=== PATIENT | female | born 1955 | race Caucasian/White ===

== ENCOUNTER 2017-08-03 12:12 | Emergency (ER) | payer OTHER, SELFPAY ==
[2017-08-03 12:27] VITALS: BP 140/76; PULSE 90; RESP 18; TEMP 37.1; O2SAT 98; BMI 29.2
--- NOTE | 2017-08-03 12:30 | HMH.EDUTC ---
[facility] [place] Clinical Impression: URI (upper respiratory infection) Qualifiers: URI type: unspecified URI Qualified Code(s): J06.9 - Acute upper respiratory infection, unspecified Disposition: Home, Self-Care Condition on Discharge: Good Instructions: DI for Cough -- Adult, Sore Throat, DI for Nasal Congestion Additional Instructions: * Monitor Temp. Tylenol and/or Ibuprofen as needed. ER if fever is no less than 101 despite alternating Tylenol and Ibuprofen * Encourage fluids, water, Gatorade, powerade, pedialyte if infant/toddler/or child * Warm salt water gargles for throat irritation *Warm fluids *Sore throat lozenges *Sleep elevated *humidifier or vaporizer Lots of rest Increase fluids, water, Gatorade, powerade Follow up IMMEDIATELY for new or worsening of symptoms OR no noticeable improvement over the next 48-72 hours. 911 immediately for any life threatening symptoms such as chest pain or difficulty breathing Prescriptions: Albuterol Sulfate [Albuterol HFA Inhaler] 2 puffs IH Q6HP PRN #1 inh PRN Reason: Shortness Of Breath Or Wheezing Azithromycin [Z-Milton 250mg Tab] 250 mg PO UD DOSE PK #6 tab Benzonatate [Tessalon Perle 100mg Cap] 100 mg PO TID #20 cap predniSONE [Prednisone 5mg Tab Dose-Pack] 5 mg PO UD DOSE PK #1 pack Referrals: Sukhi Lui MD [Primary Care Provider] - Time of Disposition: 12:40 Medical Decision Making - Medical Records Medical records reviewed: Yes: I reviewed the patient's medical records. Vital Signs: 08/03/17 12:27 Temperature 98.7 F Temperature Source Temporal Artery Scan Pulse Rate [Right] 90 Respiratory Rate 18 Blood Pressure [Right Arm] 140/76 Blood Pressure Mean [Right Arm] 97 Blood Pressure Source [Right Arm] Automatic Cuff Blood Pressure Position [Right Arm] Sitting 02 Sat by Pulse Oximetry 98 Oxygen Delivery Method Room Air - Jay Inquiry Pt receiving controlled substance: No Jay was queried for this patient: No [facility] [place] - General Stated complaint: congestion Mode of Arrival: Ambulatory Source of Information: Patient Limitations: No Limitations Description of Symptoms (Recalled from Triage Doc. by RN): COUGH, CONGESTION X2 MONTHS HEENT Symptoms (Recalled from RN notes): Yes Resp Symptoms (Recalled from RN notes): No Skin Symptoms (Recalled from RN notes): No MS Symptoms (Recalled from RN notes): No Functional Status (Recalled from RN notes): N - History of Present Illness Provider Complaint: Patient state that she has been having upper respiratory symptoms on and off for several months State that it has continued to get worse State that she is having sinus pain and pressure along with cough State that she has tried several over the counter medications for cough and none have helped - Related Data Previous Rx's Medication Instructions Recorded Albuterol Sulfate [Albuterol HFA 2 puffs IH Q6HP PRN #1 inh 08/03/17 Inhaler] Azithromycin [Z-Milton 250mg Tab] 250 mg PO UD DOSE PK #6 tab 08/03/17 Benzonatate [Tessalon Perle 100mg 100 mg PO TID #20 cap 08/03/17 Cap] predniSONE [Prednisone 5mg Tab 5 mg PO UD DOSE PK #1 pack 08/03/17 Dose-Pack] - Worker's Comp Is this a Worker's Comp case?: No [facility] History I have reviewed the patient's past medical history: Yes - *Social History Smoking Status: Current every day smoker Tobacco Type: cigarettes Alcohol Intake: never - Psychiatric History Expresses thoughts of harming self/others: None Suicide Plan Description: No Plan ROS Obtained: Yes All systems reviewed & no additional complaints - Constitutional Constitutional: Reports chills - ENT Ears, Nose, Mouth, and Throat: Reports otalgia, Reports sinus pain, Reports sore throat - Respiratory Respiratory: Yes cough Physical Exam - General General appearance: alert, in no apparent distress - Respiratory Respiratory exam: Present: normal lung sounds bilaterally. Absent: respiratory distress - Cardi
--- NOTE | 2017-08-03 12:36 | ED_ITS ---
[facility] [place] Clinical Impression: URI (upper respiratory infection) Qualifiers: URI type: unspecified URI Qualified Code(s): J06.9 - Acute upper respiratory infection, unspecified Disposition: Home, Self-Care Condition on Discharge: Good Instructions: DI for Cough -- Adult, Sore Throat, DI for Nasal Congestion Additional Instructions: * Monitor Temp. Tylenol and/or Ibuprofen as needed. ER if fever is no less than 101 despite alternating Tylenol and Ibuprofen * Encourage fluids, water, Gatorade, powerade, pedialyte if infant/toddler/or child * Warm salt water gargles for throat irritation *Warm fluids *Sore throat lozenges *Sleep elevated *humidifier or vaporizer Lots of rest Increase fluids, water, Gatorade, powerade Follow up IMMEDIATELY for new or worsening of symptoms OR no noticeable improvement over the next 48-72 hours. 911 immediately for any life threatening symptoms such as chest pain or difficulty breathing Prescriptions: Albuterol Sulfate [Albuterol HFA Inhaler] 2 puffs IH Q6HP PRN #1 inh PRN Reason: Shortness Of Breath Or Wheezing Azithromycin [Z-Milton 250mg Tab] 250 mg PO UD DOSE PK #6 tab Benzonatate [Tessalon Perle 100mg Cap] 100 mg PO TID #20 cap predniSONE [Prednisone 5mg Tab Dose-Pack] 5 mg PO UD DOSE PK #1 pack Referrals: Sukhi Lui MD [Primary Care Provider] - Time of Disposition: 12:40 Medical Decision Making - Medical Records Medical records reviewed: Yes: I reviewed the patient's medical records. Vital Signs: 08/03/17 12:27 Temperature 98.7 F Temperature Source Temporal Artery Scan Pulse Rate [Right] 90 Respiratory Rate 18 Blood Pressure [Right Arm] 140/76 Blood Pressure Mean [Right Arm] 97 Blood Pressure Source [Right Arm] Automatic Cuff Blood Pressure Position [Right Arm] Sitting 02 Sat by Pulse Oximetry 98 Oxygen Delivery Method Room Air - Jay Inquiry Pt receiving controlled substance: No Jay was queried for this patient: No [facility] [place] HPI - General Stated complaint: congestion Mode of Arrival: Ambulatory Source of Information: Patient Limitations: No Limitations Description of Symptoms (Recalled from Triage Doc. by RN): COUGH, CONGESTION X2 MONTHS HEENT Symptoms (Recalled from RN notes): Yes Resp Symptoms (Recalled from RN notes): No Skin Symptoms (Recalled from RN notes): No MS Symptoms (Recalled from RN notes): No Functional Status (Recalled from RN notes): N - History of Present Illness Provider Complaint: Patient state that she has been having upper respiratory symptoms on and off for several months State that it has continued to get worse State that she is having sinus pain and pressure along with cough State that she has tried several over the counter medications for cough and none have helped - Related Data Previous Rx's Medication Instructions Recorded Albuterol Sulfate [Albuterol HFA 2 puffs IH Q6HP PRN #1 inh 08/03/17 Inhaler] Azithromycin [Z-Milton 250mg Tab] 250 mg PO UD DOSE PK #6 tab 08/03/17 Benzonatate [Tessalon Perle 100mg 100 mg PO TID #20 cap 08/03/17 Cap] predniSONE [Prednisone 5mg Tab 5 mg PO UD DOSE PK #1 pack 08/03/17 Dose-Pack] - Worker's Comp Is this a Worker's Comp case?: No [facility] History I have reviewed the patient's past medical history: Yes - *Social History Smoking Status: Current every day smoker Tobacco Type: cigarettes
[2017-08-03 12:51] VITALS: BP 140/76; PULSE 90; RESP 18; TEMP 37.1
== END 2017-08-03 12:52 | disposition home or self-care (01) ==
PROVIDERS: Emergency Provider Nurse Practitioner; PCP Family Medicine
DX: J06.9 Acute upper respiratory infection, unspecified (principal)
CPT/HCPCS: 99201

== ENCOUNTER 2017-08-23 13:57 | Emergency (ER) | payer OTHER, SELFPAY ==
[2017-08-23 15:38] VITALS: BP 141/91; PULSE 107; RESP 20; TEMP 36.3; O2SAT 95; BMI 30.2
--- NOTE | 2017-08-23 16:14 | HMH.EDUTC ---
[facility] [place] Clinical Impression: Allergic bronchitis Qualifiers: Asthma severity: unspecified severity Asthma complication type: with acute exacerbation Qualified Code(s): J45.901 - Unspecified asthma with (acute) exacerbation Disposition: Home, Self-Care Condition on Discharge: Good Instructions: DI for Acute Bronchitis, DI for Allergic Rhinitis Additional Instructions: * No sign of bacterial infection. Doubt antibiotics would help you feel any better. Sounds like triggered by allergies. * Start antihistamine of your choice and take daily. (Zyrtec or jonelle since claritin doesn't help you) * Monitor Temp. Fever wouldn't be expected. Follow up if fevers develop. * humidifier/vaporizer/hot steamy shower * Inhaler every 4-6 hours as needed like we discussed. Should help open airways and improve cough, wheezing, shortness of breath. * Mucinex during the day for your cough and cough suppressant only at night. Be sure to drink lots of water. Insurance may not cover a prescription of mucinex. Might be cheaper to get 400mg tablets and take 2 tablets morning, midday and evening all with lots of water. * Promethazine DM as you requested since sherry padron didn't help. Remember this will cause drowsiness. Use it only at night. No driving, operating machinery or caring for small children after taking it. * Start steroid today. Helps with inflammation therefore, cough. Follow directions on package. Rvwd side effects. Pt has taken them before and wants to repeat them to finally shake this . Prescriptions: predniSONE [Prednisone 10mg Tab Dose-Pack] 10 mg PO UD DOSE PK #1 pack Promethazine/Dextromethorphan [Promethazine-Dm Syrup] 5 - 10 ml PO HS PRN #120 ml PRN Reason: Cough Referrals: Sukhi Lui MD [Primary Care Provider] - (IMMEDIATELY for new or worsening symptoms OR no noticeable improvement over the next 72 hours OR symptoms return again after improving. 911 for difficulty breathing.) Time of Disposition: 16:29 Medical Decision Making Vital Signs: 08/23/17 15:38 Temperature 97.4 F L Temperature Source Temporal Artery Scan Pulse Rate [Right Radial] 107 H Respiratory Rate 20 Blood Pressure [Right Arm] 141/91 Blood Pressure Mean [Right Arm] 107 Blood Pressure Source [Right Arm] Automatic Cuff Blood Pressure Position [Right Arm] Sitting 02 Sat by Pulse Oximetry 95 Oxygen Delivery Method Room Air - Jay Inquiry Pt receiving controlled substance: No [facility] [place] - General Stated complaint: upper respiratory problems Time Seen by Provider: 08/23/17 16:15 Mode of Arrival: Family Vehicle Source of Information: Patient Limitations: No Limitations Description of Symptoms (Recalled from Triage Doc. by RN): PT C/O HEAD CONGESTION AND COUGH. HEENT Symptoms (Recalled from RN notes): Yes (HEAD CONGESTION) Resp Symptoms (Recalled from RN notes): Yes (COUGH) Skin Symptoms (Recalled from RN notes): No MS Symptoms (Recalled from RN notes): No Functional Status (Recalled from RN notes): NA - History of Present Illness Provider Complaint: c/o the same upper respiratory virus again . cough, chest congestion, rhinorrhea, sneezing starting again around one week ago when the rain set in . Hx of multiple environmental allergies but can't remember to take anyting regularly for it. Symptoms started around [place]. Still blames it on moving the cat inside when really cold outside. No improvement by 08/17/17 so came into clinic. Dx URI and improved but didn't resolve with zpack, albuterol, prednisone, tessalon perles. Doesn't feel like tessalon perles helped and asking for promethazine DM instead. Albuterol as needed few times a week helps open airways. Denies wheezing. No fever. sputum only occasional. Clear. - Related Data Previous Rx's Medication Instructions Recorded Promethazine/Dextromethorphan 5 - 10 ml PO HS PRN #120 ml 08/23/17 [Promethazine-Dm Syrup] predniSONE [Prednisone 10mg Tab 10 mg PO UD DOSE PK #1 pac
[2017-08-23 16:36] VITALS: BP 134/77; PULSE 76; RESP 18; TEMP 36.6; O2SAT 99
== END 2017-08-23 16:37 | disposition home or self-care (01) ==
PROVIDERS: Emergency Provider Nurse Practitioner Family; PCP Family Medicine
DX: J45.901 Unspecified asthma with (acute) exacerbation (principal); F17.210 Nicotine dependence, cigarettes, uncomplicated
CPT/HCPCS: 99202

== ENCOUNTER 2020-03-23 13:49 | Emergency (ER) | payer MEDICARE, BC, SELFPAY ==
[2020-03-23 14:03] VITALS: BP 131/88; PULSE 87; RESP 20; TEMP 36.6; O2SAT 96; BMI 30.2
[2020-03-23 14:06] LABS: Apearance,Urine Clear (Clear); Color,Urine Yellow (Yellow); PH,Urine 5.5 (5.0-8.5); Protein,Urine Negative (Negative); Specific Gravity, Urine 1.015 (1.005-1.030)
--- NOTE | 2020-03-23 14:06 | HMH.EDUTC ---
[facility] [place] Disposition Clinical Impression: UTI (urinary tract infection) Qualifiers: Urinary tract infection type: site unspecified Hematuria presence: with hematuria Qualified Code(s): N39.0 - Urinary tract infection, site not specified Disposition: Home, Self-Care Condition on Discharge: Good Instructions: DI for Urinary Tract Infection (UTI) Additional Instructions: Drink plenty of fluids. Take tylenol or ibuprofen for pain or fever. Take the medications as directed. Follow up with your regular doctor. GO TO THE ER FOR ANY WORSENING SYMPTOMS The pyridium will make your urine turn orange, this is an expected side effect. It will stain your clothes if it comes into contact with them. Prescriptions: Ondansetron [Zofran 4mg ODT] 4 mg PO Q8HP PRN #20 tab.rapdis PRN Reason: Nausea Transmission Status: Received by [id number] Sulfamethoxazole/Trimethoprim [Bactrim DS tablet] 1 each PO BID 7 Days #14 tab Transmission Status: Received by [facility] Phenazopyridine HCl [Pyridium 200mg Tablet] 200 pow PO TID #6 tab Transmission Status: Received by [facility] Referrals: Provider,Referral, [Primary Care Provider] - Time of Disposition: 14:24 Medical Decision Making - Medical Records Medical records reviewed: No: I reviewed the patient's medical records. - Jay Inquiry Pt receiving controlled substance: No Vital Signs: 03/23/20 14:03 03/23/20 14:25 Temperature 97.8 F 97.8 F Temperature Source Oral Pulse Rate 87 Pulse Rate [Right Brachial] 87 Respiratory Rate 20 20 Blood Pressure 131/88 Blood Pressure [Right Arm] 131/88 Blood Pressure Mean [Right Arm] 102 Blood Pressure Source [Right Arm] Automatic Cuff Blood Pressure Position [Right Arm] Sitting 02 Sat by Pulse Oximetry 96 Oxygen Delivery Method Room Air - Lab Data Lab results reviewed: Yes: I reviewed the patient's lab results. Lab Results 03/23/20 14:04: Urine Color Yellow, Urine Appearance Clear, Urine pH 5.5, Ur Specific [place] 1.015, Urine Protein Negative, Urine Glucose (UA) Negative, Urine Ketones Negative, Urine Blood Negative, Urine Nitrate Positive A, Urine Bilirubin Negative, Urine Urobilinogen 0.2, Ur Leukocyte Esterase Negative Orders (Tests/Meds): ORDERS Category Date Time Status Urine Culture Stat Micro 03/23/20 14:[address] [facility] [place] HPI - General Stated complaint: possible UTI Time Seen by Provider: 03/23/20 14:06 - History of Present Illness Provider Complaint: She complains of urinary frequency and dysuria for the past 3 days. She started taking azo yesterday and it helped her symptoms some, but she states that today they are getting worse. - Related Data Previous Rx's Medication Instructions Recorded Ondansetron [Zofran 4mg ODT] 4 mg PO Q8HP PRN #20 tab.rapdis 03/23/20 Phenazopyridine HCl [Pyridium 200 pow PO TID #6 tab 03/23/20 200mg Tablet] Sulfamethoxazole/Trimethoprim 1 each PO BID 7 Days #14 tab 03/23/20 [Bactrim DS tablet] Allergies Allergy/AdvReac Type Severity Reaction Status Date / Time codeine Allergy Mild Verified 08/03/17 12:30 [facility] History - Hepatitis A Screen Attestation statement:: This patient has been screened for Hepatitis A risk factors. I have reviewed the patient's past medical history: Yes Medical History: Denies:: Diabetes Mellitus Type 1, Diabetes Mellitus Type 2, Hypertension Other Surgeries: Yes: Other (cholecystectomy) - Social History Smoking Status: Current every day smoker Tobacco Type: cigarettes # Packs/Day (cigarettes): 1 Alcohol Intake: never Occupational Status: other ROS Obtained: Yes All systems reviewed & no additional complaints - Constitutional Constitutional: Denies chills, Denies fever(s), Reports poor appetite, Reports malaise - Eyes Eyes: Denies eye discharge - Gastrointestinal Gastrointestingal: Reports: nausea. Denies: system reviewed and no a
[2020-03-23 14:07] LABS: Bilirubin,Urine Negative (Negative); Blood, Urine Negative (Negative); Glucose,Urine (UA) Negative (Negative); Ketones,Urine Negative (Negative); UTC Leukocyte Esterase,Urine Negative (Negative); UTC Nitrate,Urine Positive (Negative); Urobilinogen,Urine 0.2 EU/dl (0.2)
[2020-03-23 14:25] VITALS: BP 131/88; PULSE 87; RESP 20; TEMP 36.6; O2SAT 96
== END 2020-03-23 14:28 | disposition home or self-care (01) ==
PROVIDERS: Emergency Provider Nurse Practitioner Family
DX: N30.00 Acute cystitis without hematuria (principal); F17.210 Nicotine dependence, cigarettes, uncomplicated; Z88.5 Allergy status to narcotic agent
CPT/HCPCS: G0463; 81003; 87086; 99201

== ENCOUNTER 2020-04-14 16:05 | Emergency (ER) | payer MEDICARE, BC, SELFPAY ==
[2020-04-14 17:09] VITALS: BP 148/87; PULSE 101; RESP 18; TEMP 36.7; O2SAT 94; BMI 30.2
[2020-04-14 17:21] LABS: Apearance,Urine Clear (Clear); Bilirubin,Urine Negative (Negative); Blood, Urine Negative (Negative); Color,Urine Yellow (Yellow); Glucose,Urine (UA) Negative (Negative); Ketones,Urine Negative (Negative); Protein,Urine Negative (Negative); UTC Leukocyte Esterase,Urine Negative (Negative); UTC Nitrate,Urine Negative (Negative); Urobilinogen,Urine 0.2 EU/dl (0.2)
--- NOTE | 2020-04-14 17:50 | HMH.EDUTC ---
[facility] [place] Disposition Clinical Impression: Urinary problem Disposition: Home, Self-Care Condition on Discharge: Good Instructions: DI for Urinary Tract Infection (UTI) Additional Instructions: Make sure that you are drinking plenty of fluids At this time your urine did not indicate infection if you continue to have UTI symptoms follow up with your Family Doctor for retesting of your urine you was given a list of accepting doctors Return if needed Straight to ER If any life threatening symptoms Recommend getting Family Doctor for extensive work up and laboratory testing Referrals: PCP,No [Primary Care Provider] - As needed Time of Disposition: 18:02 Medical Decision Making - Jay Inquiry Pt receiving controlled substance: No Jay was queried for this patient: No Vital Signs: 04/14/20 17:09 Temperature 98.1 F Temperature Source Oral Pulse Rate [Right Brachial] 101 H Respiratory Rate 18 Blood Pressure [Right Arm] 148/87 H Blood Pressure Mean [Right Arm] 107 Blood Pressure Source [Right Arm] Automatic Cuff Blood Pressure Position [Right Arm] Sitting 02 Sat by Pulse Oximetry 94 L - Lab Data Lab results reviewed: Yes: I reviewed the patient's lab results. Lab Results 04/14/20 17:03: Urine Color Yellow, Urine Appearance Clear, Urine pH 7.0, Ur Specific [place] 1.020, Urine Protein Negative, Urine Glucose (UA) Negative, Urine Ketones Negative, Urine Blood Negative, Urine Nitrate Negative, Urine Bilirubin Negative, Urine Urobilinogen 0.2, Ur Leukocyte Esterase Negative Medical Decision Narrative: Discussed the importance with patient to make sure that she takes all prescribed medication for the duration that the medication is prescribed to clear up infection Patient informed that her Urine test does not indicate infection at this time and if she continues to have symptoms recommend follow up with PCP for retesting of her urine and further treatment if needed Denies fever denies low back pain [facility] [place] HPI - General Stated complaint: Possible UTI Time Seen by Provider: 04/14/20 17:50 Mode of Arrival: Family Vehicle Description of Symptoms (Recalled from Triage Doc. by RN): Pt states she was treated for UTI a 2 wks ago with Bactrim and isn't feeling any better HEENT Symptoms (Recalled from RN notes): No Resp Symptoms (Recalled from RN notes): No Skin Symptoms (Recalled from RN notes): No MS Symptoms (Recalled from RN notes): No Functional Status (Recalled from RN notes): WNl - History of Present Illness Provider Complaint: Patient state that she was seen and treated for UTI about 3 weeks ago and started taking the bactrim and then stopped and a few days ago realized she didnt take all her medication after she started having symptoms again and she has since finished the bactrim and wasnt sure if she needed more to clear up the infection - Related Data Previous Rx's Medication Instructions Recorded Ondansetron [Zofran 4mg ODT] 4 mg PO Q8HP PRN #20 tab.rapdis 03/23/20 Phenazopyridine HCl [Pyridium 200 pow PO TID #6 tab 03/23/20 200mg Tablet] Sulfamethoxazole/Trimethoprim 1 each PO BID 7 Days #14 tab 03/23/20 [Bactrim DS tablet] Allergies Allergy/AdvReac Type Severity Reaction Status Date / Time codeine Allergy Mild Verified 08/03/17 12:30 - Worker's Comp Is this a Worker's Comp case?: No [facility] History - Hepatitis A Screen Drug use history?: No High risk sexual behaviors?: No History of sexually transmitted infection?: No Currently employed?: No Childcare worker?: No Do you have indoor plumbing?: Yes Do you have electricity?: Yes Attestation statement:: This patient has been screened for Hepatitis A risk factors. I have reviewed the patient's past medical history: Yes Medical History: Denies:: Diabetes Mellitus Type 1, Diabetes Mellitus Type 2, Hypertension Other Surgeries: Yes: Other (cholecystectomy) - Social History Smoking Status: Current every day smoker Tobacco Typ
[2020-04-14 18:10] VITALS: BP 148/87; PULSE 101; RESP 18; TEMP 36.7; O2SAT 94
== END 2020-04-14 18:14 | disposition home or self-care (01) ==
PROVIDERS: Emergency Provider Nurse Practitioner
DX: N39.0 Urinary tract infection, site not specified (principal); F17.210 Nicotine dependence, cigarettes, uncomplicated; Z88.5 Allergy status to narcotic agent; Z90.49 Acquired absence of other specified parts of digestive tract
CPT/HCPCS: G0463; 81003; 99201

== ENCOUNTER → 2020-07-11 14:20 | Outpatient (CLI) | payer MEDICARE, BC, SELFPAY ==
[2020-07-11 16:08] LABS: Basophils # 0.1 K/mm3 (0-0.2); Basophils % 1.1 % (0.1-2.0); Eosinophils # 0.2 K/mm3 (0.0-0.4); Eosinophils % 2.3 % (0.1-12.0); Hematocrit 55.1 % (37.0-47.0); Lymphocytes # 2.4 K/mm3 (0.7-4.5); Lymphocytes % 26.9 % (10-50); Mean Corpuscular HGB Conc 33.5 g/dL (31.8-35.4); Mean Corpuscular Hemoglobin 32.3 pg (27.0-31.2); Mean Corpuscular Volume 96.2 fl (81-99); Mean Platelet Volume 9.3 fl (7.4-10.4); Monocytes # 0.6 K/mm3 (0.1-1.0); Monocytes % 6.5 % (1.7-9.3); Neutrophils # 5.5 K/mm3 (1.8-7.8); Neutrophils % 63.2 % (37.0-80.0); Platelet Count 441 K/mm3 (142-424); Red Blood Count 5.73 M/mm3 (4.20-5.40); White Blood Count 8.7 K/mm3 (4.8-10.8)
[2020-07-11 16:13] LABS: Alanine Aminotransferase 23 U/L (12-78); Albumin Level 4.8 g/dl (3.5-5.0); Albumin/Globulin Ratio 1.3 (1.1-1.8); Alkaline Phosphatase 137 U/L (38-126); Anion Gap 13.8 mEq/L (5-15); Aspartate Amino Transferase 27 U/L (14-36); Bilirubin,Total 0.9 mg/dl (0.2-1.3); Blood Urea Nitrogen 10 mg/dl (7-17); Calcium 10.2 mg/dl (8.4-10.2); Carbon Dioxide 27 mmol/L (22.0-30.0); Chloride 102 mmol/L (98-107); Chol/HDL Ratio 5.8 (1-3.5); Cholesterol 209 mg/dl (140-200); Estimated Glomerular Filt Rate 100 ml/min (>60); GFR (African American) 121 ML/MIN (>60); Globulin 3.8 g/dL (1.3-3.2); Glucose 123 mg/dl (74-100); HDL Cholesterol 36 mg/dl (40-60); Potassium 4.8 mmoL/L (3.5-5.1); Sodium 138 mmol/L (136-145); Total Protein,Serum 8.6 g/dl (6.3-8.2); Triglycerides 243 mg/dl (30-150); VLDL Cholesterol 49 mg/dL (0-40)
[2020-07-11 16:25] LABS: Direct LDL Cholesterol 126.69 mg/dL (100-129)
[2020-07-11 16:31] LABS: T4 (Thyroxine) 9.3 ug/dl (5.53-11.0)
[2020-07-11 16:44] LABS: Thyroid Stimulating Hormone 3.94 uIU/mL (0.465-4.68)
[2020-07-11 18:06] LABS: Hemoglobin 18.5 g/dL (12.2-16.2)
[2020-07-12 13:50] LABS: Hemoglobin A1C 5.9 % (4.0-6.0)
== END ==
PROVIDERS: Visit Provider Nurse Practitioner Family
DX: I10 Essential (primary) hypertension (principal); R53.83 Other fatigue; Z00.00 Encounter for general adult medical examination without abnormal findings; N39.0 Urinary tract infection, site not specified; J06.9 Acute upper respiratory infection, unspecified; R73.09 Other abnormal glucose
CPT/HCPCS: 80053; 80061; 83036; 84436; 84443; 85025; 87086

== ENCOUNTER → 2020-07-17 16:33 | Outpatient (CLI) | payer MEDICARE, BC, SELFPAY ==
--- NOTE | 2020-07-17 16:36 | XR_ITS ---
PROCEDURE: XR CHEST 2V CLINICAL HISTORY: elevated alk phos. COMPARISON: No exams were available for comparison FINDINGS: The cardiomediastinal silhouette and pulmonary vascularity are within normal limits. No lobar consolidation or collapse. There are increased markings in the right perihilar region felt to be due to overlying vasculature. No acute bony abnormalities. IMPRESSION: No acute findings. Dictated by: Esvin John MD 07/18/2020 06:00 Esvin John MD in [place] 07/18/2020 06:00
== END ==
PROVIDERS: PCP Nurse Practitioner Family; Visit Provider Nurse Practitioner Family
DX: R74.8 Abnormal levels of other serum enzymes (principal)
CPT/HCPCS: 71046

== ENCOUNTER 2020-09-30 12:56 | Emergency (ER) | payer MEDICARE, BC, SELFPAY ==
[2020-09-30 13:19] VITALS: BP 130/75; PULSE 86; RESP 14; TEMP 36.9; O2SAT 95; BMI 27.3
[2020-09-30 13:23] LABS: Apearance,Urine Clear (Clear); Color,Urine Yellow (Yellow)
[2020-09-30 13:24] LABS: Bilirubin,Urine Negative (Negative); Blood, Urine Negative (Negative); Glucose,Urine (UA) Negative (Negative); Ketones,Urine Negative (Negative); Protein,Urine Negative (Negative); Specific Gravity, Urine 1.015 (1.005-1.030); UTC Leukocyte Esterase,Urine Negative (Negative); UTC Nitrate,Urine Positive (Negative); Urobilinogen,Urine 2 EU/dl (0.2)
--- NOTE | 2020-09-30 13:33 | HMH.EDUTC ---
[facility] [place] [place] Impression: UTI (urinary tract infection) Qualifiers: Urinary tract infection type: site unspecified Hematuria presence: with hematuria Qualified Code(s): N39.0 - Urinary tract infection, site not specified Disposition: Home, Self-Care Condition on Discharge: Good Instructions: Urinary Tract Infection, DI for Urinary Tract Infection (UTI) Additional Instructions: Drink plenty of fluids. Take tylenol or ibuprofen for pain or fever. Take the medications as directed. Follow up with your regular doctor. GO TO THE ER FOR ANY WORSENING SYMPTOMS The pyridium will make your urine turn orange, this is an expected side effect. It will stain your clothes if it comes into contact with them. Prescriptions: Ondansetron [Zofran 4mg ODT] 4 mg PO Q8HP PRN #12 tab.rapdis PRN Reason: Nausea [facility] Status: [facility] Sulfamethoxazole/Trimethoprim [Bactrim DS tablet] 1 each PO BID 7 Days #14 tab Transmission Status: [facility] Phenazopyridine HCl [Pyridium 200mg Tablet] 200 pow PO TID #6 tab Transmission Status: [facility] Referrals: Shu Munson APRN [Primary Care Provider] - Time of Disposition: 13:41 Medical Decision Making - Medical Records Medical records reviewed: No: I reviewed the patient's medical records. - Jay Inquiry Pt receiving controlled substance: No Vital Signs: 09/30/20 13:19 09/30/20 13:45 Temperature 98.4 F 98 F Temperature Source Oral Pulse Rate 80 Pulse Rate [Right] 86 Respiratory Rate 14 18 Blood Pressure 129/79 Blood Pressure [Right Arm] 130/75 Blood Pressure Mean [Right Arm] 93 Blood Pressure Source [Right Arm] Automatic Cuff Blood Pressure Position [Right Arm] Sitting 02 Sat by Pulse Oximetry 95 Oxygen Delivery Method Room Air - Lab Data Lab results reviewed: Yes: I reviewed the patient's lab results. Lab Results 09/30/20 13:11: Urine Color Yellow, Urine Appearance Clear, Urine pH 7.0, Ur Specific [place] 1.015, Urine Protein Negative, Urine Glucose (UA) Negative, Urine Ketones Negative, Urine Blood Negative, Urine Nitrate Positive A, Urine Bilirubin Negative, Urine Urobilinogen 2, Ur Leukocyte Esterase Negative Orders (Tests/Meds): ORDERS Category Date Time Status Urine Culture Stat Micro 09/30/20 15:15 [place] [facility] [place] General Stated complaint: possible UTI Time Seen by Provider: 09/30/20 13:33 Mode of Arrival: Ambulatory Source of Information: Patient Limitations: No Limitations Description of Symptoms (Recalled from Triage Doc. by RN): pt thinks she has a uti. burning with urination. HEENT Symptoms (Recalled from RN notes): No Resp Symptoms (Recalled from RN notes): No Skin Symptoms (Recalled from RN notes): No MS Symptoms (Recalled from RN notes): No Functional Status (Recalled from RN notes): na - History of Present Illness Provider Complaint: She c/o burning while urinating for the past 2 days. She ran a fever last night up to 100.8. She also c/o urinary frequency. - Related Data Previous Rx's Medication Instructions Recorded prednisone 20 mg tablet 20 mg PO BID #10 tab 07/11/20 Ondansetron [Zofran 4mg ODT] 4 mg PO Q8HP PRN #12 tab.rapdis 09/30/20 Phenazopyridine HCl [Pyridium 200 pow PO TID #6 tab 09/30/20 200mg Tablet] Sulfamethoxazole/Trimethoprim 1 each PO BID 7 Days #14 tab 09/30/20 [Bactrim DS tablet] Allergies Allergy/AdvReac Type Severity Reaction Status Date / Time codeine Allergy Mild Verified 09/30/20 13:19 - Worker's Comp Is this a Worker's Comp case?: No [facility] History - Hepatitis A Screen Drug use history?: No High risk sexual behaviors?: No History of sexually transmitted infection?: No Currently employed?: No Childcare worker?: No Do you have indoor plumbing?: Yes Do you have electricity?: Yes Attestation statement:: This patient has been screened for Hepati
[2020-09-30 13:45] VITALS: BP 129/79; PULSE 80; RESP 18; TEMP 36.6
== END 2020-09-30 13:47 | disposition home or self-care (01) ==
PROVIDERS: Emergency Provider Nurse Practitioner Family; PCP Nurse Practitioner Family
DX: N30.00 Acute cystitis without hematuria (principal); F17.210 Nicotine dependence, cigarettes, uncomplicated; Z88.5 Allergy status to narcotic agent
CPT/HCPCS: G0463; 81003; 87086; 99202

== ENCOUNTER → 2021-02-18 13:31 | Outpatient (CLI) | payer MEDICARE, BC, SELFPAY ==
--- NOTE | 2021-02-18 13:32 | MM_ITS ---
PROCEDURE: MM DIG MAMM BI DX W/CAD Digital Breast Tomosynthesis Included Right breast ultrasound complete with axilla CLINICAL INDICATION: breast mass COMPARISON: US US BREAST RT COMPLETE from 02/24/2021 TECHNIQUE: Standard CC and MLO images and 3D Tomosynthesis was obtained. R2 CAD reviewed. FINDINGS: Palpable areas of concern are reported involving the lateral and medial aspect of the right breast. Scattered areas of fibroglandular tissue. There are no previous exams available for comparison. Palpable abnormality reported in the upper outer right breast and in the medial left breast. Scattered small benign-appearing nodular opacities are present bilaterally. This may be due to small cysts or islands of fibroglandular tissue. Asymmetric density is present in the outer right breast as seen on the CC view which mostly compresses out on the focal spot compression view. Ultrasound right breast: No cystic or solid lesions evident. There are scattered small areas of increased echogenicity consistent with small lipomas. Small nodes are present in the axilla. IMPRESSION: Scattered areas of asymmetric density in both breasts. Since this is the patient's baseline exam, would suggest a six-month follow-up to confirm stability BI-RAD Category: 3 Probably Benign Finding Short Term Follow-Up FOLLOW-UP: 6M 6 Month Follow-up (A letter has been sent to the patient regarding results of the study.) Dictated by: Esvin John MD 03/04/2021 14:49 Esvin John MD in [place] 03/04/2021 14:49
== END ==
PROVIDERS: PCP Nurse Practitioner Family; Visit Provider Nurse Practitioner Family
DX: N63.0 Unspecified lump in unspecified breast (principal); N64.59 Other signs and symptoms in breast
CPT/HCPCS: 77062; 77066; G0279

== ENCOUNTER → 2021-02-24 14:17 | Outpatient (CLI) | payer MEDICARE, BC, SELFPAY ==
--- NOTE | 2021-02-24 14:17 | US_ITS ---
PROCEDURE: MM DIG MAMM BI DX W/CAD Digital Breast Tomosynthesis Included Right breast ultrasound complete with axilla CLINICAL INDICATION: breast mass COMPARISON: US US BREAST RT COMPLETE from 02/24/2021 TECHNIQUE: Standard CC and MLO images and 3D Tomosynthesis was obtained. R2 CAD reviewed. FINDINGS: Palpable areas of concern are reported involving the lateral and medial aspect of the right breast. Scattered areas of fibroglandular tissue. There are no previous exams available for comparison. Palpable abnormality reported in the upper outer right breast and in the medial left breast. Scattered small benign-appearing nodular opacities are present bilaterally. This may be due to small cysts or islands of fibroglandular tissue. Asymmetric density is present in the outer right breast as seen on the CC view which mostly compresses out on the focal spot compression view. Ultrasound right breast: No cystic or solid lesions evident. There are scattered small areas of increased echogenicity consistent with small lipomas. Small nodes are present in the axilla. IMPRESSION: Scattered areas of asymmetric density in both breasts. Since this is the patient's baseline exam, would suggest a six-month follow-up to confirm stability BI-RAD Category: 3 Probably Benign Finding Short Term Follow-Up FOLLOW-UP: 6M 6 Month Follow-up (A letter has been sent to the patient regarding results of the study.) Dictated by: Esvin John MD 03/10/2021 10:24 Esvin John MD in [place] 03/10/2021 10:24
== END ==
PROVIDERS: PCP Nurse Practitioner Family; Visit Provider Nurse Practitioner Family
DX: R92.8 Other abnormal and inconclusive findings on diagnostic imaging of breast (principal)
CPT/HCPCS: 76641

== ENCOUNTER 2022-04-11 13:53 | Emergency (ER) | payer MEDICARE, BC, SELFPAY ==
[2022-04-11 14:26] LABS: Apearance,Urine Cloudy (Clear); Bilirubin,Urine Negative (Negative); Blood, Urine Negative (Negative); Color,Urine Dark Yellow (Yellow); Glucose,Urine (UA) Negative (Negative); Ketones,Urine Negative (Negative); Protein,Urine Negative (Negative); Urobilinogen,Urine 0.2 EU/dl (0.2)
[2022-04-11 14:27] LABS: UTC Leukocyte Esterase,Urine Negative (Negative); UTC Nitrate,Urine Positive (Negative)
[2022-04-11 14:45] VITALS: BP 140/92; PULSE 96; RESP 18; TEMP 37.2; O2SAT 93; BMI 28.5
--- NOTE | 2022-04-11 15:05 | EXP.UTC ---
Discharge Plan Disposition Patient Disposition: Home, Self-Care Condition: Good Prescriptions Prescriptions: New cephalexin 500 mg capsule 500 mg PO BID 7 Days Qty: 14 0RF phenazopyridine [Pyridium] 200 mg tablet 200 mg PO Q8H 2 Days Qty: 6 0RF No Action albuterol sulfate [Ventolin HFA] 90 mcg/actuation HFA aerosol inhaler 1 puff INHALATION Q6H Qty: 6.7 0RF Rx Instructions: administer with spacer Referrals Follow up/Referrals: Lenard Tracy MD [Primary Care Provider] - See instructions Activity Restrictions/Add. Instructions Additional Instructions/Restrictions: *Increase fluids. Water not Soda or Tea *Start antibiotic immediately and be sure to take as ordered for the FULL length of time although you should start to see improvement over the next 48 hours *Pyridium as needed Remember this medication will turn your urine . This is normal but it will stain what ever it gets on *You should not use Pyridium for more than 48 hours. If so , follow up with your primary physician to review urine culture and ensure that antibiotic is adequate for infection *Be SURE to follow up anytime for new or worsening symptoms with your family doctor. AND in 48 hours for urine culture results with your family doctor, if you do not have a doctor then you may call back to the [facility] for urine culture results and further treatment. We do recommend that you choose and establish care with a Primary Care Physician. ?AND follow up with them ?in 10-14 days to repeat UA to ensure infection is resolved and blood no longer present *Be sure to let your PCP know that we sent urine cultures from the [facility] so they can follow up to ensure that you area the on the correct antibiotic Call your doctor office and make appointment for 48 hours (2 days from today) ?to follow up and get the results of your urine culture and further treatment Clinical Impressions Clinical Impression: UTI (urinary tract infection) Instructions Patient Instructions: DI for Urinary Tract Infection (UTI), Urinary Tract Infection Discharge ED Provider: Savi Espinosa [facility] [place] H[place] General Stated complaint: possible UTI Mode of Arrival: Ambulatory Source of Information: Patient Limitations: No Limitations Time Seen by Provider: 04/11/22 15:05 Description of Symptoms (Recalled from Triage Doc. by RN): PATIENT C/O NAUSEA, URINARY FREQUENCY, PRESSURE IN BLADDER, AND PAIN WITH URINATION X 2 DAYS HEENT Symptoms (Recalled from RN notes): No Resp Symptoms (Recalled from RN notes): No Skin Symptoms (Recalled from RN notes): No MS Symptoms (Recalled from RN notes): No Functional Status (Recalled from RN notes): WNL History of Present Illness Provider Complaint: Patient states that she feels like she has a UTI States that she is having symptoms like she gets with UTI States that she has been having achy like pain in lower back, pressure and feeling of urgency and frequency States that today she was still having symptoms so she came in to get checked out Related Data Previous Rx's Medication Instructions Recorded albuterol sulfate 90 mcg/actuation 1 puff inhalation Q6H #6.7 grams 03/31/21 aerosol inhaler (Ventolin HFA) cephalexin 500 mg capsule 500 mg PO BID 7 days #14 caps 04/11/22 phenazopyridine 200 mg tablet 200 mg PO Q8H pain 2 days #6 tabs 04/11/22 (Pyridium) Allergies Allergy/AdvReac Type Severity Reaction Status Date / Time codeine Allergy Mild Verified 03/31/21 11:19 Worker's Comp Is this a Worker's Comp case?: No [facility] Medical History (Updated 04/11/22 @ 15:15 by Savi Espinosa APRN) Urinary tract infection Surgical History (Updated 04/11/22 @ 14:54 by Kathrin Hines RN) History of tubal ligation Social History (Updated 04/11/22 @ 14:54 by Kathrin Hines RN) Smoking Status: Current every day smoker tobacco type: cigarettes packs per day: 1 second hand exposure: Yes alcohol intake: never substance use type: denies use
[2022-04-11 15:23] VITALS: BP 140/92; PULSE 96; RESP 18; TEMP 37.2; O2SAT 95
== END 2022-04-11 15:26 | disposition home or self-care (01) ==
PROVIDERS: Emergency Provider Nurse Practitioner; PCP Emergency Medicine
DX: N39.0 Urinary tract infection, site not specified (principal)
CPT/HCPCS: 81003; 87086; 87088; 87186; 99212; G0463

== ENCOUNTER → 2023-03-19 16:00 | Outpatient (CLI) | payer MEDICARE, BC, SELFPAY ==
--- NOTE | 2023-03-19 16:01 | MM_ITS ---
PROCEDURE INFORMATION: Exam: MG Bilateral Screening 3D Mammography Exam date and time: 03/19/2023 3:48 PM Age: 68 years old Clinical indication: Screening mammogram. No personal or family history of breast cancer TECHNIQUE: Imaging protocol: Bilateral Screening tomosynthesis and 2D mammography including computer-aided detection (CAD) when performed. COMPARISON: 1. MG MM DIG MAMM BI DX W/CAD 02/18/2021 1:39 PM 2. US BREAST RT COMPLETE 02/24/2021 2:31 PM FINDINGS: MAMMOGRAPHY: Breast composition: There are scattered areas of fibroglandular density. Mass: None. Architectural distortion: No new or suspicious architectural distortion. Calcifications: No new or suspicious calcifications are present Asymmetric density: No new or suspicious asymmetric density is present Skin thickening: None. Axillary adenopathy: None. IMPRESSION: No mammographic evidence of malignancy. Recommend annual screening mammography unless otherwise clinically indicated. ASSESSMENT: BI-RADS category 1: Negative
== END ==
PROVIDERS: PCP Nurse Practitioner Family; Visit Provider Nurse Practitioner Family
DX: Z12.31 Encounter for screening mammogram for malignant neoplasm of breast (principal)
CPT/HCPCS: 77063; 77067

== ENCOUNTER 2023-06-25 16:27 | Emergency (ER) | payer MEDICARE, BC, SELFPAY ==
--- NOTE | 2023-06-25 16:35 | XR_ITS ---
PROCEDURE INFORMATION: Exam: XR Right Forearm Exam date and time: 06/25/2023 5:01 PM Age: 68 years old Clinical indication: Injury or trauma; Fall; Blunt trauma (contusions or hematomas); Arm, lower; Right TECHNIQUE: Imaging protocol: Radiologic exam of the right forearm. Views: 2 views. COMPARISON: No relevant prior studies available. FINDINGS: Bones/joints: Normal. Soft tissues: Normal. IMPRESSION: No acute findings.
[2023-06-25 17:10] VITALS: BP 175/84; PULSE 111; RESP 23; TEMP 36.9; O2SAT 91; BMI 33.1
--- NOTE | 2023-06-25 17:11 | ED_ITS ---
Discharge Plan Disposition Patient Disposition: Home, Self-Care Condition: Good Prescriptions Prescriptions: No Action levocetirizine [Xyzal] 5 mg tablet 5 mg PO DAILY albuterol sulfate [Ventolin HFA] 90 mcg/actuation HFA aerosol inhaler 2 puff INHALATION Q4-6H PRN (Reason: shortness of breath or wheezing) Qty: 6.7 3RF Rx Instructions: administer with spacer buspirone 7.5 mg tablet 7.5 mg PO BID PRN (Reason: anxiety) 30 Days Qty: 60 2RF docusate sodium [Colace] 100 mg capsule 100 mg PO DAILY PRN cyclobenzaprine 10 mg tablet 10 mg PO TID PRN (Reason: muscle spasm) prednisone 20 mg tablet 20 mg PO BID Patient Comments: TAKE 1 TABLET BY MOUTH TWICE DAILY WITH MEALS sertraline 25 mg tablet 25 mg PO QHS Qty: 30 1RF Referrals Follow up/Referrals: Fly Garcia DO [Staff Physician] - See instructions Bozena Washburn APRN [Primary Care Provider] - See instructions Activity Restrictions/Add. Instructions Additional Instructions/Restrictions: Rest the extremity, apply ice for 15 minutes as tolerated three or four times per day, Wear the yasmin wrap for compression, Elevate the extremity as tolerated while you are resting. Take tylenol or ibuprofen for pain. Follow up with Dr. Garcia (orthopedics). I put in a referral but you need to call his office and schedule an appointment. Follow up with your regular doctor. GO TO THE ER FOR ANY WORSENING SYMPTOMS Clinical Impressions Clinical Impression: Right forearm pain, Contusion of right forearm, Fall Instructions Patient Instructions: Contusion, DI for Contusion Discharge ED Provider: Xavi Briggs [facility] General Stated complaint: AO fall 06/24, right arm pain Time Seen by Provider: 06/25/23 17:11 History of Present Illness Provider Complaint: She states that she fell (yesterday) and came down with her right arm between her and the edge of a step. She has had right forearm pain and bruising since this happened. She denies any other injury. Related Data Home Medications Medication Instructions Recorded Confirmed levocetirizine 5 mg tablet (Xyzal) 5 mg PO DAILY 01/20/23 03/08/23 cyclobenzaprine 10 mg tablet 10 mg PO TID PRN muscle spasm 03/08/23 docusate sodium 100 mg capsule 100 mg PO DAILY PRN 03/08/23 03/08/23 (Colace) prednisone 20 mg tablet 20 mg PO BID 03/08/23 03/08/23 Previous Rx's Medication Instructions Recorded albuterol sulfate 90 mcg/actuation 2 puff inhalation Q4-6H PRN 01/20/23 aerosol inhaler (Ventolin HFA) shortness of breath or wheezing #6.7 grams buspirone 7.5 mg tablet 7.5 mg PO BID PRN anxiety 30 days 01/20/23 #60 tabs sertraline 25 mg tablet 25 mg PO QHS #30 tabs 03/08/23 Allergies Allergy/AdvReac Type Severity Reaction Status Date / Time codeine Allergy Mild Verified 03/08/23 10:19 [facility] Disclaimer: The information contained in this section may have been updated after the patient was seen, as this information can be updated by other users. Medical History Acute bronchitis Allergic bronchitis Dermatitis Immunization due Prolapse of uterus Shingles Sinusitis Strain of mid-back URI (upper respiratory infection) Urinary problem Urinary tract infection UTI (urinary tract infection) Surgical History History of tubal ligation Hx of cholecystectomy Family History Mother Parkinson disease Dementia Father Stroke Other No significant family history Social History Smoking Status: Current every day smoker tobacco type: cigarettes packs per day: 1 second hand exposure: Yes alcohol intake: never substance use type: denies use current occupational status: employed Travel in the last 8 weeks: None ROS Obtained: Yes All systems reviewed & no additional complaints except as documented Constitutional Constitutional: Denies chills and Denies fever(s) Eyes Eyes: Denies eye discharge ENT Ears, Nose, Mouth, and Throat: Denies dizziness, Denies otalgia and Denies sore throat Cardiovascular Cardiovascular: Denies chest pain Respiratory Respiratory: Denies shortness of breath, Denies chest congestion, Denies cough, Denies stridor and Denies wheezing Gastrointestinal Gastrointestingal: Denies nausea or vomiting Musculoskeletal Musculoskeletal: Reports as per HPI Integumentary/Breasts Skin/Breast: Denies rash Neurologic Neurologic: Denies dizziness and Denies paresthesias Allergic/Immunologic Allergic/Immunologic: Denies wheezing Physical Exam General General appearance: alert and in no apparent distress Head Head exam: atraumatic, normocephalic and normal inspection Eye Eye exam: Present normal appearance, PERRL and EOMI ENT ENT exam: Present normal exam, normal oropharynx, mucous membranes moist, TM's normal bilaterally and normal external ear exam Neck Neck exam: Present normal inspection, full ROM and trachea midline; Absent meningismus or lymphadenopathy Chest Chest inspection: Present normal inspection and symmetric chest wall rise; Absent tenderness Respiratory Respiratory exam: Present normal lung sounds bilaterally; Absent respiratory distress Cardiovascular Cardiovascular exam: Present regular rate and normal rhythm; Absent JVD Abdominal Exam Abdominal exam: Present soft and normal bowel sounds; Absent distention, tenderness or guarding Extremities Exam Extremities exam: Present normal capillary refill; Absent calf tenderness Expanded Upper Extremity Exam Right: Shoulder exam: Present normal inspection and full ROM; Absent tenderness Arm exam: Present normal inspection and full ROM; Absent tenderness Elbow exam: Present normal inspection and full ROM; Absent tenderness, pain w/ pronation/supination or tenderness over radial head Forearm/Wrist exam: Present full ROM, tenderness and swelling; Absent abrasion, laceration, ecchymosis, deformity, crepitus, dislocation, erythema, tenderness over anatomical snuff box or pain with axial thumb loading Hand exam: Present normal inspection and full ROM; Absent tenderness Neuromotor exam: Normal wrist extension, thumb opposition, thumb IP flexion, thumb adduction and fingers 2-5 abduction Neurosensory exam: Normal radial nerve, ulnar nerve and median nerve Vascular exam: Normal capillary refill, radial pulse and ulnar pulse Back Exam Back exam: Present normal inspection; Absent tenderness Neurological Exam Neurological exam: Present alert and oriented X3 Psychiatric Psychiatric exam: Present normal affect and normal mood Skin Skin exam: Present warm, dry, intact and normal color Lymphatic Lymphatic Findings: no adenopathy Medical Decision Making Medical Records Medical records reviewed: No I reviewed the patient's medical records. Jay Inquiry Pt receiving controlled substance: No Orders (Tests/Meds): ORDERS Category Date Time Status Forearm XR right 2 views [XR forearm RT 2V] Stat Exams 06/25/23 16:35 Ordered
[2023-06-25 17:55] VITALS: BP 175/84; PULSE 111; RESP 23; TEMP 36.9; O2SAT 91
== END 2023-06-25 17:57 | disposition home or self-care (01) ==
PROVIDERS: Emergency Provider Nurse Practitioner Family; PCP Nurse Practitioner Family
DX: M79.631 Pain in right forearm (principal); S50.11XA Contusion of right forearm, initial encounter; F17.210 Nicotine dependence, cigarettes, uncomplicated; W19.XXXA Unspecified fall, initial encounter
CPT/HCPCS: 73090; 99212; 99214; G0463

== ENCOUNTER 2023-09-01 08:37 | Emergency (ER) | payer MEDICARE, BC, SELFPAY ==
[2023-09-01 08:43] VITALS: BMI 24.5
--- NOTE | 2023-09-01 08:43 | XR_ITS ---
FINAL REPORT CLINICAL HISTORY: TOE INJURY FINDINGS: Left foot Three views were obtained. Mild degenerative changes are present. There is lucency in the proximal aspect of the 1st proximal phalanx, nondisplaced fracture is not excluded. Calcaneal spurs are identified. IMPRESSION: Possible nondisplaced fracture of the 1st proximal phalanx. Follow-up may be helpful. Reviewed, Interpreted and Dictated by Elvis Kinsey III, MD Transcribed by Joie Lobo Authenticated and [facility]
[2023-09-01 08:55] VITALS: BP 162/88; PULSE 117; RESP 20; TEMP 36.7; O2SAT 98; BMI 27.3
--- NOTE | 2023-09-01 09:11 | EXP.UTC ---
Discharge Plan Disposition Patient Disposition: Home, Self-Care Condition: Good Prescriptions Prescriptions: No Action levocetirizine [Xyzal] 5 mg tablet 5 mg PO DAILY albuterol sulfate [Ventolin HFA] 90 mcg/actuation HFA aerosol inhaler 2 puff INHALATION Q4-6H PRN (Reason: shortness of breath or wheezing) Qty: 6.7 3RF Rx Instructions: administer with spacer buspirone 7.5 mg tablet 7.5 mg PO BID PRN (Reason: anxiety) 30 Days Qty: 60 2RF docusate sodium [Colace] 100 mg capsule 100 mg PO DAILY PRN cyclobenzaprine 10 mg tablet 10 mg PO TID PRN (Reason: muscle spasm) prednisone 20 mg tablet 20 mg PO BID Patient Comments: TAKE 1 TABLET BY MOUTH TWICE DAILY WITH MEALS sertraline 25 mg tablet 25 mg PO QHS Qty: 30 1RF Referrals Follow up/Referrals: Bozena Washburn APRN [Primary Care Provider] - See instructions Leslie Martínez APRN [Nurse Practitioner] - See instructions Roselyn Cantrell DPM [Staff Physician] - See instructions Activity Restrictions/Add. Instructions Additional Instructions/Restrictions: weight bearing as tolerated *RICE, Rest the extremity, Ice 15-20 minutes 3-4 times daily, Compress- wear the yasmin wrap as discussed as much as possible to help reduce swelling and pain, Elevate the extremity when at rest *Arlen tape is for support and help control swelling change it several times daily and check skin underneath to avoid breakdown, use it except in the shower. Be sure that is not to tight but not to loose either *Elevate when resting? *Ibuprofen as directed on package every 6-8 hours as needed for pain an inflammation. If need something more can take Tylenol in between doses of Ibuprofen to help Immediately follow up with your family doctor for new or worsening of symptoms, or no noticeable improvement over the next 3-5 days Clinical Impressions Clinical Impression: Fracture of toe Instructions Patient Instructions: Toe Fracture, DI for Toe Fracture Discharge ED Provider: Savi Espinosa [facility] [place] HPI General Stated complaint: AO [id number], inj left tooe Mode of Arrival: Ambulatory Source of Information: Patient Limitations: No Limitations Time Seen by Provider: 09/01/23 09:11 Description of Symptoms (Recalled from Triage Doc. by RN): PATIENT C/O POSSIBLE BROKEN LEFT GREAT TOE SINCE LAST NIGHT HEENT Symptoms (Recalled from RN notes): No Resp Symptoms (Recalled from RN notes): No Skin Symptoms (Recalled from RN notes): No MS Symptoms (Recalled from RN notes): Yes Functional Status (Recalled from RN notes): WNL History of Present Illness Provider Complaint: Patient states that she was at home and was walking around object in the floor when she accidently kicked the corner of the wall with her foot and hit her left little toe State that it looked like it was out to the side so she pushed it back and wrapped it with her other toes with some wrap States this am it was still hurting and her daughter was worried where she walks alot thinking she may need a boot or something Related Data Home Medications Medication Instructions Recorded Confirmed levocetirizine 5 mg tablet (Xyzal) 5 mg PO DAILY 01/20/23 03/08/23 cyclobenzaprine 10 mg tablet 10 mg PO TID PRN muscle spasm 03/08/23 docusate sodium 100 mg capsule 100 mg PO DAILY PRN 03/08/23 03/08/23 (Colace) prednisone 20 mg tablet 20 mg PO BID 03/08/23 03/08/23 Previous Rx's Medication Instructions Recorded albuterol sulfate 90 mcg/actuation 2 puff inhalation Q4-6H PRN 01/20/23 aerosol inhaler (Ventolin HFA) shortness of breath or wheezing #6.7 grams buspirone 7.5 mg tablet 7.5 mg PO BID PRN anxiety 30 days 01/20/23 #60 tabs sertraline 25 mg tablet 25 mg PO QHS #30 tabs 03/08/23 Allergies Allergy/AdvReac Type Severity Reaction Status Date / Time codeine Allergy Mild Verified 03/08/23 10:19 Worker's Comp Is this a Worker's Comp case?: No [facility] Disclaimer: The information contained in this section may have been updated after the patient was seen, as this information can be updated by other users. Medical History Acute bronchitis Allergic bronchitis Dermatitis Immunization due Prolapse of uterus Shingles Sinusitis Strain of mid-back URI (upper respiratory infection) Urinary problem Urinary tract infection UTI (urinary tract infection) Surgical History History of tubal ligation Hx of cholecystectomy Family History Mother Parkinson disease Dementia Father Stroke Other No significant family history Social History Smoking Status: Current every day smoker tobacco type: cigarettes packs per day: 1 second hand exposure: Yes alcohol intake: never substance use type: denies use current occupational status: employed Travel in the last 8 weeks: None ROS Obtained: Yes All systems reviewed & no additional complaints except as documented and Yes Systems reviewed as appropriate & no additional complaints except as documented Constitutional Constitutional: Reports system reviewed and no additional complaints, except as documented and Reports as per HPI ENT Ears, Nose, Mouth, and Throat: Reports system reviewed and no additional complaints, except as documented and Reports as per HPI Cardiovascular Cardiovascular: Reports system reviewed and no additional complaints, except as documented and Reports as per HPI Respiratory Respiratory: Reports system reviewed and no additional complaints, except as documented and Reports as per HPI Musculoskeletal Musculoskeletal: Reports system reviewed and no additional complaints, except as documented and Reports as per HPI Comments: Pain, swelling and bruising to left little toe since hitting it on the corner of the wall last night Physical Exam General General appearance: alert and in no apparent distress ENT ENT exam: Present mucous membranes moist Respiratory Respiratory exam: Present normal lung sounds bilaterally; Absent respiratory distress or wheezes Cardiovascular Cardiovascular exam: Present regular rate, normal rhythm and normal heart sounds Expanded Lower Extremity Exam Left: Top foot image: 1. Bruising and swelling noted Neurological Exam Neurological exam: Present alert, oriented X3 and normal gait Medical Decision Making Jay Inquiry Pt receiving controlled substance: No Jay was queried for this patient: No Vital Signs: 09/01/23 08:55 Temperature 98.0 F Temperature Source Oral Pulse Rate [Right Brachial] 117 H Respiratory Rate 20 Blood Pressure [Right Arm] 162/88 H Blood Pressure Mean [Right Arm] 112 Blood Pressure Source [Right Arm] Automatic Cuff Blood Pressure Position [Right Arm] Sitting 02 Sat by Pulse Oximetry 98 Oxygen Delivery Method Room Air Orders (Tests/Meds): ORDERS Category Date Time Status Foot XR left minimum 3 views [XR foot LT min 3V] Stat Exams 09/01/23 08:43 Ordered Radiology Data #1: Image(s): Foot/Toes Image Reviewed: Yes I have reviewed radiologist's interpretation Possible nondisplaced fracture of the 1st proximal phalanx Procedures Orthopedic Splinting/Casting Injury #1: Side: left Lower Extremity Immobilizer: boot orthosis and arlen tape Post Cast/Splinting Neuro Status: intact Post Cast/Splinting Vasc Status: intact and no change
[2023-09-01 10:52] VITALS: BP 162/88; PULSE 117; RESP 20; TEMP 36.7; O2SAT 98
--- NOTE | 2023-09-01 11:16 | PC.NURSE ---
SAMANTA TAPED LEFT PINKY TOE AND 4TH TOE. POST-OP SHOE APPLIED
== END 2023-09-01 11:17 | disposition home or self-care (01) ==
PROVIDERS: Emergency Provider Nurse Practitioner; PCP Nurse Practitioner Family
DX: S92.405A Nondisplaced unspecified fracture of left great toe, initial encounter for closed fracture (principal); F17.210 Nicotine dependence, cigarettes, uncomplicated; W22.8XXA Striking against or struck by other objects, initial encounter
CPT/HCPCS: 73630; 99212; 99214; G0463

== ENCOUNTER 2023-09-14 10:37 | Outpatient (CLI) | payer MEDICARE, BC, SELFPAY ==
[2023-09-14 10:41] LABS: Microscopic, Urine URINE MICROSCOPIC (MICROSCOPIC)
--- NOTE | 2023-09-14 10:54 | XR_ITS ---
FINAL REPORT CLINICAL HISTORY: chronic low back pain COMPARISON: None FINDINGS: 3 views of the lumbar spine were obtained. There is a mild compression fracture at L5 favored to be chronic. There is mild and moderate degenerative change. Multilevel facet arthropathy is noted. There is mild anterolisthesis of L4 on L5. There are moderate vascular calcifications. No acute paraspinous soft tissue abnormalities identified. IMPRESSION: Mild L5 compression fracture, favor chronic. Mild and moderate degenerative changes. Reviewed, Interpreted and Dictated by Elvis Kinsey III, MD Transcribed by Ivett Borrero Authenticated and [facility]
[2023-09-14 11:04] LABS: Basophils # 0.3 K/mm3 (0-0.2); Basophils % 1.7 % (0.1-2.0); Eosinophils # 0.3 K/mm3 (0.0-0.4); Eosinophils % 1.6 % (0.1-12.0); Hematocrit 57.2 % (37.0-47.0); Lymphocytes % 24.6 % (10-50); Mean Corpuscular Hemoglobin 31.8 pg (27.0-31.2); Mean Corpuscular Volume 96.6 fl (81-99); Monocytes # 0.6 K/mm3 (0.1-1.0); Monocytes % 3.7 % (1.7-9.3); Neutrophils # 11.1 K/mm3 (1.8-7.8); Neutrophils % 68.5 % (37.0-80.0); Platelet Count 366 K/mm3 (142-424); Red Blood Count 5.93 M/mm3 (4.20-5.40); Red Cell Distribution Width 12.9 % (11.5-17.5); White Blood Count 16.2 K/mm3 (4.8-10.8)
[2023-09-14 11:05] LABS: Appearance,Urine CLEAR (Clear); Bilirubin,Urine Negative (Negative); Blood, Urine Negative (Negative); Color,Urine YELLOW (Yellow); Glucose,Urine (UA) Negative (Negative); Ketones,Urine Negative (Negative); Leukocyte Esterase,Urine Negative (Negative); Nitrate,Urine Negative (Negative); Protein,Urine Negative (Negative); Urobilinogen,Urine 0.2 EU/dl (0.2)
[2023-09-14 11:15] LABS: Bacteria,Urine Trace /lpf
[2023-09-14 11:19] LABS: MANUAL DIFFERENTIAL MANUAL DIFFERENTIAL (MANUAL DIFF)
[2023-09-14 11:22] LABS: Chloride 109 mmol/L (98-107)
[2023-09-14 11:23] LABS: Potassium 4.2 mmoL/L (3.5-5.1); Sodium 138 mmol/L (136-145)
[2023-09-14 11:25] LABS: Alanine Aminotransferase 34 U/L (12-78); Albumin Level 4.3 g/dl (3.5-5.0); Albumin/Globulin Ratio 1.3 (1.1-1.8); Alkaline Phosphatase 117 U/L (38-126); Anion Gap 11.2 mEq/L (5-15); Aspartate Amino Transferase 26 U/L (14-36); Bilirubin,Total 0.7 mg/dl (0.2-1.3); Blood Urea Nitrogen 12 mg/dl (7-17); Carbon Dioxide 22 mmol/L (22.0-30.0); Estimated Glomerular Filt Rate 122 ml/min (>60); GFR (African American) 148 ML/MIN (>60); Globulin 3.2 g/dL (1.3-3.2); Total Protein,Serum 7.5 g/dl (6.3-8.2)
[2023-09-14 11:26] LABS: Calcium 9.8 mg/dl (8.4-10.2); Cholesterol 228 mg/dl (140-200); Glucose 92 mg/dl (74-100); HDL Cholesterol 46 mg/dl (40-60); Triglycerides 227 mg/dl (30-150); VLDL Cholesterol 45 mg/dL (0-40)
[2023-09-14 11:42] LABS: Hemoglobin 18.9 g/dL (12.2-16.2)
[2023-09-14 11:43] LABS: Direct LDL Cholesterol 124.95 mg/dL (100-129)
[2023-09-14 11:45] LABS: Free T4 (Free Thyroxine) 0.94 ng/dl (0.78-2.19)
[2023-09-14 11:53] LABS: Lymphocytes % 27 % (10-50); Monocytes % 4 % (2-9); Neutrophils % 69 % (42-76); Platelet Estimate Normal; RBC Morphology Normal; Total Cells Counted 100
[2023-09-14 11:58] LABS: Thyroid Stimulating Hormone 3.26 uIU/mL (0.465-4.68)
[2023-09-14 12:27] LABS: Vitamin B12 488 pg/mL (239-931)
[2023-09-14 13:19] LABS: 25-OH Vitamin D, Total 38.4 ng/mL (30-100)
[2023-09-16 13:18] LABS: Peripheral Smear Review Scanned Result
== END 2023-09-14 23:59 ==
PROVIDERS: PCP Nurse Practitioner Family; Visit Provider Nurse Practitioner Family
DX: R53.83 Other fatigue (principal); R00.0 Tachycardia, unspecified; I10 Essential (primary) hypertension; M81.0 Age-related osteoporosis without current pathological fracture; Z13.1 Encounter for screening for diabetes mellitus; Z13.220 Encounter for screening for lipoid disorders; F41.9 Anxiety disorder, unspecified; M54.50 Low back pain, unspecified; G89.29 Other chronic pain; D72.829 Elevated white blood cell count, unspecified; D58.2 Other hemoglobinopathies; Z79.899 Other long term (current) drug therapy; B96.89 Other specified bacterial agents as the cause of diseases classified elsewhere
CPT/HCPCS: 36415; 72100; 80053; 80061; 81001; 82306; 82607; 84156; 84439; 84443; 85007; 85025; 87086

== ENCOUNTER 2023-10-05 14:44 | Outpatient (CLI) | payer MEDICARE, BC, SELFPAY ==
[2023-10-05 14:20] LABS: Basophils # 0.2 K/mm3 (0-0.2); Eosinophils # 0.3 K/mm3 (0.0-0.4); Eosinophils % 2.6 % (0.1-12.0); Hematocrit 52.6 % (37.0-47.0); Hemoglobin 17.2 g/dL (12.2-16.2); Lymphocytes # 3.2 K/mm3 (0.7-4.5); Lymphocytes % 26.7 % (10-50); Mean Corpuscular HGB Conc 32.8 g/dL (31.8-35.4); Mean Corpuscular Hemoglobin 31.2 pg (27.0-31.2); Mean Platelet Volume 8.8 fl (7.4-10.4); Monocytes % 8.1 % (1.7-9.3); Neutrophils # 7.2 K/mm3 (1.8-7.8); Neutrophils % 60.5 % (37.0-80.0); Platelet Count 422 K/mm3 (142-424); Red Blood Count 5.53 M/mm3 (4.20-5.40); Red Cell Distribution Width 13.1 % (11.5-17.5); White Blood Count 11.8 K/mm3 (4.8-10.8)
== END 2023-10-05 23:59 ==
LOC: LAB.DROPOF 14:44
PROVIDERS: PCP Nurse Practitioner Family; Visit Provider Nurse Practitioner Family
DX: I10 Essential (primary) hypertension; R71.8 Other abnormality of red blood cells; D72.829 Elevated white blood cell count, unspecified
CPT/HCPCS: 85025

== ENCOUNTER 2023-11-02 14:58 | Outpatient (CLI) | payer MEDICARE, BC, SELFPAY ==
--- NOTE | 2023-11-02 14:58 | CT_ITS ---
FINAL REPORT TECHNIQUE: Thin section axial images were obtained from the lung apices to the upper abdomen by computed tomography. Reformatted images were obtained and reviewed. This study was performed with techniques to keep radiation doses al low as reasonably achievable (ALARA). Individualized dose reduction techniques using automated exposure control or adjustment of mA and/or kV according to the patient's size were employed. CLINICAL HISTORY: lung cancer screening smoker 1 ppd x 50 years COMPARISON: None FINDINGS: CHEST CT LOW DOSE 69-year-old female, current smoker, [id number] history. CTDI vol (mGy): 2.9 DLP (mGy-cm): 96.38 There is no axillary adenopathy. There is mild mediastinal adenopathy, with a precarinal node measuring up to 18 mm in greatest diameter. The heart is normal in size. Moderate left coronary artery calcifications are present. There is no pericardial or pleural effusion. There is mild emphysema and mild to moderate pulmonary scarring/fibrosis, greatest in the periphery. Several calcified granulomas are identified. Lung window images demonstrate a 4 mm left lower lobe nodule best seen on image #39.. Limited images of the upper abdomen are unremarkable. IMPRESSION: Lung-RADS category 2S, the S designation for the mediastinal adenopathy. Recommend 6-month month follow up chest CT or PET/CT. Reviewed, Interpreted and Dictated by Elvis Kinsey III, MD Transcribed by Luz Mendez Authenticated and . [facility]
== END 2023-11-02 23:59 | disposition home or self-care (01) ==
LOC: RAD 14:58
PROVIDERS: PCP Nurse Practitioner Family; Visit Provider Nurse Practitioner Family
DX: F17.210 Nicotine dependence, cigarettes, uncomplicated (principal); Z12.2 Encounter for screening for malignant neoplasm of respiratory organs
CPT/HCPCS: 71271

== ENCOUNTER 2023-11-16 14:00 | Outpatient (RCR) | payer MEDICARE, BC, SELFPAY ==
--- NOTE | 2023-10-11 14:18 | HMH.PTOPEV ---
PT Outpatient Evaluation Rehab PT Outpatient Evaluation Start: 10/11/23 10:31 Freq: Status: Active Protocol: Document 10/11/23 13:58 KARL (Rec: 10/11/23 14:18 PHOITZEL [id number]) E-signed By Wilber Rai, PT Outpatient Therapy Subjective History Subjective History This is the initial PT eval for Adina Akhtar, 68 yowf who presents with c/o pain in the low back x ~ 10 yrs. SHe reports she was caring for her , who had cancer and last year, and this steadily worsened her symptoms. She reports pain is worse with prolonged standing or driving, but no numbness or tingling noted. SHe had X-ray performed which shows chronic L 5 comp fx, L4 on L5 anteriorlisthesis, and general lumbar spine facet arthropothy. New diagnosis of cancer in past 12 No months? Chief Complaint Pain,Stiff Symptom Type Ache Symptoms Relieved By Nothing Symptoms Aggravated By Sitting,Standing Prior Functional Limitations None Current Functional Limitations Standing,Sitting Symptom Description Intermittent,Activity Dependent Level of pain today (0-10) 0 Pain scale - at its worst (0-10) 8 Lumbopelvic Eval Palapation tenderness bilateral lumbar spinal tenderness Yes Lumbar/Sacral Palpation Findings Tenderness Lumbar/Sacral Palpation Overall Comment B SI jt Accessory Movement L-spine Vertebrae Accessory Movements Central P/A Victor that Elicit Symptoms L2 bilateral L3 bilateral L4 bilateral L5 bilateral S1 bilateral Range of Motion Lumbar Spine Active Flexion Range of 0-55 Motion (degrees) Lumbar Spine Active Extension Range of 0-15 Motion (degrees) Left Lumbar Spine Lateral Flexion Active 0-15 Range of Motion (degrees) Right Lumbar Spine Lateral Flexion 0-15 Active Range of Motion (degrees) Manual Muscle Test Bilateral Knee Extension Strength Grade 4 Good Knee Flexion Strength Grade 4 Good Hip Flexion Strength Grade 3+ Fair+ Hip Abduction Strength Grade 3+ Fair+ Hip Adduction Strength Grade 4 Good Hip Extension Strength Grade 4 Good Special Tests Hip Scouring (Quadrant) Test Negative Left,Negative Right Hip Roberto (ARI) Test Negative Left,Negative Right Hip Bowstring (Cram) Test Positive Left,Positive Right Sciatic Nerve Tension Test Negative Right,Positive Left Unilateral Straight Leg Raise (Lasegue) Negative Left,Negative Right Test Oswestry Index Section 1 Pain Intensity The pain comes and goes and is severe Section 2 Personal Care (Washing,Dresing) change my way of washing or dressing in order to avoid pain Section 3 Lifting Pain prevents me from lifting weights off the floor Section 4 Walking I cannot walk more than 1/4 mile without increasing pain Section 5 Sitting Pain prevents me from sitting for more than one hour Section 6 Standing I cannot stand more than 1 hour without increasing pain Section 7 Sleeping Because of my pain, my normal night's sleep is less than 6 hours sleep Section 8 Social Life Pain has no significant effect on my social life apart from limiting Section 9 Traveling I get extra pain while traveling, but it does not compel me to seek al Section 10 Changing Degreee of Pain My pain is gradually getting worse Score and Risk Level Oswestry Sc 24 Oswestry Risk Level Moderate Disability Outpatient Therapy Assessment Impairments Problems/Impairmments Palpation Tenderness,Impaired Range of Motion,Impaired Strength,Impaired Endurance, Impaired Walking,Impaired Standing,Impaired Sitting, Impaired Driving,Impaired Household Care,Impaired Work Activities,Subjective C/O Pain ,Impaired Self Care/Self Management Prognosis Rehab Potential Good Clinical Impression Consistent with Diagnosis Yes Short Term Goals Number of Weeks 2 Decreased Palpation Tenderness Yes: 1/$ B lumbar paraspinals Increase Range of Motion Yes: Lumbar AROM by 5 deg all dir Increase Strength Yes: B LE 4/5 throughout Improve Oswestry Score Yes: 20 or below Decrease Subjective C/O Pain Yes: 610 at worst Patient to be Ind w/ HEP Yes [facility] Goals Number of Weeks 4 Decreased Palpation Tenderness Yes: 0/4 B lumbar paraspinals Increase Range of Motion Yes: Lumbar AROM by 10 deg all dir Increase Strength Yes: B LE 5/5 throughout Increase Ability to Stand Yes: > 30 min without pain Improve Oswestry Score Yes: 16 or below Decrease Subjective C/O Pain Yes: /10 at worst Patient to be Ind w/ Advanced HEP Yes Outpatient Therapy Plan of Care Treatment Plan May Include Therapeutic Exercise Including Home Yes Exercise Program Manual Therapy Techniques Yes Neuromuscular Re-education Yes Therapeutic Activities to Return to Yes Previous Functional/Work Level Gait Training Yes ADL/Self Care Education Yes Dry Needling Yes Thermal Modalities Yes Electrical Stimulation Yes Ultrasound/Phonophoresis Yes Iontophoresis Yes Orthotics/Bracing/Splinting Yes Massage Yes Eval/Re-Eval Yes Frequency Times per week 2 Duration Number of Weeks 4 Addendums This patient is a candidate for social No or vocational rehab? Patient/Guardian verbally acknowledges Yes understanding of treatment program and consents to further treatment? Patient/Guardian verbally acknowledges Yes understanding of diagnosis, prognosis and goals for treatment? Eval Complexity PT Charges 42645 - High Complexity Shoulder/Elbow Eval Shoulder Objective Measurements Elbow Objective Measurements PHYSICIAN CERTIFICATION: I certify the specified therapy services for Adina Akhtar are required, authorized, and reviewed every 30 days.
--- NOTE | 2023-11-16 15:14 | HMH.RHREAS ---
Rehab Reassessment Rehab OP Re-assessment Start: 10/11/23 10:31 Freq: Status: Active Protocol: Document 11/16/23 15:07 PHORSRIKANTH (Rec: 11/16/23 15:13 PHORNE Laptop) E-signed By Wilber Rai, PT Oswestry Index Section 1 Pain Intensity The pain comes and goes and is moderate Section 2 Personal Care (Washing,Dresing) my way of washing or dressing even though it causes some pain Section 3 Lifting lifting heavy weights off the floor, but I can manage light to medium Section 4 Walking I cannot walk more than one mile wihtout increasing pain Section 5 Sitting Pain prevents me from sitting for more than one hour Section 6 Standing I cannot stand more than 1 hour without increasing pain Section 7 Sleeping I get pain in bed, but it does not prevent me from sleeping well Section 8 Social Life My social life is normal and gives me no extra pain Section 9 Traveling I get extra pain while traveling, but it does not compel me to seek al Section 10 Changing Degreee of Pain My pain fluctuates, but overall is definitely getting better Score and Risk Level Oswestry Sc 17 Oswestry Risk Level Moderate Disability Rehab Re-assessment Subjective Subjective Pt reports, I am actually doing quite a bit better now. I try to remember to do my exercises, because they really help me out and make me feel better. Pain at worst 5/10 in low back, usually in the evening. Objective Objective Notes Lumbar AROM (in deg): FLEX= 0- 65, EXT= 0-20, R SB= 0-25, L SB= 0-25. Pain: 0/10 currently, 5/10 at worst in low back. MMT: B LE HIP FLEX 4+/5, HIP ABD 4+/5, KNEE FLEX 5/5, KNEE EXT 5/5. TTP: 0/4 lumbar paraspinals this date. Oswestry: 17 today vs 24 on IE . Assessment Progress Assessment Progressing as Expected Assessment Notes Pt has shown significant overall improvement in lumbar AROM and mobility with transfers and gait. She continues to have some pain, but this is decreasing steadily. She continues to need skilled therapy services to return to PLOF. Patient goals met ST/5 LT/7 Goals Not Met STG: none LT Plan Plan Continue per initial POC. Frequency of Therapy 1 x/wk Duration of therapy 4 wks Time and Billing Re-Eval Time 13 Re-Eval Billing Units 0 PHYSICIAN CERTIFICATION: I certify the specified therapy services for Adina Akhtar are required, authorized, and reviewed every 30 days.
== END 2023-11-16 15:00 | disposition home or self-care (01) ==
LOC: PT 14:00
PROVIDERS: Visit Provider Nurse Practitioner Family
DX: M54.50 Low back pain, unspecified (principal)
CPT/HCPCS: 97010; 97014; 97110; 97163; 97164; 97530; G0283

== ENCOUNTER → 2023-12-22 10:17 | Outpatient (CLI) | payer MEDICARE, BC, SELFPAY | LOC: SL 10:19 | PROVIDERS: PCP Nurse Practitioner Family; Visit Provider Nurse Practitioner Family | DX: G47.30 Sleep apnea, unspecified (principal); G47.36 Sleep related hypoventilation in conditions classified elsewhere; R06.83 Snoring; R53.83 Other fatigue | CPT/HCPCS: G0399 ==

== ENCOUNTER 2024-01-14 12:00 | Outpatient (CLI) | payer MEDICARE, BC, SELFPAY | END 2024-01-14 23:59 | disposition home or self-care (01) | PROVIDERS: PCP Nurse Practitioner Family; Visit Provider Specialist | DX: G47.30 Sleep apnea, unspecified (principal); G47.34 Idiopathic sleep related nonobstructive alveolar hypoventilation | CPT/HCPCS: 94762 ==

== ENCOUNTER 2024-01-25 10:10 | Outpatient (CLI) | payer MEDICARE, BC, SELFPAY ==
--- NOTE | 2024-01-25 10:14 | XR_ITS ---
FINAL REPORT TECHNIQUE: Chest PA & Lateral CLINICAL HISTORY: COPD productive cough, shortness of breath, emphysema COMPARISON: 07/17/2020 FINDINGS: 2 views of the chest were performed. The heart size is normal. The mediastinum is within normal limits. There is no acute cardiopulmonary process. The lungs are underinflated. There are no pleural effusions. There is no pneumothorax. The bony thorax appears intact. IMPRESSION: No acute cardiopulmonary process. Reviewed, Interpreted and Dictated by Alexy Rice MD Transcribed by Ivett Borrero Authenticated and [facility]
[2024-01-25 11:25] VITALS: PULSE 73
[2024-01-25] MEDS: ALBUTEROL 0.083% 2.5 MG/3 ML NEB IH (11:25)
== END 2024-01-25 23:59 | disposition home or self-care (01) ==
LOC: RT 10:11
PROVIDERS: PCP Nurse Practitioner Family; Visit Provider Specialist
DX: G47.34 Idiopathic sleep related nonobstructive alveolar hypoventilation (principal); J44.9 Chronic obstructive pulmonary disease, unspecified; G47.30 Sleep apnea, unspecified; R06.83 Snoring; R53.83 Other fatigue; I10 Essential (primary) hypertension; R00.0 Tachycardia, unspecified; F17.210 Nicotine dependence, cigarettes, uncomplicated
CPT/HCPCS: 71046; 94060; 94618; 94640; 94726; 94729; J7613

== ENCOUNTER 2024-01-25 11:48 | Emergency (ER) | payer MEDICARE, BC, SELFPAY ==
[2024-01-25] VITALS (8 sets, daily range): BP systolic 133–161; BP diastolic 79–95; PULSE 68–76; RESP 16; TEMP 36.6; O2SAT 87–94; BMI 31.2
--- NOTE | 2024-01-25 12:13 | HMH.EDGENADL ---
Discharge Plan Disposition Patient Disposition: Home, Self-Care Condition: Good Prescriptions Prescriptions: No Action albuterol sulfate [Ventolin HFA] 90 mcg/actuation HFA aerosol inhaler 2 puff INHALATION Q4-6H PRN (Reason: shortness of breath or wheezing) Qty: 6.7 3RF Rx Instructions: administer with spacer docusate sodium [Colace] 100 mg capsule 100 mg PO DAILY PRN buspirone 10 mg tablet 10 mg PO TID Qty: 270 3RF tizanidine 2 mg tablet 2 mg PO TID PRN (Reason: muscle spasticity) Qty: 90 2RF nicotine 21 mg/24 hr patch 24 hour 1 patch transdermal Q24H Qty: 28 0RF cetirizine [Zyrtec] 10 mg tablet 10 mg PO DAILY Qty: 90 3RF guaifenesin 600 mg tablet extended release 12hr 600 mg PO Q12H PRN (Reason: congestion) Qty: 180 1RF Trelegy Ellipta 100-62.5-25 mcg blister with device 1 inh inhalation DAILY Qty: 60 2RF oxybutynin chloride 10 mg tablet extended release 24hr 10 mg PO DAILY Qty: 90 3RF cholecalciferol (vitamin D3) 50 mcg (2,000 unit) capsule 50 mcg PO DAILY carvedilol 6.25 mg tablet 6.25 mg PO BID Qty: 180 3RF Rx Instructions: must administer with a meal/food sertraline 50 mg tablet 50 mg PO QHS Qty: 90 3RF Referrals Follow up/Referrals: Bozena Washburn APRN [Primary Care Provider] - See instructions Omar Fernandez MD [Staff Physician] - See instructions Activity Restrictions/Add. Instructions Additional Instructions/Restrictions: You were evaluated in the emergency department today. Please follow-up with cardiology at 2 PM as scheduled. We are prescribing you home oxygen to wear. You may wear 2 L nasal cannula at rest and up to 4 L while walking as needed. Please follow-up closely with your civil rights attorney as well as your retail associate. Please also follow-up with your primary care provider. Return to the emergency department for any new or worsening symptoms. Clinical Impressions Clinical Impression: Hypoxia, Abnormal echocardiogram Instructions Patient Instructions: Home Oxygen Therapy, DI for Hypoxia Print Language Print Language: Cook Islander Discharge ED Provider: Vianney Corona General Adult HPI <Mikalah Stephens, MD - Last Filed: 01/25/24 15:07> General Chief complaint: Recheck/Abnormal Lab/Rx Stated complaint: low oxygen Time Seen by Provider: 01/25/24 11:58 Mode of Arrival: Ambulatory Source of Information: Patient Limitations: No Limitations Description of Symptoms (Recalled from ER Triage Doc. by RN): Patient reports that while doing a PFT they told her that her oxygen levels were in the 80's. States they called Dr. Garcia who suggested she come to the ER for evaluation. States that at rest and at home she normally sats in the upper 80's. Denies any shortness of breath or any other complaints at this time. States she has a history of COPD and emphysema. History of Present Illness HPI narrative: 68-year-old female presents to the ER for concerns of hypoxia into the 80s during a pulmonary function test. Patient states that has been her normal for months and the PFT was in anticipation of follow-up with pulmonology coming up. Patient states she has been in the mid 80s at home at rest. She states she only feels short of breath when she is active. She has no chest pain, no peripheral swelling, denies any other symptoms of being ill or other associated symptoms. Related Data Home Medications ?Medication ?Instructions ?Recorded ?Confirmed docusate sodium 100 mg capsule 100 mg PO DAILY PRN 03/08/23 01/14/24 (Colace) cholecalciferol (vitamin D3) 50 50 mcg PO DAILY 01/14/24 01/14/24 mcg (2,000 unit) capsule Previous Rx's ?Medication ?Instructions ?Recorded albuterol sulfate 90 mcg/actuation 2 puff inhalation Q4-6H PRN 01/20/23 aerosol inhaler (Ventolin HFA) shortness of breath or wheezing #6.7 grams oxybutynin chloride 10 mg 10 mg PO DAILY #90 tabs 11/11/23 tablet,extended release 24 hr carvedilol 6.25 mg tablet 6.25 mg PO BID #180 tabs 12/13/23 sertraline 50 mg tablet 50 mg PO QHS #90 tabs 12/13/23 buspirone 10 mg tablet 10 mg PO TID #270 tabs 01/10/24 cetirizine 10 mg tablet (Zyrtec) 10 mg PO DAILY #90 tabs 01/10/24 fluticasone fur. 100 mcg-umeclid 1 inh inhalation DAILY #60 ea 01/10/24 62.5 mcg-vilant 25 mcg inhalat.powder (Trelegy Ellipta) guaifenesin 600 mg tablet, 600 mg PO Q12H PRN congestion #180 01/10/24 extended release 12 hr tabs nicotine 21 mg/24 hr daily 1 patch transdermal Q24H #28 ea 01/10/24 transdermal patch tizanidine 2 mg tablet 2 mg PO TID PRN muscle spasticity 01/10/24 #90 tabs Allergies Allergy/AdvReac Type Severity Reaction Status Date / Time codeine Allergy Mild Verified 01/13/24 16:21 PFSH <Sally Stephens MD - Last Filed: 01/25/24 15:07> [facility] Disclaimer: The information contained in this section may have been updated after the patient was seen, as this information can be updated by other users. Medical History Fracture of toe Contusion of right forearm Right forearm pain Establishing care with new doctor, encounter for Shingles Prolapse of uterus Strain of mid-back Dermatitis Urinary tract infection Urinary problem Sinusitis Acute bronchitis UTI (urinary tract infection) Immunization due Allergic bronchitis URI (upper respiratory infection) Surgical History Hx of cholecystectomy History of tubal ligation Family History (Updated 01/14/24 @ 11:02 by Sharon Acosta) Mother Parkinson disease Dementia Father Stroke Brother Cancer Brother Crohn's disease Social History (Updated 01/14/24 @ 11:04 by Sharon Acosta) Smoking Status: Current every day smoker tobacco type: cigarettes packs per day: 1 second hand exposure: Yes alcohol intake: never substance use type: denies use current occupational status: employed Travel in the last 8 weeks: None household members: family housing: house marital status: number of children: 2 number of grandchildren: 4 <Sally Stephens MD - Last Filed: 01/25/24 15:07> ROS Obtained: Yes All systems reviewed & no additional complaints except as documented Physical Exam <Sally Stephens MD - Last Filed: 01/25/24 15:07> General General appearance: alert and in no apparent distress Head Head exam: atraumatic and normocephalic Eye Eye exam: Present PERRL and EOMI ENT ENT exam: Present mucous membranes moist Neck Neck exam: Present normal inspection and full ROM Chest Chest inspection: Present symmetric chest wall rise Respiratory Respiratory exam: Present normal lung sounds bilaterally and other (good air movement throughout); Absent respiratory distress, wheezes or stridor Cardiovascular Cardiovascular exam: Present regular rate and normal rhythm Abdominal Exam Abdominal exam: Present soft; Absent distention or tenderness Extremities Exam Extremities exam: Present full ROM; Absent edema Neurological Exam Neurological exam: Present alert and oriented X3; Absent motor sensory deficit Psychiatric Psychiatric exam: Present normal affect and normal mood Skin Skin exam: Present warm and dry Medical Decision Making <Sally Stephens MD - Last Filed: 01/25/24 15:07> Medical Records Medical records reviewed: Yes I reviewed the patient's medical records. MR Comment: Neuro: severe nocturnal hypoxemia, sleep apnea, nonobstructive hypoventilation; patient has history of pulmonary nodule being followed by family practice. Jay Inquiry Pt receiving controlled substance: No Vital Signs: 01/25/24 11:49 01/25/24 11:53 01/25/24 12:00 Temperature 97.9 F Temperature Source Oral Pulse Rate 76 72 Pulse Rate [Radial] 74 Respiratory Rate 16 Blood Pressure 155/92 H 143/95 H Blood Pressure [Right Arm] 155/92 H Blood Pressure Mean [Right Arm] 113 Blood Pressure Source [Right Arm] Automatic Cuff Blood Pressure Position [Right Arm] Sitting 02 Sat by Pulse Oximetry 91 L 87 L 92 L Oxygen Delivery Method Room Air Room Air Room Air Oxygen Flow Rate (LPM) 01/25/24 12:31 01/25/24 13:00 01/25/24 13:30 Temperature Temperature Source Pulse Rate 74 68 70 Pulse Rate [Radial] Respiratory Rate Blood Pressure 161/91 H 152/89 H 151/91 H Blood Pressure [Right Arm] Blood Pressure Mean [Right Arm] Blood Pressure Source [Right Arm] Blood Pressure Position [Right Arm] 02 Sat by Pulse Oximetry 93 L 94 L 91 L Oxygen Delivery Method Nasal Cannula Nasal Cannula Nasal Cannula Oxygen Flow Rate (LPM) 2 2 2 01/25/24 13:35 Temperature Temperature Source Pulse Rate 72 Pulse Rate [Radial] Respiratory Rate Blood Pressure 133/79 Blood Pressure [Right Arm] Blood Pressure Mean [Right Arm] Blood Pressure Source [Right Arm] Blood Pressure Position [Right Arm] 02 Sat by Pulse Oximetry 90 L Oxygen Delivery Method Oxygen Flow Rate (LPM) Lab Data Lab Results 01/25/24 12:15: WBC 8.7, RBC 4.90, Hgb 17.4 H, Hct 46.3, MCV 94.6, MCH 35.6 H, MCHC 37.6 H, RDW 14.3, Plt Count 275, MPV 7.6, Neut % (Auto) 58.2, Lymph % (Auto) 27.6, Isabella % (Auto) 6.3, Eos % (Auto) 6.2, Baso % (Auto) 1.7, Neut # (Auto) 5.1, Lymph # (Auto) 2.4, Isabella # (Auto) 0.6, Eos # (Auto) 0.6 H, Baso # (Auto) 0.2, PT 10.5, INR 0.93, D-Dimer 0.30, Sodium 139, Potassium 4.1, Chloride 112 H, Carbon Dioxide 22, Anion Gap 9.1, BUN 13, Creatinine 0.60, Estimated Creat Clear 60, Estimated GFR 99, Est GFR ( Amer) 120, Glucose 101 H, Calcium 9.0, Total Bilirubin 0.8, AST 25, ALT 25, Alkaline Phosphatase 89, Troponin I < 0.01, NT-Pro-B Natriuret Pep 88.3, Total Protein 7.4, Albumin 4.2, Globulin 3.2, Albumin/Globulin Ratio 1.3 01/25/24 12:21: VBG pH 7.41, VBG pCO2 32.8 L, VBG pO2 64.8 H, VBG HCO3 20.1 L, VBG Total CO2 21.1 L, VBG O2 Saturation 94.4 H, VBG Base Excess -4.6 L, VBG Lactic Acid 1.8 01/25/24 12:15 01/25/24 12:15 Orders (Tests/Meds): ED MEDICATIONS Generic Name Dose Route Start Last Admin Trade Name Freq PRN Reason Stop Dose Admin Sodium Chloride 10 ml 01/25/24 12:23 Sodium Chloride 0.9% 10ml Flush Syringe IV 02/24/24 12:22 NEEDED PRN Maintain IV Site Discontinued Medications Generic Name Dose Route Start Last Admin Trade Name Freq PRN Reason Stop Dose Admin Iopamidol 75 ml 01/25/24 15:43 01/25/24 15:43 Iopamidol-370 (76%);100ml Bottle IV 01/25/24 15:44 75 ml ONCE ONE Administration Sodium Chloride 10 ml 01/25/24 15:43 01/25/24 15:43 Sodium Chloride 0.9% 10ml Syr (Rad Only) IV 01/25/24 15:44 10 ml ONCE ONE Administration ORDERS Category Date Time Status CT abdomen pelvis w con Stat Cat Scan 01/25/24 15:21 Taken BNP [NT Pro Brain Natriuretic Pep.] Stat Lab 01/25/24 12:15 Completed CBC w/Auto Diff [Complete Blood Count Auto Diff] Stat Lab 01/25/24 12:15 Completed CMP [Comprehensive Metabolic Panel] Stat Lab 01/25/24 12:15 Completed D-Dimer Stat Lab 01/25/24 12:15 Completed PT INR [Prothrombin Time INR] Stat Lab 01/25/24 12:15 Completed Trop I [Troponin I] Stat Lab 01/25/24 12:15 Completed Troponin I Q3H Lab 01/25/24 15:15 Ordered Troponin I Q3H Lab 01/25/24 18:15 Ordered VBG [Venous Blood Gas] Stat RT 01/25/24 12:21 Completed CA echo doppler complete Routine Y 01/25/24 14:14 Completed Medical Decision Narrative: In summary, this 68-year-old female presents to the emergency department today with concerns of hypoxia, referred from pulmonary function test. On initial evaluation patient is hemodynamically stable, when I walked in the room she was 84% on room air playing on her phone. She stated at that time she had no chest pain or sensation of shortness of breath and reports that she is frequently running in the mid 80s at home at rest. Lungs are clear to auscultation bilaterally with no wheezing, good air movement. Differential diagnosis includes but is not limited to hypoventilation, nocturnal hypoxemia, sleep apnea, PE, pneumonia, pneumothorax. Based on these concerns, I ordered cardiac workup, D-dimer, reviewed chest x-ray from earlier today which is reassuring against acute intrathoracic abnormality on my personal interpretation. Patient was started on 2 L nasal cannula due to her low oxygen status at rest. When she started talking to me before oxygen was started, she increased to 90%, however her significant hypoxemia without oxygen at rest is very concerning. ECG personally interpreted demonstrates normal sinus rhythm, rate 75, normal axis, normal MO, normal QTc, no STEMI. Labs personally reviewed demonstrate no leukocytosis, no anemia, platelets normal, PT/INR and D-dimer normal, D-dimer is reassuring against PE. VBG with normal pH, no hypercarbia, lactic normal at 1.8, no actionable abnormalities on CMP, initial troponin undetectably low, further reassurance against acute cardiac abnormality. BNP normal. No concern for fluid overload. Ambulatory O2 74% on room air. On further investigation, respiratory therapy has already performed a 6-minute walk test on this patient recommending 4 L nasal cannula. She is saturating well on 2 L nasal cannula at rest. I discussed this case with Dr. Gonzalez including her significant hypoxemia both at rest and ambulatory. I described the patient's reassuring lab workup and chest x-ray as well as her feeling like she is at baseline. He stated he would like to have cardiology evaluate the patient and do an echo bubble study. He believes based off her previous imaging and current workup that she only has mild COPD and that her hypoxemia is disproportionate to her identified pulmonary problems, so he would like a cardiology evaluation with echo and bubble study. I consulted cardiology and spoke with Lorenzo on the phone. She came to evaluate the patient and was able to get an echo with bubble study in the ER. This is pending at this time. Final recommendations from cardiology are also pending. Patient handed off to Dr. Corona at physician shift change pending echo/bubble study and cardiology recommendations. <Vianney Corona, DO - Last Filed: 01/25/24 16:15> Vital Signs: 01/25/24 11:49 01/25/24 11:53 01/25/24 12:00 Temperature 97.9 F Temperature Source Oral Pulse Rate 76 72 Pulse Rate [Radial] 74 Respiratory Rate 16 Blood Pressure 155/92 H 143/95 H Blood Pressure [Right Arm] 155/92 H Blood Pressure Mean [Right Arm] 113 Blood Pressure Source [Right Arm] Automatic Cuff Blood Pressure Position [Right Arm] Sitting 02 Sat by Pulse Oximetry 91 L 87 L 92 L Oxygen Delivery Method Room Air Room Air Room Air Oxygen Flow Rate (LPM) 01/25/24 12:31 01/25/24 13:00 01/25/24 13:30 Temperature Temperature Source Pulse Rate 74 68 70 Pulse Rate [Radial] Respiratory Rate Blood Pressure 161/91 H 152/89 H 151/91 H Blood Pressure [Right Arm] Blood Pressure Mean [Right Arm] Blood Pressure Source [Right Arm] Blood Pressure Position [Right Arm] 02 Sat by Pulse Oximetry 93 L 94 L 91 L Oxygen Delivery Method Nasal Cannula Nasal Cannula Nasal Cannula Oxygen Flow Rate (LPM) 2 2 2 01/25/24 13:35 Temperature Temperature Source Pulse Rate 72 Pulse Rate [Radial] Respiratory Rate Blood Pressure 133/79 Blood Pressure [Right Arm] Blood Pressure Mean [Right Arm] Blood Pressure Source [Right Arm] Blood Pressure Position [Right Arm] 02 Sat by Pulse Oximetry 90 L Oxygen Delivery Method Oxygen Flow Rate (LPM) Lab Data Lab Results 01/25/24 12:15: WBC 8.7, RBC 4.90, Hgb 17.4 H, Hct 46.3, MCV 94.6, MCH 35.6 H, MCHC 37.6 H, RDW 14.3, Plt Count 275, MPV 7.6, Neut % (Auto) 58.2, Lymph % (Auto) 27.6, Isabella % (Auto) 6.3, Eos % (Auto) 6.2, Baso % (Auto) 1.7, Neut # (Auto) 5.1, Lymph # (Auto) 2.4, Isabella # (Auto) 0.6, Eos # (Auto) 0.6 H, Baso # (Auto) 0.2, PT 10.5, INR 0.93, D-Dimer 0.30, Sodium 139, Potassium 4.1, Chloride 112 H, Carbon Dioxide 22, Anion Gap 9.1, BUN 13, Creatinine 0.60, Estimated Creat Clear 60, Estimated GFR 99, Est GFR ( Amer) 120, Glucose 101 H, Calcium 9.0, Total Bilirubin 0.8, AST 25, ALT 25, Alkaline Phosphatase 89, Troponin I < 0.01, NT-Pro-B Natriuret Pep 88.3, Total Protein 7.4, Albumin 4.2, Globulin 3.2, Albumin/Globulin Ratio 1.3 01/25/24 12:21: VBG pH 7.41, VBG pCO2 32.8 L, VBG pO2 64.8 H, VBG HCO3 20.1 L, VBG Total CO2 21.1 L, VBG O2 Saturation 94.4 H, VBG Base Excess -4.6 L, VBG Lactic Acid 1.8 Orders (Tests/Meds): ED MEDICATIONS Generic Name Dose Route Start Last Admin Trade Name Freq PRN Reason Stop Dose Admin Sodium Chloride 10 ml 01/25/24 12:23 Sodium Chloride 0.9% 10ml Flush Syringe IV 02/24/24 12:22 NEEDED PRN Maintain IV Site Discontinued Medications Generic Name Dose Route Start Last Admin Trade Name Freq PRN Reason Stop Dose Admin Iopamidol 75 ml 01/25/24 15:43 01/25/24 15:43 Iopamidol-370 (76%);100ml Bottle IV 01/25/24 15:44 75 ml ONCE ONE Administration Sodium Chloride 10 ml 01/25/24 15:43 01/25/24 15:43 Sodium Chloride 0.9% 10ml Syr (Rad Only) IV 01/25/24 15:44 10 ml ONCE ONE Administration ORDERS Category Date Time Status CT abdomen pelvis w con Stat Cat Scan 01/25/24 15:21 Taken BNP [NT Pro Brain Natriuretic Pep.] Stat Lab 01/25/24 12:15 Completed CBC w/Auto Diff [Complete Blood Count Auto Diff] Stat Lab 01/25/24 12:15 Completed CMP [Comprehensive Metabolic Panel] Stat Lab 01/25/24 12:15 Completed D-Dimer Stat Lab 01/25/24 12:15 Completed PT INR [Prothrombin Time INR] Stat Lab 01/25/24 12:15 Completed Trop I [Troponin I] Stat Lab 01/25/24 12:15 Completed Troponin I Q3H Lab 01/25/24 15:15 Ordered Troponin I Q3H Lab 01/25/24 18:15 Ordered VBG [Venous Blood Gas] Stat RT 01/25/24 12:21 Completed CA echo doppler complete Routine Y 01/25/24 14:14 Completed Medical Decision Narrative: In summary, this 68-year-old female presents to the emergency department today with concerns of hypoxia, referred from pulmonary function test. On initial evaluation patient is hemodynamically stable, when I walked in the room she was 84% on room air playing on her phone. She stated at that time she had no chest pain or sensation of shortness of breath and reports that she is frequently running in the mid 80s at home at rest. Lungs are clear to auscultation bilaterally with no wheezing, good air movement. Differential diagnosis includes but is not limited to hypoventilation, nocturnal hypoxemia, sleep apnea, PE, pneumonia, pneumothorax. Based on these concerns, I ordered cardiac workup, D-dimer, reviewed chest x-ray from earlier today which is reassuring against acute intrathoracic abnormality on my personal interpretation. Patient was started on 2 L nasal cannula due to her low oxygen status at rest. When she started talking to me before oxygen was started, she increased to 90%, however her significant hypoxemia without oxygen at rest is very concerning. ECG personally interpreted demonstrates normal sinus rhythm, rate 75, normal axis, normal MO, normal QTc, no STEMI. Labs personally reviewed demonstrate no leukocytosis, no anemia, platelets normal, PT/INR and D-dimer normal, D-dimer is reassuring against PE. VBG with normal pH, no hypercarbia, lactic normal at 1.8, no actionable abnormalities on CMP, initial troponin undetectably low, further reassurance against acute cardiac abnormality. BNP normal. No concern for fluid overload. Ambulatory O2 74% on room air. On further investigation, respiratory therapy has already performed a 6-minute walk test on this patient recommending 4 L nasal cannula. She is saturating well on 2 L nasal cannula at rest. I discussed this case with Dr. Gonzalez including her significant hypoxemia both at rest and ambulatory. I described the patient's reassuring lab workup and chest x-ray as well as her feeling like she is at baseline. He stated he would like to have cardiology evaluate the patient and do an echo bubble study. He believes based off her previous imaging and current workup that she only has mild COPD and that her hypoxemia is disproportionate to her identified pulmonary problems, so he would like a cardiology evaluation with echo and bubble study. I consulted cardiology and spoke with Lorenzo on the phone. She came to evaluate the patient and was able to get an echo with bubble study in the ER. This is pending at this time. Final recommendations from cardiology are also pending. Patient handed off to Dr. Corona at physician shift change pending echo/bubble study and cardiology recommendations. DO Cj: Cardiology evaluated the patient and recommended outpatient follow-up on . Patient's civil rights attorney is in agreement with this and states that he will see her as an outpatient as well. Patient was prescribed home O2 given her hypoxia here in the emergency department. She is requiring nasal cannula to maintain O2 saturation greater than 90%. Please see charted documentation above. Once patient received home oxygen, patient was deemed to be appropriate for discharge home. Strict return precautions given as well as instructions for close outpatient follow-up Critical Care <Sally Stephens MD - Last Filed: 01/25/24 15:07> Critical Care Time Critical Care Time: No
--- NOTE | 2024-01-25 12:20 | ECG_ITS ---
APPROVED REPORT Exam: Resting ECG HR:75 bpm ECG Measurements Heart Rate 75 AXES WV 172 P 62 QRSd 86 QRS 90 QT 396 T 51 QTc 425 Conclusion SINUS RHYTHM LOW QRS VOLTAGE IN PRECORDIAL LEADS [QRS DEFLECTION < 1.0 mV IN CHEST LEADS] POSSIBLE RIGHT VENTRICULAR CONDUCTION DELAY [RSR (QR) IN V1/V2] Electronically signed by : RASHARD SHAH, 01/26/2024 07:32:35
--- NOTE | 2024-01-25 12:22 | PC.NURSE ---
Called respiratory and s/w Nuzhat, to let her know of VBG and blood just sent to the Lab.
[2024-01-25 12:27] LABS: Lactate Venous 1.8 mmol/L (0.4-2.0); VBG Base Excess -4.6 mmol/L (-2.4-2.3); VBG HCO3 20.1 mmol/L (23-30); VBG Oxygen Saturation 94.4 % (50-70); VBG PCO2 32.8 mmol/L (35-51); VBG PH 7.41 mmol/L (7.31-7.41); VBG PO2 64.8 mmol/L (28-40); VBG Total CO2 21.1 mmol/L (23-27)
--- NOTE | 2024-01-25 12:28 | PC.NURSE ---
AT REST PTS RA O2 SAT 84% AMBULATORY RA O2 SAT 74% 2L NC PLACED ON PT, TOLERATING WELL WITH SATS 91%.
[2024-01-25 12:33] LABS: Basophils # 0.2 K/mm3 (0-0.2); Basophils % 1.7 % (0.1-2.0); Eosinophils # 0.6 K/mm3 (0.0-0.4); Eosinophils % 6.2 % (0.1-12.0); Hematocrit 46.3 % (37.0-47.0); Hemoglobin 17.4 g/dL (12.2-16.2); Lymphocytes # 2.4 K/mm3 (0.7-4.5); Lymphocytes % 27.6 % (10-50); Mean Corpuscular HGB Conc 37.6 g/dL (31.8-35.4); Mean Corpuscular Hemoglobin 35.6 pg (27.0-31.2); Mean Corpuscular Volume 94.6 fl (81-99); Mean Platelet Volume 7.6 fl (7.4-10.4); Monocytes # 0.6 K/mm3 (0.1-1.0); Monocytes % 6.3 % (1.7-9.3); Neutrophils # 5.1 K/mm3 (1.8-7.8); Neutrophils % 58.2 % (37.0-80.0); Platelet Count 275 K/mm3 (142-424); Red Cell Distribution Width 14.3 % (11.5-17.5); White Blood Count 8.7 K/mm3 (4.8-10.8)
[2024-01-25 12:34] LABS: Albumin Level 4.2 g/dl (3.5-5.0); Chloride 112 mmol/L (98-107); Potassium 4.1 mmoL/L (3.5-5.1); Sodium 139 mmol/L (136-145)
[2024-01-25 12:36] LABS: Blood Urea Nitrogen 13 mg/dl (7-17); Creatinine Clearance Estimated 60 mL/min (50-200); Estimated Glomerular Filt Rate 99 ml/min (>60); GFR (African American) 120 ML/MIN (>60)
[2024-01-25 12:37] LABS: Alanine Aminotransferase 25 U/L (12-78); Albumin/Globulin Ratio 1.3 (1.1-1.8); Alkaline Phosphatase 89 U/L (38-126); Anion Gap 9.1 mEq/L (5-15); Aspartate Amino Transferase 25 U/L (14-36); Bilirubin,Total 0.8 mg/dl (0.2-1.3); Carbon Dioxide 22 mmol/L (22.0-30.0); Globulin 3.2 g/dL (1.3-3.2); Glucose 101 mg/dl (74-100); Total Protein,Serum 7.4 g/dl (6.3-8.2)
[2024-01-25 12:38] LABS: INR 0.93 (0.9-1.1); Prothrombin Time 10.5 seconds (10.1-12.5)
[2024-01-25 13:02] LABS: Troponin I < 0.01 ng/ml (0.00-0.034)
--- NOTE | 2024-01-25 13:42 | PC.NURSE ---
Dr. Stephens s/w Dr. Gonzalez regarding pt. He would like a 6 min walk test on O2. I called [facility] and they report she has already had this test completed and results are 4lpm. Nuzhat is going to confirm the result and call ER back.
--- NOTE | 2024-01-25 13:48 | PC.NURSE ---
speaking with [email or web address]
--- NOTE | 2024-01-25 13:54 | PC.NURSE ---
called cardiology office for Cathy to speak with stefano palomares
--- NOTE | 2024-01-25 13:54 | PC.NURSE ---
speaking with justyna
--- NOTE | 2024-01-25 14:03 | PC.NURSE ---
Rah Jurado APRN from cardiology is at bedside for a consult.
--- NOTE | 2024-01-25 14:14 | CA_ITS ---
APPROVED REPORT EXAM: Comprehensive 2D, Doppler, and color-flow Echocardiogram Composition Stone Applicator: Mary Garcia CRT Ht: 5 ft 0 in Wt: 161lbs BSA: 1.70 BP: 143/95 mmHg Indications: Shortness of Breath B/S ordered Echo Enhancing Agent Indication: Rule out Shunt Agent(s) / Amount(s) Used: Agitated Saline 5 cc Comments: B/S ordered 2D Dimensions Left Atrium 2.84 cm LVEF (Castañeda's) 66.10 % LVOT 1.73 cm (M/F) 1.5-2.5 LV Volume 65.10 mL LA Volume 22.40 mL LA Volume Index 13.20 mL/m2 (M/F) 16-34 EF AP4 69.90 % EF AP2 60.9 % EF BP 66.1 % GL Strain -25.8 % M-Mode Dimensions RVDd 2.44 cm (0.9-2.6) LVDd 4.38 cm (3.5-5.7) Ao Diam 3.61 cm (2.0-3.7) LVDs 3.01 cm (3.5-5.7) IVSd 1.47 cm (0.6-1.1) PWd 0.60 cm (0.6-1.1) EF (Teich) 59.30% FS 31.30% EDV (Teich) 86.80 mL TAPSE 2.70 (<1.7) ESV (Teich) 35.30 mL LV Diastology E Decel Time 136 (160-240 msec) E/A Ratio 0.63 MED E' 6.8 (>= 7 cm/sec) MED A' 9.20 cm/s E'/MED E' Ratio 8.57 (<= 14) LAT E' 8.5 (>= 10 cm/sec) LAT A' 14.20 cm/s E/LAT E' Ratio 6.86 (<= 14) Aortic Valve AoV Peak Arnulfo. 105.0 (50-130 cm/s) AO Peak GR. 4.40 mmHg Mitral Valve MV E Max Arnulfo. 58.0 (40-130 cm/s) MV A Velocity 92.0 (40-130 cm/s) E/A Ratio 0.63 MV Decel. Time 136 (160-240 ms) Tricuspid Valve TR P. Velocity 243.00 cm/s RAP Estimate 10.00 mmHg RVSP 33.60 mmHg Left Ventricle The left ventricle is normal size. The left ventricular systolic function is normal. The left ventricular ejection fraction is within the normal range. There is increased LV wall thickness. There is normal LV segmental wall motion. The left ventricular diastolic function is normal. LVEF is 55%. Right Ventricle The right ventricle is normal size. The right ventricular systolic function is normal. Atria The left atrium size is normal. The right atrium size is normal. There is no Doppler evidence of interatrial shunt. Agitated saline administration demonstrates positive interatrial shunt. Bubbles were noted within the LV within 3-4 cardiac cycles. Aortic Valve The aortic valve is mildly thickened. There is no aortic valvular stenosis. No aortic regurgitation is present. Mitral Valve The mitral valve leaflets are mildly thickened. No evidence of mitral valve stenosis. Trace mitral regurgitation. Tricuspid Valve The tricuspid valve leaflets are thin and pliable. Trace tricuspid regurgitation. There is insufficient TR jet to estimate RVSP. Pulmonic Valve The pulmonary valve is normal in structure. Trace pulmonic regurgitation. Great Vessels The aortic root is normal in size. The ascending aorta is not well-visualized. IVC is normal in size and collapses >50% with inspiration. Pericardium There is no pericardial effusion. Other Information Study Quality: Technically Difficult Conclusion Technically difficult study due to poor acoustic windows. Normal biventricular systolic function. No significant valvular stenosis or regurgitation. Agitated saline administration (bubble study) demonstrates positive interatrial shunt. Bubbles were noted in the LV within 3-4 cardiac cycles. Further evaluation for interatrial shunt is recommended with JARRETT and cardiac MRI (cardiomyopathy protocol). Of note, the RV size and function appears normal. Additional assessment for alternative etiologies of chronic hypoxia polycythemia is recommended. Electronically signed by : Sis Fernandez MD 01/25/2024 15:16:39
[2024-01-25 14:20] LABS: NT Pro Brain Natriuretic Pep. 88.3 pg/mL (0-125)
--- NOTE | 2024-01-25 14:26 | PC.NURSE ---
pt gone to echo
--- NOTE | 2024-01-25 14:39 | P.CONCA_ITS ---
History of Present Illness History of Present Illness Consult date: 01/25/24 Requesting physician: Sally Stephens Chief complaint: Hypoxemia History of present illness: This is a 68-year-old white female with past medical history of polycythemia, tobacco use, hypertension COPD/emphysema and obesity who presented to the emergency department today with concerns for hypoxia. Patient reports she was upstairs doing a PFT when staff became concerned that she was hypoxic with sats in the 80s on room air. Patient denies shortness of breath or chest pain currently. Hospital staff called Dr. Garcia the ordering physician who suggested patient go to the ER to be further evaluated. Patient reports oxygen saturation has been running low in the 80s at home for months. She endorses soa with exertion and denies chest pain. Patient is scheduled to see Dr. Gonzalez in January. EKG upon presentation to emergency department showed normal sinus rhythm at a rate of 75 without acute ischemic changes noted. Labs were as follow: WBC 8.7, hemoglobin 17.4 sodium 139, potassium 4.1, BUN 13, creatinine 0.6, troponin negative, D-dimer negative and proBNP 88.3. Chest x-ray is negative for acute cardiopulmonary process. The ER physician spoke with Dr. Gonzalez who states that the patient only has mild COPD and that her hypoxemia is disproportionate to her identified pulmonary problems and is requesting cardiology to see patient and obtain an echo with a bubble study. [facility] Disclaimer: The information contained in this section may have been updated after the patient was seen, as this information can be updated by other users. Medical History Fracture of toe Contusion of right forearm Right forearm pain Establishing care with new doctor, encounter for Shingles Prolapse of uterus Strain of mid-back Dermatitis Urinary tract infection Urinary problem Sinusitis Acute bronchitis UTI (urinary tract infection) Immunization due Allergic bronchitis URI (upper respiratory infection) Surgical History Hx of cholecystectomy History of tubal ligation Family History (Updated 01/14/24 @ 11:02 by Sharon Acosta) Mother Parkinson disease Dementia Father Stroke Brother Cancer Brother Crohn's disease Social History (Updated 01/14/24 @ 11:04 by Sharon Acosta) Smoking Status: Current every day smoker tobacco type: cigarettes packs per day: 1 second hand exposure: Yes alcohol intake: never substance use type: denies use current occupational status: employed Travel in the last 8 weeks: None household members: family housing: house marital status: number of children: 2 number of grandchildren: 4 Review of Systems Review of Systems Review of systems:: pertinent systems reviewed and negative unless documented below *Cardiovascular Cardiovascular: Denies chest pain and Reports dyspnea on exertion *Respiratory Respiratory: Reports dyspnea on exertion Exam Data for Last 24 hours Vital signs and Labs for Last 24 Hours: Temp Pulse Resp BP Pulse Ox O2 Del Method O2 Flow Rate 97.9 F 72 16 133/79 90 L Nasal Cannula 2 01/25/24 11:49 01/25/24 13:35 01/25/24 11:49 01/25/24 13:35 01/25/24 13:35 01/25/24 13:30 01/25/24 13:30 Laboratory Results - last 24 hr 01/25/24 12:15: WBC 8.7, RBC 4.90, Hgb 17.4 H, Hct 46.3, MCV 94.6, MCH 35.6 H, MCHC 37.6 H, RDW 14.3, Plt Count 275, MPV 7.6, Neut % (Auto) 58.2, Lymph % (Auto) 27.6, Emmet % (Auto) 6.3, Eos % (Auto) 6.2, Baso % (Auto) 1.7, Neut # (Auto) 5.1, Lymph # (Auto) 2.4, Emmet # (Auto) 0.6, Eos # (Auto) 0.6 H, Baso # (Auto) 0.2, PT 10.5, INR 0.93, D-Dimer 0.30, Sodium 139, Potassium 4.1, Chloride 112 H, Carbon Dioxide 22, Anion Gap 9.1, BUN 13, Creatinine 0.60, Estimated Creat Clear 60, Estimated GFR 99, Est GFR ( Amer) 120, Glucose 101 H, Calcium 9.0, Total Bilirubin 0.8, AST 25, ALT 25, Alkaline Phosphatase 89, Troponin I < 0.01, NT-Pro-B Natriuret Pep 88.3, Total Protein 7.4, Albumin 4.2, Globulin 3.2, Albumin/Globulin Ratio 1.3 01/25/24 12:21: VBG pH 7.41, VBG pCO2 32.8 L, VBG pO2 64.8 H, VBG HCO3 20.1 L, VBG Total CO2 21.1 L, VBG O2 Saturation 94.4 H, VBG Base Excess -4.6 L, VBG Lactic Acid 1.8 I & O for Last 24 hours: Intake & Output 01/22/24 01/23/24 01/24/24 01/25/24 23:59 23:59 23:59 23:59 Weight 160 lb Constitutional Constitutional: no acute distress *Routine Respiratory Exam Respiratory: Present CTA bilaterally and symmetric chest movement *Routine Cardiovascular Exam Cardiovascular: Present RRR, Normal S1 and Normal S2 *Routine Abdominal Exam Abdominal: Present soft and normoactive bowel sounds; Absent tenderness *Routine Extremities Exam Extremities: Present clubbing, full ROM and normal capillary refill; Absent edema *Routine Skin Exam Skin: Present intact, dry and warm Detailed Neck Exam: Thyroids Thyroid: Absent bruit Meds Home Medications and Allergies Home Medications ?Medication ?Instructions ?Recorded ?Confirmed ?Type albuterol sulfate 90 mcg/actuation 2 puff inhalation Q4-6H PRN 01/20/23 01/14/24 Rx aerosol inhaler (Ventolin HFA) shortness of breath or wheezing #6.7 grams docusate sodium 100 mg capsule 100 mg PO DAILY PRN 03/08/23 01/14/24 History (Colace) oxybutynin chloride 10 mg 10 mg PO DAILY #90 tabs 11/11/23 01/14/24 Rx tablet,extended release 24 hr carvedilol 6.25 mg tablet 6.25 mg PO BID #180 tabs 12/13/23 01/14/24 Rx sertraline 50 mg tablet 50 mg PO QHS #90 tabs 12/13/23 01/14/24 Rx buspirone 10 mg tablet 10 mg PO TID #270 tabs 01/10/24 01/14/24 Rx cetirizine 10 mg tablet (Zyrtec) 10 mg PO DAILY #90 tabs 01/10/24 01/14/24 Rx fluticasone fur. 100 mcg-umeclid 1 inh inhalation DAILY #60 ea 01/10/24 01/14/24 Rx 62.5 mcg-vilant 25 mcg inhalat.powder (Trelegy Ellipta) guaifenesin 600 mg tablet, 600 mg PO Q12H PRN congestion #180 01/10/24 01/14/24 Rx extended release 12 hr tabs nicotine 21 mg/24 hr daily 1 patch transdermal Q24H #28 ea 01/10/24 01/14/24 Rx transdermal patch tizanidine 2 mg tablet 2 mg PO TID PRN muscle spasticity 01/10/24 01/14/24 Rx #90 tabs cholecalciferol (vitamin D3) 50 50 mcg PO DAILY 01/14/24 01/14/24 History mcg (2,000 unit) capsule New Prescriptions to Start Prescriptions: Allergies Allergy/AdvReac Type Severity Reaction Status Date / Time codeine Allergy Mild Verified 01/13/24 16:21 Assessment and Plan *Assessment and plan (1) Dyspnea: Status: Acute Category: Medical Code(s): R06.00 - Dyspnea, unspecified (2) Polycythemia: Status: Chronic Category: Medical Code(s): D75.1 - Secondary polycythemia (3) Nocturnal hypoxemia: Status: Suspected Category: Medical Code(s): G47.34 - Idiopathic sleep related nonobstructive alveolar hypoventilation (4) HTN (hypertension): Status: Chronic Qualifiers: Hypertension type: primary hypertension Qualified Code(s): I10 - Essential (primary) hypertension Category: Medical Code(s): I10 - Essential (primary) hypertension (5) Tobacco abuse: Problem Comment: 0.5-1ppd smoker x50 years (since the age of 18) Status: Acute Category: Medical Code(s): Z72.0 - Tobacco use Plan Chronic hypoxic respiratory failure polycythemia noted, hgb 17.4 clubbing of nails present chest xray negative Troponin negative d dimer negative bnp 88.3 6 min walk test recommends 4 Liters NC nocturnal hypoxia noted on sleep study ct chest 11/02/2023: Moderate coronary artery calcifications are present. There is no pericardial or pleural effusion noted. There is mild emphysema and mild to moderate pulmonary scarring and fibrosis greatest in the periphery. Severely calcified granulomas are present. 4 mm left lower lobe nodule present Echo with bubbles study: Normal biventricular systolic function with no significant valvular stenosis or regurg. Agitated saline administration demonstrates positive interatrial shunt, bubbles were noted in the LV within 3-4 cardiac cycles. Further evaluation for interatrial shunt is recommended with JARRETT and cardiac MRI cardiomyopathy protocol. Of note the RV size and function appears normal additional assessment for alternative etiologies of chronic hypoxia polycythemia is recommended CT abdomen pelvis ordered and pending- Prelim read shows no masses identified, official read is pending. CV summary: Patient is CV stable for discharge home. Patient will need to be discharged home with a prescription for home oxygen. Patient has an office follow-up in cardiology clinic on at 2:00. Patient will need outpatient cardiac MRI and JARRETT scheduled to further evaluate intra-atrial shunt. Patient will also need referral to hematology and will need to keep her scheduled follow-up with pulmonology.
--- NOTE | 2024-01-25 15:21 | CT_ITS ---
FINAL REPORT TECHNIQUE: After the administration of oral and intravenous contrast, axial images were obtained through the abdomen and pelvis by computed tomography. The study was performed with techniques to keep radiation dose as low as reasonably achievable, (ALARA). Individual dose reduction techniques using automated exposure control or adjustment of mA and/or kV according to the patient's size were employed. CLINICAL HISTORY: r/o mass COMPARISON: None FINDINGS: Abdomen: Chronic scarring is present in the lung bases. The liver parenchyma is homogeneous. The gallbladder is not well-visualized. The spleen, pancreas, and adrenals appear unremarkable. There is a benign-appearing 12 mm left renal cyst noted. A small umbilical hernia is present containing fat. The aorta is normal in caliber. There is no free fluid or adenopathy. Pelvis: The appendix is not identified. The urinary bladder is unremarkable. There is no free fluid or adenopathy. A pessary device is present in the pelvis. Noncalcified plaque is present in the left side of the abdominal aorta. IMPRESSION: Small umbilical hernia containing fat. Benign-appearing 12 mm left renal cyst. No focal intra-abdominal masses otherwise identified. Reviewed, Interpreted and Dictated by Alexy Rice MD Transcribed by Luz Mendez Authenticated and [facility]
--- NOTE | 2024-01-25 15:38 | PC.NURSE ---
Dr. Schuler and James Jurado APRN from Cardiology at bedside
[2024-01-25] MEDS: SODIUM CHLORIDE 0.9% 10ML SYR (RAD ONLY) 10 ML IV (15:43)
[2024-01-25] MEDS: IOPAMIDOL-370 (76%);100ML BOTTLE 75 ML IV (15:43)
--- NOTE | 2024-01-25 15:58 | PC.NURSE ---
Dr. Schuler s/w Dr. Corona. Recommended pt to be started on home o2 and that cards will follow up for further testing. STates to ok to d/c with home o2
--- NOTE | 2024-01-25 16:13 | PC.NURSE ---
Dr. Croona s/w Dr. Gonzalez to follow up with pulmonary after card follow up eval.
--- NOTE | 2024-01-25 16:16 | PC.NURSE ---
Faportiag order and note to [facility]
--- NOTE | 2024-01-25 16:22 | PC.NURSE ---
[facility] notified of new oxygen order.
== END 2024-01-25 17:07 | disposition home or self-care (01) ==
PROVIDERS: Emergency Medicine; Emergency Provider Emergency Medicine; PCP Nurse Practitioner Family
DX: R06.00 Dyspnea, unspecified (principal); D75.1 Secondary polycythemia; G47.34 Idiopathic sleep related nonobstructive alveolar hypoventilation; I10 Essential (primary) hypertension; F17.210 Nicotine dependence, cigarettes, uncomplicated; J44.9 Chronic obstructive pulmonary disease, unspecified; R06.83 Snoring
CPT/HCPCS: 71046; 74177; 80053; 82803; 83880; 84484; 85025; 85378; 85610; 93005; 93306; 94060; 94618; 94640; 94726; 94729; 99284; J7613; Q9967

== ENCOUNTER 2024-01-27 15:20 | Outpatient (CLI) | payer MEDICARE, BC, SELFPAY | END 2024-01-27 23:59 | disposition home or self-care (01) | LOC: RT 15:21 | PROVIDERS: PCP Nurse Practitioner Family; Visit Provider Specialist | DX: G47.30 Sleep apnea, unspecified (principal); G47.34 Idiopathic sleep related nonobstructive alveolar hypoventilation ==

== ENCOUNTER 2024-01-31 13:59 | Outpatient (POV) | payer MEDICARE, BC, SELFPAY ==
--- NOTE | 2024-01-31 14:18 | A.OFFVIS_ITS ---
HPI Data of Consult Patient: new to practice Consult date: 01/31/24 Requesting Physician: Vianney Garcia APRN Primary Care Provider: Bozena Washburn APRN Consult Narrative Reason for consult: Low back pain, bilateral hip pain History of present illness: Ms. Akhtar is a 69 year old female who presents today as a new patient. She is a referral from Aneesh Washburn's office. Today she rates her pain an 8 out of 10. Patient states her pain is all in her low back and bilateral hips. Patient does state that this is an aching, throbbing sensation that is worse with increased activity or prolonged positioning like standing or walking. Patient states this has been going on for years and progressively worsened over time. Patient does state that when she was much younger she did even a significant fall where she slipped on the ice and hit directly on concrete. Patient has recently had x-ray imaging that did show a chronic compression fracture. Patient does state that she feels like this was related to that fall. Patient does state her pain today is interfering with her ability to perform activities of daily living such as cooking and cleaning. Patient does state that she cannot walk for prolonged. It is without having to stop and sit down. Patient denies any prior surgery or injection history. She has tried to use [id number] medication such as Tylenol and ibuprofen along with tizanidine with minimal relief. Patient has also used heat and ice and topicals such as Voltaren and CBD cream with minimal improvement. Patient has completed physical therapy for her low back pain and states that it did help with her strength however made no change of her pain. Patient does still continue to try and do at home exercising and stretching for longer than 6 weeks with no improvement. Patient does state that she is having issues with her oxygen and is scheduled to see her primary care immediately after this appointment to see about getting portable O2. Patient's oxygen level today in office was 84%. Patient does state that she is getting a cardiac workup for a possible hole in her heart which may be aggravating some of the symptoms.Patient is not on any scheduled medications. Her Jay has been reviewed and is appropriate. CC: Vianney Garcia APRN [facility] Disclaimer: The information contained in this section may have been updated after the patient was seen, as this information can be updated by other users. Medical History (Updated 01/31/24 @ 14:56 by Vianney Garcia APRN) Interatrial cardiac shunt Fracture of toe Contusion of right forearm Right forearm pain Establishing care with new doctor, encounter for Shingles Prolapse of uterus Strain of mid-back Dermatitis Urinary tract infection Urinary problem Sinusitis Acute bronchitis UTI (urinary tract infection) Immunization due Allergic bronchitis URI (upper respiratory infection) Surgical History Hx of cholecystectomy History of tubal ligation Family History Mother Parkinson disease Dementia Father Stroke Brother Cancer lung cancer- 2 brothers Brother Crohn's disease two brothers Social History Smoking Status: Current every day smoker tobacco type: cigarettes packs per day: 1 second hand exposure: Yes alcohol intake: never substance use type: denies use current occupational status: employed Travel in the last 8 weeks: None household members: family housing: house marital status: number of children: 2 number of grandchildren: 4 Review of Systems Review of Systems Review of systems:: pertinent systems reviewed and negative unless documented below Review of systems (narrative): Review of Systems: General: No recent weight changes, no fever, no sleep disturbances Respiratory: No cough, no shortness of air, no recurring pulmonary infections Cardiovascular/peripheral vascular: No chest pain, no palpitations, no edema, no shortness of breath Gastrointestinal: No new onset incontinence, normal bowel movements reported Genitourinary: No new onset incontinence Musculoskeletal: Low back pain, bilateral hip pain Psychiatric: [Normal mood/affect] Neurological: [Denies weakness in extremities], [denies balance issues] Meds Home Medications and Allergies Home Medications ?Medication ?Instructions ?Recorded ?Confirmed ?Type albuterol sulfate 90 mcg/actuation 2 puff inhalation Q4-6H PRN 01/20/23 01/27/24 Rx aerosol inhaler (Ventolin HFA) shortness of breath or wheezing #6.7 grams docusate sodium 100 mg capsule 100 mg PO DAILY PRN 03/08/23 01/27/24 History (Colace) oxybutynin chloride 10 mg 10 mg PO DAILY #90 tabs 11/11/23 01/27/24 Rx tablet,extended release 24 hr carvedilol 6.25 mg tablet 6.25 mg PO BID #180 tabs 12/13/23 01/27/24 Rx sertraline 50 mg tablet 50 mg PO QHS #90 tabs 12/13/23 01/27/24 Rx buspirone 10 mg tablet 10 mg PO TID #270 tabs 01/10/24 01/27/24 Rx cetirizine 10 mg tablet (Zyrtec) 10 mg PO DAILY #90 tabs 01/10/24 01/27/24 Rx fluticasone fur. 100 mcg-umeclid 1 inh inhalation DAILY #60 ea 01/10/24 01/27/24 Rx 62.5 mcg-vilant 25 mcg inhalat.powder (Trelegy Ellipta) guaifenesin 600 mg tablet, 600 mg PO Q12H PRN congestion #180 01/10/24 01/27/24 Rx extended release 12 hr tabs nicotine 21 mg/24 hr daily 1 patch transdermal Q24H #28 ea 01/10/24 01/27/24 Rx transdermal patch tizanidine 2 mg tablet 2 mg PO TID PRN muscle spasticity 01/10/24 01/27/24 Rx #90 tabs cholecalciferol (vitamin D3) 50 50 mcg PO DAILY 01/14/24 01/27/24 History mcg (2,000 unit) capsule New Prescriptions to Start Prescriptions: Allergies Allergy/AdvReac Type Severity Reaction Status Date / Time codeine Allergy Mild Verified 01/27/24 14:11 Objective Narrative: Physical Exam: General: Alert and oriented x3, no acute distress, pleasant and cooperative Lungs: Respirations even and unlabored, symmetrical chest expansion Eyes: PERRL Musculoskeletal: Flexion and extension of lumbar [spine] somewhat guarded secondary to pain, [antalgic gait noted] point tenderness along bilateral SIs with positive bilateral Radhika's, Brenda's, Gaenslen's, compression and distraction exam Neurological: Speech clear, no gross sensory deficit Additional findings Additional findings: FINDINGS: 3 views of the lumbar spine were obtained. There is a mild compression fracture at L5 favored to be chronic. There is mild and moderate degenerative change. Multilevel facet arthropathy is noted. There is mild anterolisthesis of L4 on L5. There are moderate vascular calcifications. No acute paraspinous soft tissue abnormalities identified. IMPRESSION: Mild L5 compression fracture, favor chronic. Mild and moderate degenerative changes. Reviewed, Interpreted and Dictated by Elvis Kinsey III, MD Transcribed by Ivett Borrero Authenticated and [facility] Assessment and Plan *Assessment and plan (1) Degenerative disc disease, lumbar: Status: Acute Category: Medical Code(s): M51.36 - Other intervertebral disc degeneration, lumbar region (2) Bilateral sacroiliitis: Status: Acute Category: Medical Code(s): M46.1 - Sacroiliitis, not elsewhere classified Plan Patient is experiencing significant pain throughout her low back and bilateral hips. Patient did have limited range of motion of her lumbar spine with point tenderness along her bilateral SI's and positive bilateral Radhika's, Brenda's, Gaenslen's, compression and distraction exam. Patient was counseled that she may benefit from bilateral SI injections. Risk and benefits were discussed with the patient and she would like to proceed forward with this plan of care. I did diet counselor the patient that we would monitor her oxygen level during the procedure and that we would want it in the 90s. I will also order the patient a compounded cream. Patient has tried and failed conservative therapy including oral medications, heat and ice, physical therapy and continued home exercise and stretching that was physician guided for longer than 6 weeks with no improvement. Patient will be scheduled for bilateral SI injections under fluoroscopy. Patient has been instructed to contact the clinic with any concerns before the next appointment. Dr. Muñiz has reviewed this note and agrees with this plan of care. This note was dictated using voice recognition software and make contain errors or omissions. All injections are used with Lidocaine or Bupivacaine and Depo Medrol.
[2024-01-31 15:28] VITALS: BP 119/79; PULSE 81; RESP 18; O2SAT 84; BMI 27.4
== END 2024-01-31 23:59 | disposition home or self-care (01) ==
LOC: SC.PAIN 14:00
PROVIDERS: PCP Nurse Practitioner Family; Visit Provider Nurse Practitioner Family
DX: M51.36 Other intervertebral disc degeneration, lumbar region (principal); M46.1 Sacroiliitis, not elsewhere classified; F17.210 Nicotine dependence, cigarettes, uncomplicated; Z73.89 Other problems related to life management difficulty; Z79.899 Other long term (current) drug therapy
CPT/HCPCS: 99202; G0463

== ENCOUNTER 2024-02-15 11:49 | Day surgery (SDC) | payer MEDICARE, BC, SELFPAY ==
[2024-02-15 12:05] VITALS: BP 139/76; PULSE 75; RESP 16; O2SAT 92; BMI 31.2
[2024-02-15] MEDS: methylPREDNISolone ACETATE 80MG/ML VIAL 80 MG (12:18)
[2024-02-15] MEDS: LIDOCAINE 1% 5ML PF VIAL 5 ML (12:20)
[2024-02-15] MEDS: BUPIVACAINE 0.25% 10ML INJ 25 MG IJ (12:20)
--- NOTE | 2024-02-15 12:22 | P.PCN_ITS ---
Procedure Date: 02/15/24 Time: 12:15 Anesthesiologist:: Roberto Sousa CRNA Complications:: None Pre-procedure Diagnosis:: Bilateral sacroiliitis Post-procedure Diagnosis:: Same Indications for Procedure:: Patient is a very pleasant 69-year-old female comes our clinic today for bilateral sacroiliac joint injections of cortisone and local anesthetic. Patient describes low lumbar back pain off the midline bilaterally is constant, dull, aching. She rates her pain 8/10. Procedure Details:: Procedure: Bilateral sacroiliac joint injections under fluoroscopy Informed consent was obtained and the risks and benefits of the procedure were explained to the patient.~ The patient was taken to the procedure room and noninvasive monitors were placed including a noninvasive blood pressure cuff and pulse oximeter.~ The patient was placed prone on the procedure table. Both hips were cleansed using Betadine as a cleansing solution. C-arm fluoroscopy was used to view the right sacroiliac joint.~ The skin and subcutaneous tissues were anesthetized using lidocaine 1.5% and a 25-gauge needle.~ After this, a 22-gauge spinal needle was inserted under fluoroscopic guidance into the inferior aspect of the right sacroiliac joint.~ Omnipaque dye was injected and good spread was seen throughout the joint.~ After this, approximately 5 mL of bupivacaine, 0.25% and Depo-Medrol, 40 mg was incrementally injected into the right sacroiliac joint. We then moved to the left sacroiliac joint.~ The skin and subcutaneous tissues were anesthetized using lidocaine 1.5% and a 25-gauge needle.~ After this, a 22- gauge spinal needle was inserted under fluoroscopic guidance into the inferior aspect of the left sacroiliac joint.~ Omnipaque dye was injected and good spread was seen throughout the joint. After this, approximately 5 mL of bupivacaine, 0.25% and Depo-Medrol, 40 mg was incrementally injected into the left sacroiliac joint.~ The patient tolerated the procedure well with no complications. The patient was observed in the Pain Clinic and then was discharged home neurologically intact. Plan and Disposition:: Patient was discharged without incident.
[2024-02-15 12:26] VITALS: BP 127/73; PULSE 69; RESP 16; O2SAT 93
== END 2024-02-15 12:26 | disposition home or self-care (01) ==
PROVIDERS: PCP Nurse Practitioner Family; Visit Provider Nurse Anesthetist, Certified Registered
DX: M46.1 Sacroiliitis, not elsewhere classified (principal)
CPT/HCPCS: 27096; G0260; J1010

== ENCOUNTER 2024-02-17 09:33 | Outpatient (CLI) | payer MEDICARE, BC, SELFPAY ==
--- NOTE | 2024-02-17 09:35 | MR_ITS ---
APPROVED REPORT Drive Worker: CLINICAL INDICATION Chronic hypoxia TECHNIQUE Image Acquisition: Cardiac magnetic resonance (CMR) was performed on Siemens Espree MRI 1.5T scanner. Software platform sequences were performed using the Siemens Kid Bunch MR B19 platform. A set of three-plane, low-resolution, large nkata-is-opmz localizers were initially acquired. Then axial, coronal, sagittal TrueFISP, as well as axial HASTE images, were obtained. These were followed by gated TrueFISP breathold cinematic sequences obtained in the short axis with 8 mm slices and 2 mm gaps, 2-chamber (vertical long axis), 3-chamber, 4-chamber (horizontal long axis). A bolus of contrast was injected intravenously with first-pass sequences obtained in the short axis and four-chamber planes. After approximately 10 minutes, a TI hotel front office manager sequence was performed to determine the optimal TI time. Using the optimized TI time, delayed contrast enhancement segmented inversion???recovery TurboFLASH sequences were obtained in the short axis, 2-chamber, 3-chamber, and 4-chamber projections. 2D-velocity phase mapping was performed. Functional parameters were calculated by offline analysis on an independent workstation ([employer], [employer]). Contrast: ProHance??? (Gadoteridol) FINDINGS MORPHOLOGY AND FUNCTION Left ventricle: The left ventricle is normal in size. The indexed left ventricular end-diastolic volume (LVEDVi) is 44 ml/m2 (reference range 57-105 ml/m2 in males, 56-96 ml/m2 in females). Normal left ventricular systolic function is present. There is normal left ventricular wall thickness. There are no regional wall motion abnormalities noted. LVEF is calculated at 57.7% (reference range 57-77%). Right ventricle: The right ventricle is normal in size. The indexed right ventricular end-diastolic volume (RVEDVi) is 54 ml/m2 (reference range 61-121 ml/m2 in males, 48-112 ml/m2 in females). There is moderate reduction in right ventricular systolic function. RVEF is calculated at 33.8% (reference range 52-72% in males, 51-71% in females). Atria: The left atrium is normal in size. The maximum indexed left atrial volume is 27 ml/m2 (reference range 26-52 ml/m2 in males, 27-53 ml/m2 in females). The right atrium is normal in size. The maximum indexed right atrial volume is 19 ml/m2 (reference range 18-90 ml/m2). Aorta: The diameter of the aortic annulus is normal, measuring 26 mm (coronal view reference range 21-30 mm in males, 19-27 mm in females). The diameter of the aortic sinus is normal, measuring 32 mm (coronal view reference range 25-42 mm in males, 24-36 mm in females). The diameter of the sinotubular junction is normal, measuring 27 mm (coronal view reference range 18-32 mm in males, 18-28 mm in females). The diameters of the ascending and descending thoracic aorta are normal. Main pulmonary artery: The main pulmonary artery diameter is normal. Pericardium: The pericardial thickness is normal. The pericardial thickness measures 2.0 mm (normal < 4.0 mm). There is no pericardial effusion. VALVES The valvular morphologies in the visualized sequences appear normal. There is no significant valvular stenosis or regurgitation of the mitral, aortic, tricuspid, or pulmonic valve noted visually. Systolic anterior motion of the mitral valve is not visualized. Ratio of pulmonary to systemic flow, Qp:Qs ratio = 1.7 (normal < or = 1.2, hemodynamically significant shunt > 1.5), demonstrating possible evidence of hemodynamically significant shunt. TISSUE CHARACTERIZATION Resting Perfusion: Normal myocardial blood flow at rest. No evidence of resting hypoperfusion. Myocardial Fibrosis and/or edema: Normal gadolinium kinetics are present. No evidence of late gadolinium enhancement is noted, consistent with absence of myocardial scarring, infarction, or necrosis. T2-weighted imaging demonstrates no evidence of myocardial edema or inflammation. OTHER Emphysematous pulmonary changes noted bilaterally IMPRESSION Normal LV size with normal LV systolic function. LVEDVi= 44 ml/m2 and LVEF= 57.7%. Normal RV size with moderate reduction in RV systolic function. RVEDVi= 54 ml/m2 and RVEF= 33.8%. No atrial enlargement. No CMR evidence of myocardial scarring, infarction, or necrosis. No evidence of myocardial edema or inflammation. Perfusion analysis demonstrates normal blood flow at rest with no evidence of resting hypoperfusion. Ratio of pulmonary to systemic flow, Qp:Qs ratio = 1.7 (normal < or = 1.2, hemodynamically significant shunt > 1.5), demonstrating possible evidence of hemodynamically significant shunt. Emphysematous pulmonary changes noted bilaterally Overall, this CMR demonstrates normal LV systolic function, but moderate reduction in RV function associated with emphysematous pulmonary changes noted incidentally. Findings are suggestive of primary pulmonary disease, pulmonary workup is recommended. QP: QS ratio is 1.7. Correlation with JARRETT findings is suggested. COMPARISON None CRITICAL RESULT None COMMUNICATION The above findings were communicated with the patient and her family at the time of her routine outpatient clinic visit prior to dictation of this report. The findings of this cardiac MR were reviewed, reported, and signed by Omar Fernandez MD (Robotics Specialist). Conclusion Electronically signed by : Sis Fernandez MD 03/27/2024 12:47:43
[2024-02-17] MEDS: 0.9 % SODIUM CHLORIDE 50 ML VIAL 20 ML IV (11:00)
[2024-02-17] MEDS: SODIUM CHLORIDE 0.9% 10ML SYR (RAD ONLY) 10 ML IV (11:00)
[2024-02-17] MEDS: GADOTERIDOL INJ 20ML SYRINGE 17 ML IV (11:00)
== END 2024-02-17 23:59 | disposition home or self-care (01) ==
LOC: RAD 09:35
PROVIDERS: PCP Nurse Practitioner Family; Visit Provider Internal Medicine
DX: Q24.8 Other specified congenital malformations of heart (principal)
CPT/HCPCS: 75561; A9576

== ENCOUNTER 2024-03-03 12:48 | Outpatient (CLI) | payer MEDICARE, BC, SELFPAY ==
[2024-03-03 13:30] LABS: Erythrocyte Sedimentation Rate 2 mm/hr (0-30)
[2024-03-03 13:52] LABS: Uric Acid 6.1 mg/dl (2.5-6.2)
[2024-03-03 13:58] LABS: C-Reactive Protein 3.9 mg/L (0-4)
[2024-03-04 10:12] LABS: RA Latex Turbid. <10.0 IU/mL (<14.0)
[2024-03-04 13:17] LABS: Anti-Cyclic Citrullinated Pept 2 units (0-19)
[2024-03-07 14:19] LABS: Antinuclear Antibodies, IFA Negative (.)
[2024-03-08 10:14] LABS: Aspergillus fumigatus IgG Negative (Negative); Pigeon Serum Abs Negative (Negative)
[2024-03-16 16:04] LABS: Antinuclear Antibodies (ANA) Negative
== END 2024-03-03 23:59 | disposition home or self-care (01) ==
LOC: LAB 12:49
PROVIDERS: PCP Nurse Practitioner Family; Visit Provider Internal Medicine Pulmonary Disease
DX: J84.9 Interstitial pulmonary disease, unspecified (principal); R06.09 Other forms of dyspnea
CPT/HCPCS: 36415; 84550; 85651; 86038; 86140; 86200; 86225; 86235; 86331; 86431; 86602; 86606; 86609

== ENCOUNTER 2024-03-13 15:33 | Outpatient (POV) | payer MEDICARE, BC, SELFPAY ==
[2024-03-13 16:07] VITALS: BP 137/68; PULSE 72; RESP 20; O2SAT 93; BMI 31.2
--- NOTE | 2024-03-13 16:24 | A.OFFVIS_ITS ---
[facility] Disclaimer: The information contained in this section may have been updated after the patient was seen, as this information can be updated by other users. Medical History (Updated 03/03/24 @ 12:37 by Shaheed Mcnamara MD) Mediastinal lymphadenopathy Smoking greater than 30 pack years Fibrosis of lung Hilar lymphadenopathy Lung nodule COPD mixed type Dyspnea on exertion Interatrial cardiac shunt Fracture of toe Contusion of right forearm Right forearm pain Establishing care with new doctor, encounter for Shingles Prolapse of uterus Strain of mid-back Dermatitis Urinary tract infection Urinary problem Sinusitis Acute bronchitis UTI (urinary tract infection) Immunization due Allergic bronchitis URI (upper respiratory infection) Surgical History Hx of cholecystectomy History of tubal ligation Family History Mother Parkinson disease Dementia Father Stroke Brother Cancer lung cancer- 2 brothers Brother Crohn's disease two brothers Social History Smoking Status: Current every day smoker tobacco type: cigarettes packs per day: 1 second hand exposure: Yes alcohol intake: never substance use type: denies use current occupational status: employed Travel in the last 8 weeks: None household members: family housing: house marital status: number of children: 2 number of grandchildren: 4 PM Subjective & Objective Subjective Subjective:: Patient is a pleasant 69-year-old female who presents today for follow-up of bilateral SI injections. Today she rates her pain a 3 out of 10. Patient does state that she has had at least 90% improvement following these injections. Patient states that the pain that was in her upper thighs is completely gone now. Patient does state that she still has an occasional dull back pain with prolonged standing however it is much more manageable and she can often do some stretching or sit down and rest and it does go away. Patient does state that the compounded cream did help additionally. She does state from her last visit that she has ended up on continuous O2. Patient had a pulmonary function test and failed it. Patient does also state that she was also diagnosed with a hole in her heart and that she does have an upcoming appointment with cardiology as well as having to get scheduled for a sleep test coming up. Patient is managed with tizanidine 2 mg 3 times daily as needed. Her Jay has been reviewed and is appropriate. Review of Systems: General: No recent weight changes, no fever, no sleep disturbances Respiratory: No cough, no shortness of air, no recurring pulmonary infections Cardiovascular/peripheral vascular: No chest pain, no palpitations, no edema, no shortness of breath Gastrointestinal: No new onset incontinence, normal bowel movements reported Genitourinary: No new onset incontinence Musculoskeletal: Low back pain Psychiatric: [Normal mood/affect] Neurological: [Denies weakness in extremities], [denies balance issues] Pain at rest (0-10 scale): 3 Objective Objective:: Physical Exam: General: Alert and oriented x3, no acute distress, pleasant and cooperative Lungs: Respirations even and unlabored, symmetrical chest expansion Eyes: PERRL Musculoskeletal: Flexion and extension of lumbar [spine] somewhat guarded secondary to pain, [antalgic gait noted] Neurological: Speech clear, no gross sensory deficit Has patient had previous pain injection?: Yes Percent improvement in pain since last injection: 90% Conservative treatment options previously tried: Home exercise plan Length of treatment: Longer than 6 weeks Meds Home Medications and Allergies Home Medications ?Medication ?Instructions ?Recorded ?Confirmed ?Type docusate sodium 100 mg capsule 100 mg PO DAILY PRN BOWELS 03/08/23 03/13/24 History (Colace) carvedilol 6.25 mg tablet 6.25 mg PO BID #180 tabs 12/13/23 03/13/24 Rx sertraline 50 mg tablet 50 mg PO QHS #90 tabs 12/13/23 03/13/24 Rx buspirone 10 mg tablet 10 mg PO TID #270 tabs 01/10/24 03/13/24 Rx cetirizine 10 mg tablet (Zyrtec) 10 mg PO DAILY #90 tabs 01/10/24 03/13/24 Rx fluticasone fur. 100 mcg-umeclid 1 inh inhalation DAILY #60 ea 01/10/24 03/13/24 Rx 62.5 mcg-vilant 25 mcg inhalat.powder (Trelegy Ellipta) guaifenesin 600 mg tablet, 600 mg PO Q12H PRN congestion #180 01/10/24 03/13/24 Rx extended release 12 hr tabs nicotine 21 mg/24 hr daily 1 patch transdermal Q24H #28 ea 01/10/24 03/13/24 Rx transdermal patch tizanidine 2 mg tablet 2 mg PO TID PRN muscle spasticity 01/10/24 03/13/24 Rx #90 tabs cholecalciferol (vitamin D3) 50 50 mcg PO DAILY 01/14/24 03/13/24 History mcg (2,000 unit) capsule albuterol sulfate 90 mcg/actuation 2 puff inhalation Q4-6H PRN 01/31/24 03/13/24 Rx aerosol inhaler (Ventolin HFA) shortness of breath or wheezing #6.7 grams New Prescriptions to Start Prescriptions: Allergies Allergy/AdvReac Type Severity Reaction Status Date / Time codeine Allergy Mild Verified 03/03/24 11:55 Assessment and Plan *Assessment and plan (1) Degenerative disc disease, lumbar: Status: Acute Category: Medical Code(s): M51.36 - Other intervertebral disc degeneration, lumbar region Plan Patient has had significant improvement following her bilateral SI injections. She does not need any additional injection therapy at this time. Patient will be changed from tizanidine 2 mg to 4 mg 3 times daily with a 1 month supply. Patient will return to clinic in 1 month for reevaluation of symptoms and plan of care. Patient has been instructed to contact the clinic with any concerns before the next appointment. Dr. Muñiz has reviewed this note and agrees with this plan of care. This note was dictated using voice recognition software and make contain errors or omissions. All injections are used with Lidocaine or Bupivacaine and Depo Medrol.
== END 2024-03-13 23:59 | disposition home or self-care (01) ==
PROVIDERS: PCP Nurse Practitioner Family; Visit Provider Nurse Practitioner Family
DX: M51.36 Other intervertebral disc degeneration, lumbar region (principal); F17.210 Nicotine dependence, cigarettes, uncomplicated
CPT/HCPCS: 99212; G0463

== ENCOUNTER 2024-03-15 09:20 | Day surgery (SDC) | payer MEDICARE, BC, SELFPAY ==
[2024-03-14 10:36] VITALS: BMI 31.2
--- NOTE | 2024-03-15 09:29 | CA_ITS ---
APPROVED REPORT EXAM: Comprehensive 2D, Doppler, and color-flow Echocardiogram Smutter: Tayler BettencourtJUNIE Ht: 5 ft 0 in Wt: 159lbs BSA: 1.69 BP: 138/71 mmHg Indications: POSITIVE BUBBLE STUDY ON TTE (INTERATRIAL VS INTRAPULMONARY SHUNT),COPD,CHAPA,SMOKER Procedure After obtaining informed consent, patient underwent transesophageal echo in the [facility]. Type of Sedation : MAC Sedation was administered by Lucie Hernandez C.R.N.A. Sedation start time: 11:00 Case end Time: 11:20 Transesophageal probe was inserted and advanced into esophagus without difficulty by Dr. Omar Fernandez. The JARRETT was performed without complications. Throughout the procedure, the blood pressure, pulse oximetry, cardiac rhythm, and rate were monitored. The patient tolerated the procedure without adverse effects. Recovery from conscious sedation was uneventful and vital signs were stable. Left Ventricle The left ventricle is normal size. The left ventricular systolic function is normal. The left ventricular ejection fraction is within the normal range. There is increased LV wall thickness. There is normal LV segmental wall motion. LVEF is 55%. Right Ventricle The right ventricle is normal size. The right ventricular systolic function is normal. Atria The left atrium size is normal. No thrombus is visualized in the left atrium or appendage. The right atrium size is normal. Interatrial septum is intact without evidence of ASD or PFO. There is no color Doppler evidence of interatrial shunt. Agitated saline administration demonstrates no evidence of interatrial shunt. Aortic Valve The aortic valve opens well. The aortic valve is trileaflet. There is no aortic valvular stenosis. No aortic regurgitation is present. Mitral Valve The mitral valve is mildly thickened. No evidence of mitral valve stenosis. Trace mitral regurgitation. Tricuspid Valve The tricuspid valve leaflets are thin and pliable. Trace tricuspid regurgitation. RVSP is 7 mmHg plus RA pressure. Pulmonic Valve The pulmonary valve is normal in structure. Trace pulmonic regurgitation. Great Vessels The aortic root is normal in size. The ascending aorta is normal in size. Pericardium There is no pericardial effusion. Other Information Study Quality: Fair Conclusion Normal biventricular systolic function. No significant valvular stenosis or regurgitation. Interatrial septum is intact without evidence of ASD or PFO. There is no color Doppler evidence of interatrial shunt. Agitated saline administration demonstrates no evidence of interatrial shunt. Overall, this study does not demonstrate evidence of interatrial shunt. The previously noted positive bubble study on TTE is likely due to intrapulmonary shunting in the setting of underlying lung disease. Electronically signed by : Sis Fernandez MD 03/15/2024 14:56:58
[2024-03-15 09:48] VITALS: BP 124/66; PULSE 80; RESP 16; TEMP 36.3; O2SAT 91
[2024-03-15] MEDS: LACTATED RINGERS 1000ML 1,000 ML 25 ML IV (09:57)
[2024-03-15 10:12] LABS: Chloride 110 mmol/L (98-107); Sodium 139 mmol/L (136-145)
[2024-03-15 10:13] LABS: Potassium 4.4 mmoL/L (3.5-5.1)
[2024-03-15 10:15] LABS: Blood Urea Nitrogen 13 mg/dl (7-17); INR 0.92 (0.9-1.1); Prothrombin Time 10.4 seconds (10.1-12.5)
[2024-03-15 10:16] LABS: Anion Gap 12.4 mEq/L (5-15); Calcium 9.3 mg/dl (8.4-10.2); Carbon Dioxide 21 mmol/L (22.0-30.0); Creatinine Clearance Estimated 59 mL/min (50-200); Estimated Glomerular Filt Rate 99 ml/min (>60); GFR (African American) 119 ML/MIN (>60); Glucose 115 mg/dl (74-100)
--- NOTE | 2024-03-15 10:28 | ECG_ITS ---
APPROVED REPORT Exam: Resting ECG HR:67 bpm ECG Measurements Heart Rate 67 AXES VT 170 P 23 QRSd 82 QRS 85 QT 407 T 38 QTc 422 Conclusion SINUS RHYTHM LOW QRS VOLTAGE IN PRECORDIAL LEADS [QRS DEFLECTION < 1.0 mV IN CHEST LEADS] POSSIBLE RIGHT VENTRICULAR CONDUCTION DELAY [RSR (QR) IN V1/V2] BORDERLINE ECG UNCONFIRMED REPORT Electronically signed by : Orville Jaramillo MD 03/17/2024 14:20:29
--- NOTE | 2024-03-15 10:30 | EXP.ANES.CKL ---
[facility] Disclaimer: The information contained in this section may have been updated after the patient was seen, as this information can be updated by other users. Medical History Mediastinal lymphadenopathy Smoking greater than 30 pack years Fibrosis of lung Hilar lymphadenopathy Lung nodule COPD mixed type Dyspnea on exertion Interatrial cardiac shunt Fracture of toe Contusion of right forearm Right forearm pain Establishing care with new doctor, encounter for Shingles Prolapse of uterus Strain of mid-back Dermatitis Urinary tract infection Urinary problem Sinusitis Acute bronchitis UTI (urinary tract infection) Immunization due Allergic bronchitis URI (upper respiratory infection) Surgical History Hx of cholecystectomy History of tubal ligation Family History Mother Parkinson disease Dementia Father Stroke Brother Cancer lung cancer- 2 brothers Brother Crohn's disease two brothers Social History Smoking Status: Current every day smoker tobacco type: cigarettes packs per day: 1 second hand exposure: Yes alcohol intake: never substance use type: denies use current occupational status: employed Travel in the last 8 weeks: None household members: family housing: house marital status: number of children: 2 number of grandchildren: 4 [facility] Anesthesia Checklist Patient Identification Patient Identification: Arm Band and Verbal (Name & ) Structural Data Admitted From: Home Planned Operative Procedure/s: JARRETT Consent for Planned Operative Procedure(s) Verified: Yes Verified Documents: Surgical Consent and History and Physical NPO Status Verified Time NPO: 00:00 Additional verifications Anesthesia Reactions: No Airway Assessment Mallampati Score:: Class II C-Spine Mobility Assessed: No TMJ Mobility Assessed: No Dentition: Good Dentition Neurological Assessment Level of Consciousness: Awake Hx Seizures: No Numbness or tingling in extremities: No Anesthesia Plan Anesthesia Risk discussed: Yes Anesthesia Plan: Verified ASA Class: III Anesthesia Type: MAC
[2024-03-15 10:57] LABS: Basophils # 0.1 K/mm3 (0-0.2); Basophils % 1.1 % (0.1-2.0); Eosinophils # 0.4 K/mm3 (0.0-0.4); Eosinophils % 4.3 % (0.1-12.0); Hematocrit 52.8 % (37.0-47.0); Hemoglobin 17.2 g/dL (12.2-16.2); Lymphocytes # 2.5 K/mm3 (0.7-4.5); Lymphocytes % 24.1 % (10-50); Mean Corpuscular HGB Conc 32.7 g/dL (31.8-35.4); Mean Corpuscular Hemoglobin 31.3 pg (27.0-31.2); Mean Corpuscular Volume 95.8 fl (81-99); Mean Platelet Volume 7.9 fl (7.4-10.4); Monocytes # 0.6 K/mm3 (0.1-1.0); Monocytes % 5.9 % (1.7-9.3); Neutrophils # 6.6 K/mm3 (1.8-7.8); Neutrophils % 64.5 % (37.0-80.0); Platelet Count 325 K/mm3 (142-424); Red Blood Count 5.51 M/mm3 (4.20-5.40); Red Cell Distribution Width 13.7 % (11.5-17.5); White Blood Count 10.2 K/mm3 (4.8-10.8)
[2024-03-15 11:03] VITALS: O2SAT 93
[2024-03-15 11:19] VITALS: BP 94/59; PULSE 83; RESP 18; TEMP 36.4; O2SAT 96
[2024-03-15 11:28] VITALS: BP 93/60; PULSE 79; RESP 18; O2SAT 97
[2024-03-15 11:39] VITALS: BP 120/80; PULSE 75; RESP 16; O2SAT 97
[2024-03-15 11:49] VITALS: BP 107/52; PULSE 83; RESP 16; O2SAT 96
== END 2024-03-15 12:00 | disposition home or self-care (01) ==
PROVIDERS: PCP Nurse Practitioner Family; Visit Provider Internal Medicine
DX: J44.9 Chronic obstructive pulmonary disease, unspecified; Z79.899 Other long term (current) drug therapy; Q21.19 Other specified atrial septal defect
CPT/HCPCS: 80048; 85025; 85610; 93005; 93270; 93312; 93319; J2250; J7120

== ENCOUNTER 2024-03-29 09:34 | Outpatient (CLI) | payer MEDICARE, BC, SELFPAY ==
--- NOTE | 2024-03-29 09:34 | CT_ITS ---
FINAL REPORT TECHNIQUE: Axial images were obtained from the lung apex to the mid abdomen by computed tomography. Coronal and sagittal reformatted images were obtained. Supine inspiration and expiration and prone inspiration hi-resolution images were obtained and reviewed. This study was performed with techniques to keep radiation doses as low as reasonably achievable, (ALARA). Individualized dose reduction techniques using automated exposure control or adjustment of mA and/or kV according to the patient''s size were employed. CLINICAL HISTORY: pulmonary nodule. Shortness of breath, patient on 3 liters nasal canula COMPARISON: 11/02/2019 FINDINGS: There is no axillary adenopathy. There are multiple small mediastinal lymph nodes. The largest is located in the anterior mediastinum and measures 1.4 cm. Prevascular nodes measure up to 1.3 cm. Findings are stable compared to the prior study. Heart size is normal. There is no pericardial or pleural effusion. Limited images of the upper abdomen are unremarkable. Lung windows demonstrate coarse interstitial opacity in the periphery of both lungs. On expiratory imaging, there is no definite air trapping. On prone inspiratory imaging, the interstitial opacity persists and is consistent with fibrosis. The tiny nodule in the left lower lobe is again identified on image 28 of series 2 but is smaller than on the previous exam. IMPRESSION: Moderate changes of chronic interstitial fibrosis. Slight decrease in size pulmonary nodule left lower lobe. Mild mediastinal adenopathy favored to be reactive. Reviewed, Interpreted and Dictated by Alexy Rice MD Transcribed by Ivett Borrero Authenticated and [facility]
== END 2024-03-29 23:59 | disposition home or self-care (01) ==
LOC: RAD 09:34
PROVIDERS: PCP Nurse Practitioner Family; Visit Provider Internal Medicine Pulmonary Disease
DX: J84.9 Interstitial pulmonary disease, unspecified (principal)
CPT/HCPCS: 71250

== ENCOUNTER → 2024-04-04 20:23 | Outpatient (CLI) | payer MEDICARE, BC, SELFPAY | LOC: SL 20:26 | PROVIDERS: PCP Nurse Practitioner Family; Visit Provider Specialist | DX: G47.33 Obstructive sleep apnea (adult) (pediatric) (principal) | CPT/HCPCS: 95810 ==

== ENCOUNTER 2024-04-06 07:49 | Day surgery (SDC) | payer MEDICARE, BC, SELFPAY ==
[2024-04-06] VITALS (7 sets, daily range): BP systolic 107–159; BP diastolic 66–96; PULSE 63–74; RESP 18–20; O2SAT 85–96; BMI 31.2
--- NOTE | 2024-04-06 07:03 | IR_ITS ---
APPROVED REPORT Patient Location: Outpatient Furniture Assembler: Lenard Barrios RT (R) PROCEDURES Right heart catheterization INDICATION Dyspnea, Pulmonary hypertension, Suspect atrial septal defect Informed consent was obtained prior to the procedure. COMPLICATIONS none Estimated Blood Loss: less than 10ml TECHNIQUE One percent lidocaine was used to anesthetize the right anterior aspect of the neck. A concrete curer needle was used to identify the right internal jugular vein. Following this a larger cannulation needle was used to cannulate the right internal jugular vein and a wire was passed into the vein. Prior to the 7 Nepalese sheath being inserted the wire was confirmed under fluoroscopic guidance to be in the inferior vena cava. A 7 [place] sheath was introduced and a [place] catheter was floated using hemodynamic waveforms in the pulmonary artery, right ventricle , and right atrium. Saturations were obtained in the pulmonary artery and the right atrium. At the end of the procedure the patient was transferred to the postop holding area in stable condition for sheath removal. ANGIOGRAPHIC RESULTS Superior vena cava saturation 79% Inferior vena cava saturation 83% Right atrial saturation 78% Right ventricular saturation 78% Pulmonary artery saturation 78% Aortic saturation 96% Right atrial pressure 12 mmHg Right ventricular pressure 47/12 mmHg Pulmonary artery pressure 45/25 mmHg Pulmonary artery occlusion pressure 20 mmHg Hemoglobin 14 Cardiac output 6.3 Cardiac index 3.7 IMPRESSION No evidence of intracardiac shunt Moderate pulmonary hypertension Elevated left-sided filling pressures consistent with diastolic dysfunction PLAN 1. Patient will benefit from additional diuresis Electronically signed by : Santos Painter MD 04/06/2024 11:21:26
[2024-04-06 08:31] LABS: Basophils # 0.1 K/mm3 (0-0.2); Basophils % 1.3 % (0.1-2.0); Chloride 109 mmol/L (98-107); Eosinophils # 0.6 K/mm3 (0.0-0.4); Eosinophils % 8.8 % (0.1-12.0); Hematocrit 42.1 % (37.0-47.0); Hemoglobin 14.4 g/dL (12.2-16.2); Lymphocytes # 1.8 K/mm3 (0.7-4.5); Lymphocytes % 25.2 % (10-50); Mean Corpuscular HGB Conc 34.2 g/dL (31.8-35.4); Mean Corpuscular Hemoglobin 31.3 pg (27.0-31.2); Mean Corpuscular Volume 91.5 fl (81-99); Mean Platelet Volume 7.5 fl (7.4-10.4); Monocytes # 0.4 K/mm3 (0.1-1.0); Monocytes % 6.1 % (1.7-9.3); Neutrophils # 4.2 K/mm3 (1.8-7.8); Neutrophils % 58.7 % (37.0-80.0); Platelet Count 249 K/mm3 (142-424); Sodium 140 mmol/L (136-145); White Blood Count 7.2 K/mm3 (4.8-10.8)
[2024-04-06 08:32] LABS: Potassium 3.9 mmoL/L (3.5-5.1)
[2024-04-06 08:34] LABS: Blood Urea Nitrogen 14 mg/dl (7-17); Creatinine Clearance Estimated 59 mL/min (50-200); Estimated Glomerular Filt Rate 99 ml/min (>60); GFR (African American) 119 ML/MIN (>60)
[2024-04-06 08:35] LABS: Anion Gap 10.9 mEq/L (5-15); Calcium 8.9 mg/dl (8.4-10.2); Carbon Dioxide 24 mmol/L (22.0-30.0); Glucose 123 mg/dl (74-100)
[2024-04-06] MEDS: LIDOCAINE 1% 10ML MDV 20 ML IJ (10:02)
[2024-04-06] MEDS: 0.9 % SODIUM CHLORIDE 500 ML 25 ML IV (10:02)
[2024-04-06] MEDS: diphenhydrAMINE 50MG/ML VIAL 50 MG IV (10:02)
[2024-04-06] MEDS: HEPARIN 1,000 UNITS/500ML NS (CATH LAB) 3000 UNIT IV (10:03)
[2024-04-06] MEDS: MIDAZOLAM HCL 1MG/1ML 5ML VIAL 1 MG IV (10:54)
[2024-04-06] MEDS: FENTANYL 100MCG/2ML VIAL 50 MCG IV (10:55)
[2024-04-06 12:29] LABS: CATHL Arterial O2 SAT 78.4 % (90-100)
[2024-04-06 12:30] LABS: CATHL Venous O2 SAT 78.7 % (75-80)
== END 2024-04-06 12:24 | disposition home or self-care (01) ==
PROVIDERS: PCP Nurse Practitioner Family; Visit Provider Internal Medicine
DX: Q24.8 Other specified congenital malformations of heart (principal); R06.00 Dyspnea, unspecified; I10 Essential (primary) hypertension; I27.20 Pulmonary hypertension, unspecified; F17.210 Nicotine dependence, cigarettes, uncomplicated; Z79.899 Other long term (current) drug therapy
CPT/HCPCS: 80048; 82810; 85025; 93451; 99152; C1894; J1200; J1644; J2250; J3010

== ENCOUNTER 2024-04-10 15:03 | Outpatient (POV) | payer MEDICARE, BC, SELFPAY ==
[2024-04-10 15:43] VITALS: BP 97/66; PULSE 74; RESP 16; O2SAT 93; BMI 31.0
--- NOTE | 2024-04-10 16:32 | A.OFFVIS_ITS ---
[facility] Disclaimer: The information contained in this section may have been updated after the patient was seen, as this information can be updated by other users. Medical History Mediastinal lymphadenopathy Smoking greater than 30 pack years Fibrosis of lung Hilar lymphadenopathy Lung nodule COPD mixed type Dyspnea on exertion Interatrial cardiac shunt Fracture of toe Contusion of right forearm Right forearm pain Establishing care with new doctor, encounter for Shingles Prolapse of uterus Strain of mid-back Dermatitis Urinary tract infection Urinary problem Sinusitis Acute bronchitis UTI (urinary tract infection) Immunization due Allergic bronchitis URI (upper respiratory infection) Surgical History Hx of cholecystectomy History of tubal ligation Family History Mother Parkinson disease Dementia Father Stroke Brother Cancer lung cancer- 2 brothers Brother Crohn's disease two brothers Social History (Updated 04/06/24 @ 08:23 by Sabrina Brush RN) Smoking Status: Current every day smoker tobacco type: cigarettes packs per day: 1 second hand exposure: Yes alcohol intake: never substance use type: denies use current occupational status: other Travel in the last 8 weeks: None household members: family housing: house marital status: number of children: 2 number of grandchildren: 4 PM Subjective & Objective Subjective Subjective:: Patient is a pleasant 69-year-old female who presents today for follow-up. Today she rates her pain a 0 out of 10. She states overall she is still been doing well from her bilateral SI injections. Patient states that she will occasionally have pain more so on the right side with certain positions such as twisting. She denies any new falls or injuries. Patient does state that she ended up having to have a heart stent last week and was diagnosed with CHF and is now on Lasix. Patient states they are still trying to figure out what all is going on. Patient is currently managed from our office tizanidine 4 mg 3 times a day. Patient denies any side effects to this medication. Her Jay has been reviewed and is appropriate. Review of Systems: General: No recent weight changes, no fever, no sleep disturbances Respiratory: No cough, no shortness of air, no recurring pulmonary infections Cardiovascular/peripheral vascular: No chest pain, no palpitations, no edema, no shortness of breath Gastrointestinal: No new onset incontinence, normal bowel movements reported Genitourinary: No new onset incontinence Musculoskeletal: Low back pain Psychiatric: [Normal mood/affect] Neurological: [Denies weakness in extremities], [denies balance issues] Pain at rest (0-10 scale): 0 Objective Objective:: Physical Exam: General: Alert and oriented x3, no acute distress, pleasant and cooperative Lungs: Respirations even and unlabored, symmetrical chest expansion Eyes: PERRL Musculoskeletal: Flexion and extension of lumbar [spine] somewhat guarded secondary to pain, [antalgic gait noted] Neurological: Speech clear, no gross sensory deficit Has patient had previous pain injection?: No Conservative treatment options previously tried: Home exercise plan Length of treatment: Longer than 6 Meds Home Medications and Allergies Home Medications ?Medication ?Instructions ?Recorded ?Confirmed ?Type docusate sodium 100 mg capsule 100 mg PO DAILY PRN BOWELS 03/08/23 04/10/24 History (Colace) carvedilol 6.25 mg tablet 6.25 mg PO BID #180 tabs 12/13/23 04/10/24 Rx sertraline 50 mg tablet 50 mg PO QHS #90 tabs 12/13/23 04/10/24 Rx buspirone 10 mg tablet 10 mg PO TID #270 tabs 01/10/24 04/10/24 Rx cetirizine 10 mg tablet (Zyrtec) 10 mg PO DAILY #90 tabs 01/10/24 04/10/24 Rx fluticasone fur. 100 mcg-umeclid 1 inh inhalation DAILY #60 ea 01/10/24 04/10/24 Rx 62.5 mcg-vilant 25 mcg inhalat.powder (Trelegy Ellipta) guaifenesin 600 mg tablet, 600 mg PO Q12H PRN congestion #180 01/10/24 04/10/24 Rx extended release 12 hr tabs nicotine 21 mg/24 hr daily 1 patch transdermal Q24H #28 ea 01/10/24 04/10/24 Rx transdermal patch cholecalciferol (vitamin D3) 50 50 mcg PO DAILY 01/14/24 04/10/24 History mcg (2,000 unit) capsule albuterol sulfate 90 mcg/actuation 2 puff inhalation Q4-6H PRN 01/31/24 04/10/24 Rx aerosol inhaler (Ventolin HFA) shortness of breath or wheezing #6.7 grams tizanidine 4 mg tablet (Zanaflex) 4 mg PO TID #90 tabs 03/13/24 04/10/24 Rx ipratropium 0.5 mg-albuterol 3 mg 3 ml inhalation Q8H 3 months #540 03/29/24 04/10/24 Rx (2.5 mg base)/3 mL nebulization mL soln budesonide 0.5 mg/2 mL suspension 0.5 mg (2 mL) inhalation BID #360 04/03/24 04/10/24 Rx for nebulization (Pulmicort) mL furosemide 40 mg tablet (Lasix) 40 mg PO DAILY #30 tabs 04/06/24 04/10/24 Rx spironolactone 100 mg tablet 100 mg PO DAILY #30 tabs 04/06/24 04/10/24 Rx (Aldactone) New Prescriptions to Start Prescriptions: Allergies Allergy/AdvReac Type Severity Reaction Status Date / Time codeine Allergy Mild Anxiety Verified 04/06/24 08:28 Assessment and Plan *Assessment and plan (1) Degenerative disc disease, lumbar: Status: Acute Category: Medical Code(s): M51.36 - Other intervertebral disc degeneration, lumbar region (2) Bilateral sacroiliitis: Status: Acute Category: Medical Code(s): M46.1 - Sacroiliitis, not elsewhere classified Plan Patient continues to have significant improvement following her SI injections and does not require any additional interventions at this time. Patient will return to clinic in 2 months for reevaluation of symptoms and plan of care. I will also send in refills on her tizanidine. Patient has been instructed to contact the clinic with any concerns before the next appointment. Dr. Muñiz has reviewed this note and agrees with this plan of care. This note was dictated using voice recognition software and make contain errors or omissions. All injections are used with Lidocaine or Bupivacaine and Depo Medrol.
== END 2024-04-10 23:59 | disposition home or self-care (01) ==
PROVIDERS: PCP Nurse Practitioner Family; Visit Provider Nurse Practitioner Family
DX: M46.1 Sacroiliitis, not elsewhere classified; M51.369 Other intervertebral disc degeneration, lumbar region without mention of lumbar back pain or lower extremity pain; F17.210 Nicotine dependence, cigarettes, uncomplicated; Z95.5 Presence of coronary angioplasty implant and graft; Z79.899 Other long term (current) drug therapy
CPT/HCPCS: 99212; G0463

== ENCOUNTER 2024-05-01 12:24 | Outpatient (CLI) | payer MEDICARE, BC, SELFPAY ==
[2024-05-01 16:51] LABS: Anion Gap 16.4 mEq/L (5-15); Blood Urea Nitrogen 20 mg/dl (7-17); Calcium 10.2 mg/dl (8.4-10.2); Carbon Dioxide 22 mmol/L (22.0-30.0); Chloride 101 mmol/L (98-107); Estimated Glomerular Filt Rate 55 ml/min (>60); GFR (African American) 66 ML/MIN (>60); Glucose 93 mg/dl (74-100); Magnesium 2.3 mg/dl (1.6-2.3); Potassium 5.4 mmoL/L (3.5-5.1); Sodium 134 mmol/L (136-145)
== END 2024-05-01 23:59 | disposition home or self-care (01) ==
LOC: LAB.DROPOF 05-02 12:24
PROVIDERS: PCP Nurse Practitioner Family; Visit Provider Nurse Practitioner Family
DX: I51.89 Other ill-defined heart diseases (principal); R00.0 Tachycardia, unspecified; I10 Essential (primary) hypertension
CPT/HCPCS: 80048; 83735

== ENCOUNTER 2024-05-22 15:24 | Outpatient (CLI) | payer MEDICARE, BC, SELFPAY ==
[2024-05-22 16:03] LABS: Chloride 103 mmol/L (98-107)
[2024-05-22 16:04] LABS: Albumin Level 5.1 g/dl (3.5-5.0); Potassium 4.7 mmoL/L (3.5-5.1); Sodium 137 mmol/L (136-145)
[2024-05-22 16:06] LABS: Blood Urea Nitrogen 31 mg/dl (7-17)
[2024-05-22 16:07] LABS: Alanine Aminotransferase 32 U/L (12-78); Alkaline Phosphatase 92 U/L (38-126); Aspartate Amino Transferase 33 U/L (14-36); Bilirubin,Direct 0.3 mg/dl (0.0-0.4); Bilirubin,Total 0.9 mg/dl (0.2-1.3); Bilirubin,Unconjugated 0.6 mg/dL (0.0-1.1); Calcium 10.6 mg/dl (8.4-10.2); Carbon Dioxide 18 mmol/L (22.0-30.0); Cholesterol 225 mg/dl (140-200); Glucose 109 mg/dl (74-100); Magnesium 2.3 mg/dl (1.6-2.3); Total Protein,Serum 9.7 g/dl (6.3-8.2); Triglycerides 394 mg/dl (30-150)
[2024-05-22 16:08] LABS: Estimated Glomerular Filt Rate 55 ml/min (>60); GFR (African American) 66 ML/MIN (>60); HDL Cholesterol 36 mg/dl (40-60)
[2024-05-22 16:10] LABS: Anion Gap 20.7 mEq/L (5-15); Bilirubin,Indirect 0.6 mg/dL (0.0-0.9); Chol/HDL Ratio 6.3 (1-3.5); VLDL Cholesterol 79 mg/dL (0-40)
[2024-05-22 16:19] LABS: Direct LDL Cholesterol 119.66 mg/dL (100-129)
[2024-05-22 16:22] LABS: Basophils # 0.2 K/mm3 (0-0.2); Basophils % 1.4 % (0.1-2.0); Eosinophils # 0.4 K/mm3 (0.0-0.4); Eosinophils % 3.7 % (0.1-12.0); Hemoglobin 17.1 g/dL (12.2-16.2); Lymphocytes # 2.5 K/mm3 (0.7-4.5); Lymphocytes % 22.1 % (10-50); Mean Corpuscular HGB Conc 34.2 g/dL (31.8-35.4); Mean Corpuscular Hemoglobin 32.5 pg (27.0-31.2); Mean Platelet Volume 7.5 fl (7.4-10.4); Monocytes # 0.8 K/mm3 (0.1-1.0); Monocytes % 6.5 % (1.7-9.3); Neutrophils # 7.6 K/mm3 (1.8-7.8); Neutrophils % 66.3 % (37.0-80.0); Platelet Count 370 K/mm3 (142-424); Red Blood Count 5.26 M/mm3 (4.20-5.40); Red Cell Distribution Width 13.4 % (11.5-17.5); White Blood Count 11.5 K/mm3 (4.8-10.8)
[2024-05-22 16:24] LABS: Free T4 (Free Thyroxine) 0.93 ng/dl (0.78-2.19)
[2024-05-22 16:37] LABS: Thyroid Stimulating Hormone 0.17 uIU/mL (0.465-4.68)
== END 2024-05-22 23:59 | disposition home or self-care (01) ==
LOC: LAB 15:26
PROVIDERS: PCP Nurse Practitioner Family; Visit Provider Internal Medicine
DX: I10 Essential (primary) hypertension (principal); I50.30 Unspecified diastolic (congestive) heart failure; I51.89 Other ill-defined heart diseases; R06.00 Dyspnea, unspecified; R53.83 Other fatigue
CPT/HCPCS: 36415; 80048; 80061; 80076; 83735; 84439; 84443; 85025

== ENCOUNTER 2024-06-02 11:24 | Outpatient (POV) | payer MEDICARE, BC, SELFPAY ==
--- NOTE | 2024-06-02 12:16 | EXP.PAIN.SOA ---
[facility] Disclaimer: The information contained in this section may have been updated after the patient was seen, as this information can be updated by other users. Medical History Coronary artery calcification seen on CT scan (HFpEF) heart failure with preserved ejection fraction Mediastinal lymphadenopathy Smoking greater than 30 pack years Fibrosis of lung Hilar lymphadenopathy Lung nodule COPD mixed type Dyspnea on exertion Interatrial cardiac shunt Fracture of toe Contusion of right forearm Right forearm pain Establishing care with new doctor, encounter for Shingles Prolapse of uterus Strain of mid-back Dermatitis Urinary tract infection Urinary problem Sinusitis Acute bronchitis UTI (urinary tract infection) Immunization due Allergic bronchitis URI (upper respiratory infection) Surgical History Hx of cholecystectomy History of tubal ligation Family History Mother Parkinson disease Dementia Father Stroke Brother Cancer lung cancer- 2 brothers Brother Crohn's disease two brothers Social History Smoking Status: Current every day smoker tobacco type: cigarettes packs per day: 1 second hand exposure: Yes alcohol intake: never substance use type: denies use current occupational status: other Travel in the last 8 weeks: None household members: family housing: house marital status: number of children: 2 number of grandchildren: 4 PM Subjective & Objective Subjective Subjective:: Patient is a pleasant 69-year-old female who presents today for 3-month follow-up and medication refill. Today she rates her pain a 6 out of 10. She denies any new trauma or injury. She does state that she has been experiencing more pain in her low back across her bilateral hips like what it had been. Patient does feel like her last injections have officially worn off. She states it is an aching, throbbing sensation that does interfere with her ability perform activities of daily living such as cooking and cleaning. Patient did previously get SI injections on 02/15/2024 that did provide 90% relief and lasted more than 3 months. Patient states that she did have overall improved function and was able to do more with these injections. Patient does state that she feels like she is needing these again. Patient did also have methocarbamol 500 mg 3 times daily called in between her last visit due to having tizanidine being out of stock. Patient does state that she felt like this actually did do better overall for her. Her Jay has been reviewed and is appropriate. Review of Systems: General: No recent weight changes, no fever, no sleep disturbances Respiratory: No cough, no shortness of air, no recurring pulmonary infections Cardiovascular/peripheral vascular: No chest pain, no palpitations, no edema, no shortness of breath Gastrointestinal: No new onset incontinence, normal bowel movements reported Genitourinary: No new onset incontinence Musculoskeletal: Low back pain, bilateral hip pain Psychiatric: [Normal mood/affect] Neurological: [Denies weakness in extremities], [denies balance issues] Pain at rest (0-10 scale): 6 Objective Objective:: Physical Exam: General: Alert and oriented x3, no acute distress, pleasant and cooperative Lungs: Respirations even and unlabored, symmetrical chest expansion Eyes: PERRL Musculoskeletal: Flexion and extension of lumbar [spine] somewhat guarded secondary to pain, [antalgic gait noted] point tenderness along bilateral SIs with positive bilateral Radhika's, Brenda's, Gaenslen's, compression and distraction exam Neurological: Speech clear, no gross sensory deficit Has patient had previous pain injection?: No Conservative treatment options previously tried: Home exercise plan Length of treatment: Longer than 12 weeks Meds Home Medications and Allergies Home Medications ?Medication ?Instructions ?Recorded ?Confirmed ?Type docusate sodium 100 mg capsule 100 mg PO DAILY PRN BOWELS 03/08/23 05/22/24 History (Colace) carvedilol 6.25 mg tablet 6.25 mg PO BID #180 tabs 12/13/23 05/22/24 Rx sertraline 50 mg tablet 50 mg PO QHS #90 tabs 12/13/23 05/22/24 Rx buspirone 10 mg tablet 10 mg PO TID #270 tabs 01/10/24 05/22/24 Rx cetirizine 10 mg tablet (Zyrtec) 10 mg PO DAILY #90 tabs 01/10/24 05/22/24 Rx fluticasone fur. 100 mcg-umeclid 1 inh inhalation DAILY #60 ea 01/10/24 05/22/24 Rx 62.5 mcg-vilant 25 mcg inhalat.powder (Trelegy Ellipta) guaifenesin 600 mg tablet, 600 mg PO Q12H PRN congestion #180 01/10/24 05/22/24 Rx extended release 12 hr tabs nicotine 21 mg/24 hr daily 1 patch transdermal Q24H #28 ea 01/10/24 05/22/24 Rx transdermal patch cholecalciferol (vitamin D3) 50 50 mcg PO DAILY 01/14/24 05/22/24 History mcg (2,000 unit) capsule albuterol sulfate 90 mcg/actuation 2 puff inhalation Q4-6H PRN 01/31/24 05/22/24 Rx aerosol inhaler (Ventolin HFA) shortness of breath or wheezing #6.7 grams furosemide 40 mg tablet (Lasix) 40 mg PO DAILY #30 tabs 04/06/24 05/22/24 Rx spironolactone 100 mg tablet 100 mg PO DAILY #30 tabs 04/06/24 05/22/24 Rx (Aldactone) tizanidine 4 mg tablet (Zanaflex) 4 mg PO TID #90 tabs 04/10/24 05/22/24 Rx dapagliflozin propanediol 10 mg 10 mg PO DAILY #30 tabs 04/20/24 05/22/24 Rx tablet (Farxiga) methocarbamol 500 mg tablet 500 mg PO TID #90 tabs 05/16/24 05/22/24 Rx semaglutide (weight loss) 0.25 0.25 mg (0.5 mL) SQ Q7D #2 mL 05/22/24 05/22/24 Rx mg/0.5 mL subcutaneous pen injector (Wegovy) New Prescriptions to Start Prescriptions: Allergies Allergy/AdvReac Type Severity Reaction Status Date / Time codeine Allergy Mild Anxiety Verified 05/22/24 14:24 Assessment and Plan *Assessment and plan (1) Bilateral sacroiliitis: Status: Acute Category: Medical Code(s): M46.1 - Sacroiliitis, not elsewhere classified Plan Patient is experiencing worsening pain along the low back and bilateral hips. They did have limited range of motion of the lumbar spine along with point tenderness along bilateral SI joints and a positive bilateral Radhika's, Brenda's, Gaenslen's, compression and distraction exam. I did discuss with the patient that I do believe they would benefit from bilateral SI injections. Risk and benefits were discussed with the patient and they would like to proceed forward with this option. Patient has tried and failed conservative therapy including continued at home stretching exercise for longer than 12 weeks. Patient will be scheduled for bilateral SI injections under fluoroscopy. Patient did previously have her first set of SI injections back in January that did provide 90% improvement and lasted more than 3 months. I will also refill the patient's methocarbamol and provide a 3-month supply of this medication. Patient has been instructed to contact the clinic with any concerns before the next appointment. Dr. Muñiz has reviewed this note and agrees with this plan of care. This note was dictated using voice recognition software and make contain errors or omissions. All injections are used with Lidocaine or Bupivacaine and Depo Medrol.
[2024-06-02 13:19] VITALS: BP 100/63; PULSE 79; RESP 16; O2SAT 91; BMI 28.5
== END 2024-06-02 23:59 | disposition home or self-care (01) ==
PROVIDERS: PCP Nurse Practitioner Family; Visit Provider Nurse Practitioner Family
DX: M46.1 Sacroiliitis, not elsewhere classified (principal); F17.210 Nicotine dependence, cigarettes, uncomplicated; Z73.89 Other problems related to life management difficulty; Z79.899 Other long term (current) drug therapy
CPT/HCPCS: 99212; G0463

== ENCOUNTER 2024-06-16 10:16 | Outpatient (CLI) | payer MEDICARE, BC, SELFPAY ==
[2024-06-16 11:02] LABS: Anion Gap 14.3 mEq/L (5-15); Blood Urea Nitrogen 23 mg/dl (7-17); Calcium 9.8 mg/dl (8.4-10.2); Carbon Dioxide 21 mmol/L (22.0-30.0); Chloride 106 mmol/L (98-107); Estimated Glomerular Filt Rate 55 ml/min (>60); GFR (African American) 66 ML/MIN (>60); Glucose 165 mg/dl (74-100); Potassium 4.3 mmoL/L (3.5-5.1); Sodium 137 mmol/L (136-145)
== END 2024-06-16 23:59 | disposition home or self-care (01) ==
LOC: LAB 10:19
PROVIDERS: Physician Assistant; PCP Nurse Practitioner Family; Visit Provider Internal Medicine
DX: I50.30 Unspecified diastolic (congestive) heart failure (principal)
CPT/HCPCS: 36415; 80048

== ENCOUNTER 2024-07-27 12:58 | Outpatient (CLI) | payer MEDICARE, BC, SELFPAY ==
[2024-07-27] MEDS: ALBUTEROL 0.083% 2.5 MG/3 ML NEB IH (14:07)
== END 2024-07-27 23:59 | disposition home or self-care (01) ==
LOC: RT 12:58
PROVIDERS: PCP Nurse Practitioner Family; Visit Provider Internal Medicine Pulmonary Disease
DX: R06.09 Other forms of dyspnea (principal); J44.9 Chronic obstructive pulmonary disease, unspecified
CPT/HCPCS: 94060; 94618; J7613

== ENCOUNTER 2024-08-01 12:53 | Day surgery (SDC) | payer MEDICARE, BC, SELFPAY ==
[2024-08-01 13:15] VITALS: BP 104/57; PULSE 67; RESP 16; TEMP 36.5; O2SAT 90; BMI 29.2
[2024-08-01 13:20] VITALS: BP 117/63; PULSE 72; RESP 18; O2SAT 97
[2024-08-01] MEDS: LIDOCAINE 1% 5ML PF VIAL 5 ML (13:21)
[2024-08-01] MEDS: BUPIVACAINE 0.25% 10ML INJ 25 MG IJ (13:21)
[2024-08-01] MEDS: methylPREDNISolone ACETATE 80MG/ML VIAL 80 MG (13:21)
--- NOTE | 2024-08-01 13:33 | P.PCN_ITS ---
Procedure Date: 08/01/24 Time: 13:30 Anesthesiologist:: Roberto Sousa CRNA Complications:: None Pre-procedure Diagnosis:: Bilateral sacroiliitis Post-procedure Diagnosis:: Same Indications for Procedure:: Patient is a pleasant 69-year-old female who comes our clinic today for bilateral sacroiliac joint injections cortisone and local anesthetic. Patient describes low lumbar back pain off the midline bilaterally. Bilateral posterior hip pain. Also, she reports difficulty transitioning from sitting to standing. She rates her pain 7/10. Procedure Details:: Procedure: Bilateral sacroiliac joint injections under fluoroscopy Informed consent was obtained and the risks and benefits of the procedure were explained to the patient.~ The patient was taken to the procedure room and noninvasive monitors were placed including a noninvasive blood pressure cuff and pulse oximeter.~ The patient was placed prone on the procedure table. Both hips were cleansed using Betadine as a cleansing solution. C-arm fluoroscopy was used to view the right sacroiliac joint.~ The skin and subcutaneous tissues were anesthetized using lidocaine 1.5% and a 25-gauge needle.~ After this, a 22-gauge spinal needle was inserted under fluoroscopic guidance into the inferior aspect of the right sacroiliac joint.~ Omnipaque dye was injected and good spread was seen throughout the joint.~ After this, approximately 5 mL of bupivacaine, 0.25% and Depo-Medrol, 40 mg was incrementally injected into the right sacroiliac joint. We then moved to the left sacroiliac joint.~ The skin and subcutaneous tissues were anesthetized using lidocaine 1.5% and a 25-gauge needle.~ After this, a 22- gauge spinal needle was inserted under fluoroscopic guidance into the inferior aspect of the left sacroiliac joint.~ Omnipaque dye was injected and good spread was seen throughout the joint. After this, approximately 5 mL of bupivacaine, 0.25% and Depo-Medrol, 40 mg was incrementally injected into the left sacroiliac joint.~ The patient tolerated the procedure well with no complications. The patient was observed in the Pain Clinic and then was discharged home neurologically intact. Plan and Disposition:: Patient was discharged without incident.
[2024-08-01 13:34] VITALS: BP 119/58; PULSE 58; RESP 16; TEMP 36.6; O2SAT 90
== END 2024-08-01 13:34 | disposition home or self-care (01) ==
PROVIDERS: PCP Nurse Practitioner Family; Visit Provider Nurse Anesthetist, Certified Registered
DX: M46.1 Sacroiliitis, not elsewhere classified (principal)
CPT/HCPCS: 27096; G0260; J1010

== ENCOUNTER 2024-08-21 14:42 | Outpatient (POV) | payer MEDICARE, BC, SELFPAY ==
[2024-08-21 14:49] VITALS: BP 119/74; PULSE 88; RESP 16; O2SAT 94; BMI 29.2
--- NOTE | 2024-08-21 16:34 | A.OFFVIS_ITS ---
[facility] Disclaimer: The information contained in this section may have been updated after the patient was seen, as this information can be updated by other users. Medical History Coronary artery calcification seen on CT scan (HFpEF) heart failure with preserved ejection fraction Mediastinal lymphadenopathy Smoking greater than 30 pack years Fibrosis of lung Hilar lymphadenopathy Lung nodule COPD mixed type Dyspnea on exertion Interatrial cardiac shunt Fracture of toe Contusion of right forearm Right forearm pain Establishing care with new doctor, encounter for Shingles Prolapse of uterus Strain of mid-back Dermatitis Urinary tract infection Urinary problem Sinusitis Acute bronchitis UTI (urinary tract infection) Immunization due Allergic bronchitis URI (upper respiratory infection) Surgical History Hx of cholecystectomy History of tubal ligation Family History Mother Parkinson disease Dementia Father Stroke Brother Cancer lung cancer- 2 brothers Brother Crohn's disease two brothers Social History Smoking Status: Former smoker second hand exposure: Yes alcohol intake: never substance use type: denies use current occupational status: other Travel in the last 8 weeks: None household members: family housing: house marital status: number of children: 2 number of grandchildren: 4 PM Subjective & Objective Subjective Subjective:: Patient is a pleasant 69-year-old female who presents today for follow-up of bilateral SI injections on 08/01/2024. Today she rates her pain a 0 out of 10. She states that she has had 100% relief following this injection and feels like it is still working well. Patient states she has been able to increase her activity with overall decreased pain. Patient is currently managed with tizanidine 4 mg 3 times daily. Patient did previously have to go on methocarbamol temporarily while the tizanidine was on backorder however did get more relief with the tizanidine and our last visit was given a 3-month supply. Patient Jay has been reviewed. Review of Systems: General: No recent weight changes, no fever, no sleep disturbances Respiratory: No cough, no shortness of air, no recurring pulmonary infections Cardiovascular/peripheral vascular: No chest pain, no palpitations, no edema, no shortness of breath Gastrointestinal: No new onset incontinence, normal bowel movements reported Genitourinary: No new onset incontinence Musculoskeletal: Low back pain Psychiatric: [Normal mood/affect] Neurological: [Denies weakness in extremities], [denies balance issues] Pain at rest (0-10 scale): 0 Objective Objective:: Physical Exam: General: Alert and oriented x3, no acute distress, pleasant and cooperative Lungs: Respirations even and unlabored, symmetrical chest expansion Eyes: PERRL Musculoskeletal: Flexion and extension of lumbar [spine] somewhat guarded secondary to pain, [antalgic gait noted] Neurological: Speech clear, no gross sensory deficit Has patient had previous pain injection?: Yes Percent improvement in pain since last injection: 100% Conservative treatment options previously tried: Home exercise plan Length of treatment: Longer than 12 weeks Meds Home Medications and Allergies Home Medications ?Medication ?Instructions ?Recorded ?Confirmed ?Type docusate sodium 100 mg capsule 100 mg PO DAILY PRN BOWELS 03/08/23 08/21/24 History (Colace) carvedilol 6.25 mg tablet 6.25 mg PO BID #180 tabs 12/13/23 08/21/24 Rx sertraline 50 mg tablet 50 mg PO QHS #90 tabs 12/13/23 08/21/24 Rx buspirone 10 mg tablet 10 mg PO TID #270 tabs 01/10/24 08/21/24 Rx cetirizine 10 mg tablet (Zyrtec) 10 mg PO DAILY #90 tabs 01/10/24 08/21/24 Rx fluticasone fur. 100 mcg-umeclid 1 inh inhalation DAILY #60 ea 01/10/24 08/21/24 Rx 62.5 mcg-vilant 25 mcg inhalat.powder (Trelegy Ellipta) guaifenesin 600 mg tablet, 600 mg PO Q12H PRN congestion #180 01/10/24 08/21/24 Rx extended release 12 hr tabs nicotine 21 mg/24 hr daily 1 patch transdermal Q24H #28 ea 01/10/24 08/21/24 Rx transdermal patch cholecalciferol (vitamin D3) 50 50 mcg PO DAILY 01/14/24 08/21/24 History mcg (2,000 unit) capsule albuterol sulfate 90 mcg/actuation 2 puff inhalation Q4-6H PRN 01/31/24 08/21/24 Rx aerosol inhaler (Ventolin HFA) shortness of breath or wheezing #6.7 grams dapagliflozin propanediol 10 mg 10 mg PO DAILY #30 tabs 04/20/24 08/21/24 Rx tablet (Farxiga) semaglutide (weight loss) 0.25 0.25 mg (0.5 mL) SQ Q7D #2 mL 05/22/24 08/21/24 Rx mg/0.5 mL subcutaneous pen injector (Wegovy) methocarbamol 500 mg tablet 500 mg PO TID #90 tabs 06/02/24 08/21/24 Rx empagliflozin 10 mg tablet 10 mg PO DAILY #90 tabs 07/10/24 08/21/24 Rx (Jardiance) tizanidine 4 mg tablet (Zanaflex) 4 mg PO TID #90 tabs 07/25/24 08/21/24 Rx furosemide 40 mg tablet (Lasix) 40 mg PO DAILY #30 tabs 07/31/24 08/21/24 Rx spironolactone 100 mg tablet 100 mg PO DAILY #30 tabs 07/31/24 08/21/24 Rx (Aldactone) New Prescriptions to Start Prescriptions: Allergies Allergy/AdvReac Type Severity Reaction Status Date / Time codeine Allergy Mild Anxiety Verified 07/27/24 15:17 Assessment and Plan *Assessment and plan (1) Bilateral sacroiliitis: Status: Acute Category: Medical Code(s): M46.1 - Sacroiliitis, not elsewhere classified Plan Patient has had significant improvement and does not require any additional injection therapy at this time. Patient will return to clinic in 6 weeks. Patient has been instructed to contact the clinic with any concerns before the next appointment. Dr. Muñiz has reviewed this note and agrees with this plan of care. This note was dictated using voice recognition software and make contain errors or omissions. All injections are used with Lidocaine, Bupivacaine and Depo Medrol. Occasionally urine drug screen is needed to verify patient's compliance with our office pain contract. This is ordered based off specific treatments related to chronic pain with the potential to abuse certain medications.
== END 2024-08-21 23:59 | disposition home or self-care (01) ==
LOC: SC.PAIN 14:44
PROVIDERS: PCP Nurse Practitioner Family; Visit Provider Nurse Practitioner Family
DX: M46.1 Sacroiliitis, not elsewhere classified (principal); Z87.891 Personal history of nicotine dependence
CPT/HCPCS: 99212; G0463

== ENCOUNTER 2024-09-18 14:02 | Outpatient (CLI) | payer MEDICARE, BC, SELFPAY ==
[2024-09-18 14:35] LABS: Basophils # 0.2 K/mm3 (0-0.2); Basophils % 1.5 % (0.1-2.0); Eosinophils # 0.4 K/mm3 (0.0-0.4); Eosinophils % 2.8 % (0.1-12.0); Hematocrit 48.3 % (37.0-47.0); Hemoglobin 16.3 g/dL (12.2-16.2); Lymphocytes # 2.4 K/mm3 (0.7-4.5); Lymphocytes % 18.9 % (10-50); Mean Corpuscular HGB Conc 33.7 g/dL (31.8-35.4); Mean Corpuscular Hemoglobin 31.7 pg (27.0-31.2); Mean Platelet Volume 9.6 fl (7.4-10.4); Monocytes % 7.7 % (1.7-9.3); Neutrophils # 8.7 K/mm3 (1.8-7.8); Neutrophils % 67.4 % (37.0-80.0); Platelet Count 330 K/mm3 (142-424); Red Blood Count 5.14 M/mm3 (4.20-5.40); Red Cell Distribution Width 12.1 % (11.5-17.5); White Blood Count 12.9 K/mm3 (4.8-10.8)
[2024-09-18 14:56] LABS: Albumin Level 4.9 g/dl (3.5-5.0); Chloride 107 mmol/L (98-107); Potassium 5.4 mmoL/L (3.5-5.1); Sodium 136 mmol/L (136-145)
[2024-09-18 14:58] LABS: Anion Gap 14.4 mEq/L (5-15); Bilirubin,Unconjugated 0.5 mg/dL (0.0-1.1); Blood Urea Nitrogen 32 mg/dl (7-17); Carbon Dioxide 20 mmol/L (22.0-30.0); Estimated Glomerular Filt Rate 40 ml/min (>60); GFR (African American) 49 ML/MIN (>60); Total Protein,Serum 8.5 g/dl (6.3-8.2)
[2024-09-18 14:59] LABS: Alanine Aminotransferase 32 U/L (12-78); Alkaline Phosphatase 120 U/L (38-126); Aspartate Amino Transferase 30 U/L (14-36); Bilirubin,Direct 0.1 mg/dl (0.0-0.4); Bilirubin,Indirect 0.6 mg/dL (0.0-0.9); Bilirubin,Total 0.7 mg/dl (0.2-1.3); Calcium 10.1 mg/dl (8.4-10.2); Chol/HDL Ratio 6.3 (1-3.5); Cholesterol 188 mg/dl (140-200); Glucose 148 mg/dl (74-100); HDL Cholesterol 30 mg/dl (40-60)
[2024-09-18 15:10] LABS: Direct LDL Cholesterol 54.43 mg/dL (100-129)
[2024-09-18 15:15] LABS: Free T4 (Free Thyroxine) 0.84 ng/dl (0.78-2.19)
[2024-09-18 15:29] LABS: Thyroid Stimulating Hormone 2.12 uIU/mL (0.465-4.68)
[2024-09-18 16:07] LABS: Triglycerides 598 mg/dl (30-150)
== END 2024-09-18 23:59 | disposition home or self-care (01) ==
LOC: LAB 14:04
PROVIDERS: PCP Nurse Practitioner Family; Visit Provider Internal Medicine
DX: I50.30 Unspecified diastolic (congestive) heart failure (principal); I10 Essential (primary) hypertension; R59.0 Localized enlarged lymph nodes; R06.09 Other forms of dyspnea
CPT/HCPCS: 36415; 80048; 80061; 80076; 84439; 84443; 85025

== ENCOUNTER 2024-10-02 14:25 | Outpatient (POV) | payer MEDICARE, BC, SELFPAY ==
[2024-10-02 15:03] VITALS: BP 103/56; PULSE 79; RESP 16; O2SAT 94; BMI 28.3
--- NOTE | 2024-10-02 15:06 | EXP.PAIN.SOA ---
[facility] Disclaimer: The information contained in this section may have been updated after the patient was seen, as this information can be updated by other users. Medical History Coronary artery calcification seen on CT scan (HFpEF) heart failure with preserved ejection fraction Mediastinal lymphadenopathy Smoking greater than 30 pack years Fibrosis of lung Hilar lymphadenopathy Lung nodule COPD mixed type Dyspnea on exertion Interatrial cardiac shunt Fracture of toe Contusion of right forearm Right forearm pain Establishing care with new doctor, encounter for Shingles Prolapse of uterus Strain of mid-back Dermatitis Urinary tract infection Urinary problem Sinusitis Acute bronchitis UTI (urinary tract infection) Immunization due Allergic bronchitis URI (upper respiratory infection) Surgical History Hx of cholecystectomy History of tubal ligation Family History Mother Parkinson disease Dementia Father Stroke Brother Cancer lung cancer- 2 brothers Brother Crohn's disease two brothers Social History Smoking Status: Former smoker second hand exposure: Yes alcohol intake: never substance use type: denies use current occupational status: other Travel in the last 8 weeks: None household members: family housing: house marital status: number of children: 2 number of grandchildren: 4 PM Subjective & Objective Subjective Subjective:: Patient is a pleasant 69-year-old female who presents today for 6-week follow-up. Today she rates her pain a 2 out of 10. Patient does state that she still has some hip pain more prominent on the right side however it is still very manageable. Patient denies any new injury or trauma. Patient did previously have her last SI injections back in July that did provide 100% relief and states that they do still seem like they are helping. Patient is managed with tizanidine 4 mg 3 times a day. Her Jay has been reviewed and is appropriate. Review of Systems: General: No recent weight changes, no fever, no sleep disturbances Respiratory: No cough, no shortness of air, no recurring pulmonary infections Cardiovascular/peripheral vascular: No chest pain, no palpitations, no edema, no shortness of breath Gastrointestinal: No new onset incontinence, normal bowel movements reported Genitourinary: No new onset incontinence Musculoskeletal: Low back pain, right hip pain Psychiatric: [Normal mood/affect] Neurological: [Denies weakness in extremities], [denies balance issues] Pain at rest (0-10 scale): 2 Objective Objective:: Physical Exam: General: Alert and oriented x3, no acute distress, pleasant and cooperative Lungs: Respirations even and unlabored, symmetrical chest expansion Eyes: PERRL Musculoskeletal: Flexion and extension of lumbar [spine] somewhat guarded secondary to pain, [antalgic gait noted] Neurological: Speech clear, no gross sensory deficit Has patient had previous pain injection?: No Conservative treatment options previously tried: Home exercise plan Length of treatment: Longer than 12-week Meds Home Medications and Allergies Home Medications ?Medication ?Instructions ?Recorded ?Confirmed ?Type docusate sodium 100 mg capsule 100 mg PO DAILY PRN BOWELS 03/08/23 10/02/24 History (Colace) carvedilol 6.25 mg tablet 6.25 mg PO BID #180 tabs 12/13/23 10/02/24 Rx sertraline 50 mg tablet 50 mg PO QHS #90 tabs 12/13/23 10/02/24 Rx buspirone 10 mg tablet 10 mg PO TID #270 tabs 01/10/24 10/02/24 Rx cetirizine 10 mg tablet (Zyrtec) 10 mg PO DAILY #90 tabs 01/10/24 10/02/24 Rx fluticasone fur. 100 mcg-umeclid 1 inh inhalation DAILY #60 ea 01/10/24 10/02/24 Rx 62.5 mcg-vilant 25 mcg inhalat.powder (Trelegy Ellipta) guaifenesin 600 mg tablet, 600 mg PO Q12H PRN congestion #180 01/10/24 10/02/24 Rx extended release 12 hr tabs nicotine 21 mg/24 hr daily 1 patch transdermal Q24H #28 ea 01/10/24 10/02/24 Rx transdermal patch cholecalciferol (vitamin D3) 50 50 mcg PO DAILY 01/14/24 10/02/24 History mcg (2,000 unit) capsule albuterol sulfate 90 mcg/actuation 2 puff inhalation Q4-6H PRN 01/31/24 10/02/24 Rx aerosol inhaler (Ventolin HFA) shortness of breath or wheezing #6.7 grams dapagliflozin propanediol 10 mg 10 mg PO DAILY #30 tabs 04/20/24 10/02/24 Rx tablet (Farxiga) methocarbamol 500 mg tablet 500 mg PO TID #90 tabs 06/02/24 10/02/24 Rx empagliflozin 10 mg tablet 10 mg PO DAILY #90 tabs 07/10/24 10/02/24 Rx (Jardiance) tizanidine 4 mg tablet (Zanaflex) 4 mg PO TID #90 tabs 07/25/24 10/02/24 Rx furosemide 40 mg tablet (Lasix) 40 mg PO DAILY #30 tabs 07/31/24 10/02/24 Rx tirzepatide 2.5 mg/0.5 mL 2.5 mg (0.5 mL) SQ WEEKLY #2.5 mL 09/18/24 10/02/24 Rx subcutaneous pen injector (Mounjaro) spironolactone 50 mg tablet 50 mg PO DAILY #90 tabs 09/20/24 10/02/24 Rx New Prescriptions to Start Prescriptions: Allergies Allergy/AdvReac Type Severity Reaction Status Date / Time codeine Allergy Mild Anxiety Verified 09/18/24 13:25 Assessment and Plan *Assessment and plan (1) Bilateral sacroiliitis: Status: Acute Category: Medical Code(s): M46.1 - Sacroiliitis, not elsewhere classified Plan Patient is still maintaining well from her last SI injections in July. Patient will return to clinic in 3 months. I will make sure that she has refills on her tizanidine. Patient agrees with this plan of care. Patient has been instructed to contact the clinic with any concerns before the next appointment. Dr. Muñiz has reviewed this note and agrees with this plan of care. This note was dictated using voice recognition software and make contain errors or omissions. All injections are used with Lidocaine, Bupivacaine and Depo Medrol. Occasionally urine drug screen is needed to verify patient's compliance with our office pain contract. This is ordered based off specific treatments related to chronic pain with the potential to abuse certain medications.
== END 2024-10-02 23:59 | disposition home or self-care (01) ==
PROVIDERS: PCP Nurse Practitioner Family; Visit Provider Nurse Practitioner Family
DX: M46.1 Sacroiliitis, not elsewhere classified (principal); Z87.891 Personal history of nicotine dependence; Z79.899 Other long term (current) drug therapy
CPT/HCPCS: 99212; G0463

== ENCOUNTER 2024-10-30 13:33 | Outpatient (POV) | payer MEDICARE, BC, SELFPAY ==
[2024-10-30 13:54] VITALS: BP 89/56; BP 96/58; PULSE 71; RESP 14; O2SAT 95; BMI 29.2
--- NOTE | 2024-10-30 14:13 | A.OFFVIS_ITS ---
[facility] Disclaimer: The information contained in this section may have been updated after the patient was seen, as this information can be updated by other users. Medical History Coronary artery calcification seen on CT scan (HFpEF) heart failure with preserved ejection fraction Mediastinal lymphadenopathy Smoking greater than 30 pack years Fibrosis of lung Hilar lymphadenopathy Lung nodule COPD mixed type Dyspnea on exertion Interatrial cardiac shunt Fracture of toe Contusion of right forearm Right forearm pain Establishing care with new doctor, encounter for Shingles Prolapse of uterus Strain of mid-back Dermatitis Urinary tract infection Urinary problem Sinusitis Acute bronchitis UTI (urinary tract infection) Immunization due Allergic bronchitis URI (upper respiratory infection) Surgical History Hx of cholecystectomy History of tubal ligation Family History Mother Parkinson disease Dementia Father Stroke Brother Cancer lung cancer- 2 brothers Brother Crohn's disease two brothers Social History Smoking Status: Former smoker second hand exposure: Yes alcohol intake: never substance use type: denies use current occupational status: other Travel in the last 8 weeks?: None household members: family housing: house marital status: number of children: 2 number of grandchildren: 4 PM Subjective & Objective Subjective Subjective:: Patient is a pleasant 69-year-old female who presents today for worsening pain. She does state the pain is a 5 out of 10 and denies any new falls. She does state that she feels like her last injection has officially worn off and she is having worsening back and hip pain. Patient does state that the right side is worse than the left however both are very bothersome. Patient does describe it as a fairly constant pain that does interfere with her ability perform activities of daily living such as cooking and cleaning. Patient did have her last SI injections in July that did provide 100% relief and have worked well up until the last little bit. Patient is interested in repeating these injections as they do provide significant improved function. Patient is prescribed tizanidine 4 mg 3 times a day and compounded cream from our office. She denies any side effects. Her Jay has been reviewed and is appropriate. Review of Systems: General: No recent weight changes, no fever, no sleep disturbances Respiratory: No cough, no shortness of air, no recurring pulmonary infections Cardiovascular/peripheral vascular: No chest pain, no palpitations, no edema, no shortness of breath Gastrointestinal: No new onset incontinence, normal bowel movements reported Genitourinary: No new onset incontinence Musculoskeletal: Low back pain, bilateral hip pain Psychiatric: [Normal mood/affect] Neurological: [Denies weakness in extremities], [denies balance issues] Pain at rest (0-10 scale): 5 Objective Objective:: Physical Exam: General: Alert and oriented x3, no acute distress, pleasant and cooperative Lungs: Respirations even and unlabored, symmetrical chest expansion Eyes: PERRL Musculoskeletal: Flexion and extension of lumbar [spine] somewhat guarded secondary to pain, [antalgic gait noted] point tenderness along bilateral SIs with positive bilateral Radhika's, Brenda's, Gaenslen's, compression and distraction exam Neurological: Speech clear, no gross sensory deficit Has patient had previous pain injection?: No Conservative treatment options previously tried: Home exercise plan Length of treatment: Longer than 12 weeks Meds Home Medications and Allergies Home Medications ?Medication ?Instructions ?Recorded ?Confirmed ?Type docusate sodium 100 mg capsule 100 mg PO DAILY PRN BOWELS 03/08/23 10/30/24 History (Colace) carvedilol 6.25 mg tablet 6.25 mg PO BID #180 tabs 12/13/23 10/30/24 Rx sertraline 50 mg tablet 50 mg PO QHS #90 tabs 12/13/23 10/30/24 Rx buspirone 10 mg tablet 10 mg PO TID #270 tabs 01/10/24 10/30/24 Rx cetirizine 10 mg tablet (Zyrtec) 10 mg PO DAILY #90 tabs 01/10/24 10/30/24 Rx fluticasone fur. 100 mcg-umeclid 1 inh inhalation DAILY #60 ea 01/10/24 10/30/24 Rx 62.5 mcg-vilant 25 mcg inhalat.powder (Trelegy Ellipta) guaifenesin 600 mg tablet, 600 mg PO Q12H PRN congestion #180 01/10/24 10/30/24 Rx extended release 12 hr tabs nicotine 21 mg/24 hr daily 1 patch transdermal Q24H #28 ea 01/10/24 10/30/24 Rx transdermal patch cholecalciferol (vitamin D3) 50 50 mcg PO DAILY 01/14/24 10/30/24 History mcg (2,000 unit) capsule albuterol sulfate 90 mcg/actuation 2 puff inhalation Q4-6H PRN 01/31/24 10/30/24 Rx aerosol inhaler (Ventolin HFA) shortness of breath or wheezing #6.7 grams dapagliflozin propanediol 10 mg 10 mg PO DAILY #30 tabs 04/20/24 10/30/24 Rx tablet (Farxiga) methocarbamol 500 mg tablet 500 mg PO TID #90 tabs 06/02/24 10/30/24 Rx empagliflozin 10 mg tablet 10 mg PO DAILY #90 tabs 07/10/24 10/30/24 Rx (Jardiance) furosemide 40 mg tablet (Lasix) 40 mg PO DAILY #30 tabs 07/31/24 10/30/24 Rx tirzepatide 2.5 mg/0.5 mL 2.5 mg (0.5 mL) SQ WEEKLY #2.5 mL 09/18/24 10/30/24 Rx subcutaneous pen injector (Mounjaro) spironolactone 50 mg tablet 50 mg PO DAILY #90 tabs 09/20/24 10/30/24 Rx tizanidine 4 mg tablet (Zanaflex) 4 mg PO TID #90 tabs 10/02/24 10/30/24 Rx New Prescriptions to Start Prescriptions: Allergies Allergy/AdvReac Type Severity Reaction Status Date / Time codeine Allergy Mild Anxiety Verified 09/18/24 13:25 Assessment and Plan *Assessment and plan (1) Bilateral sacroiliitis: Status: Acute Category: Medical Code(s): M46.1 - Sacroiliitis, not elsewhere classified Plan Patient is experiencing worsening pain along the low back and bilateral hips. They did have limited range of motion of the lumbar spine along with point tenderness along bilateral SI joints and a positive bilateral Radhika's, Brenda's, Gaenslen's, compression and distraction exam. I did discuss with the patient that I do believe they would benefit from bilateral SI injections. Risk and benefits were discussed with the patient and they would like to proceed forward with this option. Patient has tried and failed conservative therapy including continued at home stretching exercise for longer than 12 weeks. Patient has had this pain for longer than 6 months and has gotten significant relief with SI injections in the past. Her last injection was in July that did provide 100% relief and did provide almost 3 months improvement. This will be a therapeutic injection with less than 1 mL solution to be injected. Patient will be scheduled for bilateral SI injections under fluoroscopy. Patient has been instructed to contact the clinic with any concerns before the next appointment. Dr. Muñiz has reviewed this note and agrees with this plan of care. This note was dictated using voice recognition software and make contain errors or omissions. All injections are used with Lidocaine or Bupivacaine and dexamethasone.
== END 2024-10-30 23:59 | disposition home or self-care (01) ==
LOC: SC.PAIN 13:35
PROVIDERS: PCP Nurse Practitioner Family; Visit Provider Nurse Practitioner Family
DX: M46.1 Sacroiliitis, not elsewhere classified (principal); Z87.891 Personal history of nicotine dependence; Z73.89 Other problems related to life management difficulty
CPT/HCPCS: 99212; G0463

== ENCOUNTER 2024-11-21 12:01 | Day surgery (SDC) | payer MEDICARE, BC, SELFPAY ==
[2024-11-21 12:07] VITALS: BP 115/60; PULSE 62; RESP 16; TEMP 36.6; O2SAT 90; BMI 29.2
[2024-11-21] MEDS: BUPIVACAINE 0.25% 10ML INJ 25 MG IJ (12:16)
--- NOTE | 2024-11-21 12:16 | P.PCN_ITS ---
Procedure Date: 11/21/24 Time: 12:15 Anesthesiologist:: Roberto Sousa CRNA Complications:: None Pre-procedure Diagnosis:: Bilateral sacroiliitis Post-procedure Diagnosis:: Same Indications for Procedure:: Patient is a very pleasant 69-year-old female who comes our clinic today for bilateral sacroiliac joint injections cortisone local anesthetic. Patient describes low lumbar back pain off the midline bilaterally. Bilateral posterior hip pain. Difficulty transitioning from sitting to standing. Difficulty with ambulation. She rates her pain 7/10. Procedure Details:: Procedure: Bilateral sacroiliac joint injections under fluoroscopy Informed consent was obtained and the risks and benefits of the procedure were explained to the patient.~ The patient was taken to the procedure room and noninvasive monitors were placed including a noninvasive blood pressure cuff and pulse oximeter.~ The patient was placed prone on the procedure table. Both hips were cleansed using Betadine as a cleansing solution. C-arm fluoroscopy was used to view the right sacroiliac joint.~ The skin and subcutaneous tissues were anesthetized using lidocaine 1.5% and a 25-gauge needle.~ After this, a 22-gauge spinal needle was inserted under fluoroscopic guidance into the inferior aspect of the right sacroiliac joint.~ Omnipaque dye was injected and good spread was seen throughout the joint.~ After this, approximately 5 mL of bupivacaine, 0.25% and Depo-Medrol, 40 mg was incrementally injected into the right sacroiliac joint. We then moved to the left sacroiliac joint.~ The skin and subcutaneous tissues were anesthetized using lidocaine 1.5% and a 25-gauge needle.~ After this, a 22- gauge spinal needle was inserted under fluoroscopic guidance into the inferior aspect of the left sacroiliac joint.~ Omnipaque dye was injected and good spread was seen throughout the joint. After this, approximately 5 mL of bupivacaine, 0.25% and Depo-Medrol, 40 mg was incrementally injected into the left sacroiliac joint.~ The patient tolerated the procedure well with no complications. The patient was observed in the Pain Clinic and then was discharged home neurologically intact. Plan and Disposition:: Patient was discharged without incident.
[2024-11-21 12:17] VITALS: BP 101/56; PULSE 87; RESP 18; O2SAT 97
[2024-11-21] MEDS: LIDOCAINE 1% 5ML PF VIAL 5 ML (12:17)
[2024-11-21] MEDS: DEXAMETHASONE 10MG/ML 1ML VIAL 10 MG (12:17)
[2024-11-21 12:18] VITALS: BP 101/56; PULSE 87; RESP 18; O2SAT 97
[2024-11-21 12:22] VITALS: BP 108/71; PULSE 80; RESP 16; O2SAT 94
== END 2024-11-21 12:22 | disposition home or self-care (01) ==
PROVIDERS: PCP Nurse Practitioner Family; Visit Provider Nurse Anesthetist, Certified Registered
DX: M46.1 Sacroiliitis, not elsewhere classified (principal)
CPT/HCPCS: G0260; J1100

== ENCOUNTER 2024-12-11 14:27 | Outpatient (POV) | payer MEDICARE, BC, SELFPAY ==
--- NOTE | 2024-12-11 15:01 | A.OFFVIS_ITS ---
[facility] Disclaimer: The information contained in this section may have been updated after the patient was seen, as this information can be updated by other users. Medical History Coronary artery calcification seen on CT scan (HFpEF) heart failure with preserved ejection fraction Mediastinal lymphadenopathy Smoking greater than 30 pack years Fibrosis of lung Hilar lymphadenopathy Lung nodule COPD mixed type Dyspnea on exertion Interatrial cardiac shunt Fracture of toe Contusion of right forearm Right forearm pain Establishing care with new doctor, encounter for Shingles Prolapse of uterus Strain of mid-back Dermatitis Urinary tract infection Urinary problem Sinusitis Acute bronchitis UTI (urinary tract infection) Immunization due Allergic bronchitis URI (upper respiratory infection) Surgical History Hx of cholecystectomy History of tubal ligation Family History Mother Parkinson disease Dementia Father Stroke Brother Cancer lung cancer- 2 brothers Brother Crohn's disease two brothers Social History Smoking Status: Former smoker second hand exposure: Yes alcohol intake: never substance use type: denies use current occupational status: other Travel in the last 8 weeks?: None household members: family housing: house marital status: number of children: 2 number of grandchildren: 4 PM Subjective & Objective Subjective Subjective:: Patient is a pleasant 69-year-old female who presents today for bilateral SI injection follow-up on 11/21/2024. Today she rates her pain a 4 out of 10. Patient does state that this 1 did not do as well as her previous SI injections. Patient felt like the injection even itself felt a little different. Patient states while it was numb it felt great with at least 80% improvement or more. She does state however once the numbing medication wore off she was back to her baseline. Patient states it did take nearly 2 weeks for it to really start to kick in. Patient states the last few days have just really started to provide better coverage to where it was much more manageable. She does state that overall the left side did pretty good from the get go but it was the right side which is her worst side that gave her more problems. Patient states that she did rely a lot on her compounded cream and tizanidine 4 mg 3 times a day due to the worsening pain. Patient does state that every day has improved and that she is hopeful that it will continue to do so. Her Jay has been reviewed and is appropriate. Review of Systems: General: No recent weight changes, no fever, no sleep disturbances Respiratory: No cough, no shortness of air, no recurring pulmonary infections Cardiovascular/peripheral vascular: No chest pain, no palpitations, no edema, no shortness of breath Gastrointestinal: No new onset incontinence, normal bowel movements reported Genitourinary: No new onset incontinence Musculoskeletal: Low back pain Psychiatric: [Normal mood/affect] Neurological: [Denies weakness in extremities], [denies balance issues] Pain at rest (0-10 scale): 4 Objective Objective:: Physical Exam: General: Alert and oriented x3, no acute distress, pleasant and cooperative Lungs: Respirations even and unlabored, symmetrical chest expansion Eyes: PERRL Musculoskeletal: Flexion and extension of lumbar [spine] somewhat guarded secondary to pain, [antalgic gait noted] Neurological: Speech clear, no gross sensory deficit Has patient had previous pain injection?: Yes Percent improvement in pain since last injection: 80% while numb, delayed improvement after Conservative treatment options previously tried: Home exercise plan Length of treatment: Longer than 12 weeks Meds Home Medications and Allergies Home Medications ?Medication ?Instructions ?Recorded ?Confirmed ?Type docusate sodium 100 mg capsule 100 mg PO DAILY PRN BOW ELS 03/08/23 11/21/24 History (Colace) sertraline 50 mg tablet 50 mg PO QHS #90 tabs 11/21/24 Rx buspirone 10 mg tablet 10 mg PO TID #270 tabs 01/0911/21/24 Rx cetirizine 10 mg tablet (Zyrtec) 10 mg PO DAILY #90 ta bs 01/10/24 11/21/24 Rx fluticasone fur. 100 mcg-umeclid 1 inh inhalation CONRADO Y #60 ea 01/10/24 11/21/24 Rx 62.5 mcg-vilant 25 mcg inhalat.powder (Trelegy Ellipta) guaifenesin 600 mg tablet, 600 mg PO Q12H PRN congesti on #180 01/10/24 11/21/24 Rx extended release 12 hr tabs nicotine 21 mg/24 hr daily 1 patch transdermal Q24H #2 8 ea 01/10/24 11/21/24 Rx transdermal patch cholecalciferol (vitamin D3) 50 50 mcg PO DAILY 11/21/24 History mcg (2,000 unit) capsule albuterol sulfate 90 mcg/actuation 2 puff inhalation Q 4-6H PRN 01/31/24 11/21/24 Rx aerosol inhaler (Ventolin HFA) shortness of breath or wheezing #6.7 grams dapagliflozin propanediol 10 mg 10 mg PO DAILY #30 tab s 04/20/24 11/21/24 Rx tablet (Farxiga) methocarbamol 500 mg tablet 500 mg PO TID #90 tabs 12/1911/21/24 Rx empagliflozin 10 mg tablet 10 mg PO DAILY #90 tabs 11/21/24 Rx (Jardiance) tirzepatide 2.5 mg/0.5 mL 2.5 mg (0.5 mL) SQ WEEKLY #2 .5 mL 09/18/24 11/21/24 Rx subcutaneous pen injector (Mounjaro) spironolactone 50 mg tablet 50 mg PO DAILY #90 tabs 11/21/24 Rx tizanidine 4 mg tablet (Zanaflex) 4 mg PO TID #90 tabs 10/02/24 11/21/24 Rx carvedilol 6.25 mg tablet See Rx Instructions .Route 0 12/11/24 Rx .COMPLEX #180 tabs furosemide 40 mg tablet (Lasix) 40 mg PO DAILY #30 tab s 12/11/24 Rx New Prescriptions to Start Prescriptions: Allergies Allergy/AdvReac Type Severity Reaction Status Date / Time codeine Allergy Mild Anxiety Verified 09/18/24 13:25 Assessment and Plan *Assessment and plan (1) Bilateral sacroiliitis: Status: Acute Category: Medical Code(s): M46.1 - Sacroiliitis, not elsewhere classified Plan Patient is just now starting to experience more significant improvement following the SI injections there along the right side. I did discuss with her that it may just have been a mere flukes that this 1 did take longer to kick in however there was also the change from Depo-Medrol to dexamethasone and that may have played a role as well. I will refill the patient's tizanidine and provide a 3-month supply of this medication. Patient will return to clinic in 6 weeks for reevaluation of symptoms and plan of care. Patient has been instructed to contact the clinic with any concerns before the next appointment. Dr. Muñiz has reviewed this note and agrees with this plan of care. This note was dictated using voice recognition software and make contain errors or omissions. All injections are used with Lidocaine, Bupivacaine and dexamethasone. Occasionally urine drug screen is needed to verify patient's compliance with our office pain contract. This is ordered based off specific treatments related to chronic pain with the potential to abuse certain medications.
[2024-12-11 15:06] VITALS: BP 105/66; PULSE 81; RESP 18; O2SAT 90; BMI 29.2
== END 2024-12-11 23:59 | disposition home or self-care (01) ==
PROVIDERS: PCP Nurse Practitioner Family; Visit Provider Nurse Practitioner Family
DX: M46.1 Sacroiliitis, not elsewhere classified (principal); Z98.890 Other specified postprocedural states; Z79.899 Other long term (current) drug therapy
CPT/HCPCS: 99212; G0463

== ENCOUNTER 2025-01-22 14:19 | Outpatient (POV) | payer MEDICARE, BC, SELFPAY ==
--- OUTSIDE RECORDS SUMMARY | 2025-01-22 14:23 | XMS_ITS | Clinical Summary ---
Author Organization [facility] Address [address] [place] [address] Care Team Providers Care Physical Therapist Aide Name Role Phone Provider, No Known Primary Care Provider Unavail able Allergies No known active allergies Social History Tobacco Use Types Packs/Day Years Used Date Smoking Tobacco: Never Assessed Abuse Screen Answer Date Recorded Unsafe at Home or Work/School Not on file Feels Threatened by Someone? Not on file Does Anyone Keep You from Co ntacting Others or Doint Things Outside the Home? Not on file 11/12/2023 Physical Sign of Abuse Present Not on file 0 11/12/2023 Housing Stability Answer Date Recorded Current Living Arrangements Not on file 10/26 Potentially Unsafe Housing Conditions Not on pavan e 11/12/2023 Family and Community Support Answer Yury e Recorded Help with Day-to-Day Activities Not on file 11/12/2023 Lonely or Isolated Not on file 11/12/2023 Employment Answer Date Recorded Do you want help finding or keeping work or a kt b? Not on file 11/12/2023 Disabilities Answer Date Recorded Concentrating, Remembering, or Making Decisions Difficulty Not on file 11/12/2023 Doing Errands Independently Difficulty Not on fi le 11/12/2023 Education Answer Date Recorded Help with school or training? Not on file Preferred Language Not on file 11/12/2023 Comments Unknown Sex and Gender Information Value Date Recorded Sex Assigned at Not on file Legal Sex Female 10:49 AM EDT Gender Identity Not on file Sexual Orientation Not on file Plan of Treatment Health Maintenance Due Date Last Done Comments ANNUAL PHYSICAL 1955 DXA SCAN 1955 HEPATITIS C SCREENING 1953 TDAP/TD VACCINES (1 - Tdap) 01/31/1972 MAMMOGRAM 1993 COLOGUARD 1998 COLON CANCER SCREENING 5 YEA R SIGMOIDOSCOPY 1998 COLONOSCOPY 1998 [address] CANCER SCREENING 1998 CT COLONOGRAPHY 1998 FECAL OCCULT BLOOD TEST 1998 FIT Testing (1 year) 1998 Pneumococcal Vaccine 50+ (1 of 1 - PCV) 2003 ZOSTER VACCINE (1 of 2) 2003 COVID-19 Vaccine (3 - season) 02/27/202411/2020, 09/10/2020 INFLUENZA VACCINE 03/28/2025 Insurance MEDICARE A & B Care Teams Physical Therapist Aide Relationship Specialty Start Date End Date Provider, [place] [address] PCP - General 11/16/23
--- NOTE | 2025-01-22 14:24 | EXP.PAIN.SOA ---
[facility] Disclaimer: The information contained in this section may have been updated after the patient was seen, as this information can be updated by other users. Medical History Coronary artery calcification seen on CT scan (HFpEF) heart failure with preserved ejection fraction Mediastinal lymphadenopathy Smoking greater than 30 pack years Fibrosis of lung Hilar lymphadenopathy Lung nodule COPD mixed type Dyspnea on exertion Interatrial cardiac shunt Fracture of toe Contusion of right forearm Right forearm pain Establishing care with new doctor, encounter for Shingles Prolapse of uterus Strain of mid-back Dermatitis Urinary tract infection Urinary problem Sinusitis Acute bronchitis UTI (urinary tract infection) Immunization due Allergic bronchitis URI (upper respiratory infection) Surgical History Hx of cholecystectomy History of tubal ligation Family History Mother Parkinson disease Dementia Father Stroke Brother Cancer lung cancer- 2 brothers Brother Crohn's disease two brothers Social History Smoking Status: Former smoker tobacco type: cigarettes packs per day: 1 second hand exposure: Yes alcohol intake: never substance use type: denies use current occupational status: other Travel in the last 8 weeks?: None household members: family housing: house marital status: number of children: 2 number of grandchildren: 4 PM Subjective & Objective Subjective Subjective:: Patient is a pleasant 69-year-old female who presents today for follow-up. Today she rates her pain a 4 out of 10. Patient did previously have her last bilateral SI injections 11/21/2024 that did provide at least 80% relief. She does state that she still feels like this is still working. She states that the drawling sensation has just now started to come back however it is still very much manageable. She does state that it is primarily along the right side that is giving her more problems currently. Patient is prescribed tizanidine 4 mg 3 times a day and compounded cream from our office. She denies any side effects. Her Jay has been reviewed and is appropriate. Review of Systems: General: No recent weight changes, no fever, no sleep disturbances Respiratory: No cough, no shortness of air, no recurring pulmonary infections Cardiovascular/peripheral vascular: No chest pain, no palpitations, no edema, no shortness of breath Gastrointestinal: No new onset incontinence, normal bowel movements reported Genitourinary: No new onset incontinence Musculoskeletal: Low back pain Psychiatric: [Normal mood/affect] Neurological: [Denies weakness in extremities], [denies balance issues] Pain at rest (0-10 scale): 4 Objective Objective:: Physical Exam: General: Alert and oriented x3, no acute distress, pleasant and cooperative Lungs: Respirations even and unlabored, symmetrical chest expansion Eyes: PERRL Musculoskeletal: Flexion and extension of lumbar [spine] somewhat guarded secondary to pain Neurological: Speech clear, no gross sensory deficit Has patient had previous pain injection?: No Conservative treatment options previously tried: Home exercise plan Length of treatment: Longer than 12-week Meds Home Medications and Allergies Home Medications ?Medication ?Instructions ?Recorded ?Confirmed ?Type docusate sodium 100 mg capsule 100 mg PO DAILY PRN BOWELS 03/08/23 12/11/24 History (Colace) guaifenesin 600 mg tablet, 600 mg PO Q12H PRN congestion #180 01/10/24 12/11/24 Rx extended release 12 hr tabs nicotine 21 mg/24 hr daily 1 patch transdermal Q24H #28 ea 01/10/24 12/11/24 Rx transdermal patch cholecalciferol (vitamin D3) 50 50 mcg PO DAILY 01/14/24 12/11/24 History mcg (2,000 unit) capsule albuterol sulfate 90 mcg/actuation 2 puff inhalation Q4-6H PRN 01/31/24 12/11/24 Rx aerosol inhaler (Ventolin HFA) shortness of breath or wheezing #6.7 grams dapagliflozin propanediol 10 mg 10 mg PO DAILY #30 tabs 04/20/24 12/11/24 Rx tablet (Farxiga) methocarbamol 500 mg tablet 500 mg PO TID #90 tabs 06/02/24 12/11/24 Rx empagliflozin 10 mg tablet 10 mg PO DAILY #90 tabs 07/10/24 12/11/24 Rx (Jardiance) tirzepatide 2.5 mg/0.5 mL 2.5 mg (0.5 mL) SQ WEEKLY #2.5 mL 09/18/24 12/11/24 Rx subcutaneous pen injector (Mounjaro) spironolactone 50 mg tablet 50 mg PO DAILY #90 tabs 09/20/24 12/11/24 Rx carvedilol 6.25 mg tablet See Rx Instructions .Route 12/11/24 12/11/24 Rx .COMPLEX #180 tabs furosemide 40 mg tablet (Lasix) 40 mg PO DAILY #30 tabs 12/11/24 12/11/24 Rx tizanidine 4 mg tablet (Zanaflex) 4 mg PO TID #90 tabs 12/11/24 Rx fluticasone fur. 100 mcg-umeclid See Rx Instructions .Route 01/01/25 Rx 62.5 mcg-vilant 25 mcg .COMPLEX #60 ea inhalat.powder (Trelegy Ellipta) sertraline 50 mg tablet See Rx Instructions .Route 01/01/25 Rx .COMPLEX #90 tabs buspirone 10 mg tablet See Rx Instructions .Route 01/15/25 Rx .COMPLEX #270 tabs cetirizine 10 mg tablet (Allergy See Rx Instructions .Route 01/15/25 Rx Relief (cetirizine)) .COMPLEX #90 tabs New Prescriptions to Start Prescriptions: Allergies Allergy/AdvReac Type Severity Reaction Status Date / Time codeine Allergy Mild Anxiety Verified 09/18/24 13:25 Assessment and Plan *Assessment and plan (1) Sacroiliitis: Status: Acute Category: Medical Code(s): M46.1 - Sacroiliitis, not elsewhere classified Plan Patient is still doing well overall from her last SI injections and does not require any additional injection therapy at this time. Patient will return to clinic in 3 weeks for reevaluation of symptoms and plan of care. I will increase her compounded cream concentration. Patient has been instructed to contact the clinic with any concerns before the next appointment. Dr. Muñiz has reviewed this note and agrees with this plan of care. This note was dictated using voice recognition software and make contain errors or omissions. All injections are used with Lidocaine, Bupivacaine and dexamethasone. Occasionally urine drug screen is needed to verify patient's compliance with our office pain contract. This is ordered based off specific treatments related to chronic pain with the potential to abuse certain medications.
[2025-01-22 14:31] VITALS: BP 108/67; PULSE 73; O2SAT 91; BMI 29.2
== END 2025-01-22 23:59 | disposition home or self-care (01) ==
LOC: SC.PAIN 14:21
PROVIDERS: PCP Nurse Practitioner Family; Visit Provider Nurse Practitioner Family
DX: M46.1 Sacroiliitis, not elsewhere classified (principal); Z79.899 Other long term (current) drug therapy
CPT/HCPCS: 99212; G0463

== ENCOUNTER 2025-02-19 12:50 | Outpatient (POV) | payer MEDICARE, BC, SELFPAY ==
--- OUTSIDE RECORDS SUMMARY | 2025-02-19 12:55 | XMS_ITS | Clinical Summary ---
[facility] [address] [place] [address] Care Team Providers Care Agitator Operator Name Role Phone Provider, No Known Primary [...] Insurance MEDICARE A & B Care Teams Agitator Operator Relationship Specialty Start Date End Date Provider, [place] [address] PCP - General 11/16/23
--- OUTSIDE RECORDS SUMMARY | 2025-02-19 12:55 | XMS_ITS ---
Author Organization Unknown [facility] Start Date Provider Encounter for Check-up [phone] [facility]
[2025-02-19 13:19] VITALS: BP 111/76; PULSE 89; RESP 14; O2SAT 93; BMI 29.2
--- NOTE | 2025-02-19 13:45 | EXP.PAIN.SOA ---
[facility] Disclaimer: The information contained in this section may have been updated after the patient was seen, as this information can be updated by other users. Medical History Coronary artery calcification seen on CT scan (HFpEF) heart failure with preserved ejection fraction Mediastinal lymphadenopathy Smoking greater than 30 pack years Fibrosis of lung Hilar lymphadenopathy Lung nodule COPD mixed type Dyspnea on exertion Interatrial cardiac shunt Fracture of toe Contusion of right forearm Right forearm pain Establishing care with new doctor, encounter for Shingles Prolapse of uterus Strain of mid-back Dermatitis Urinary tract infection Urinary problem Sinusitis Acute bronchitis UTI (urinary tract infection) Immunization due Allergic bronchitis URI (upper respiratory infection) Surgical History Hx of cholecystectomy History of tubal ligation Family History Mother Parkinson disease Dementia Father Stroke Brother Cancer lung cancer- 2 brothers Brother Crohn's disease two brothers Social History Smoking Status: Former smoker tobacco type: cigarettes packs per day: 1 pack-years: 50 second hand exposure: Yes alcohol intake: never substance use type: denies use current occupational status: other Travel in the last 8 weeks?: None household members: family housing: house marital status: number of children: 2 number of grandchildren: 4 PM Subjective & Objective Subjective Subjective:: Patient is a pleasant 70-year-old female who presents today for 1 month follow-up. She rates her pain today a 5 out of 10. Patient states that the increased concentration and the compounded cream does really help. She states she is still having a little bit more pain on the right side however is still not had the return of the drawling up sensation and so feels like it is very manageable still. Patient's last SI injections were in October that did provide 80% improvement. She is prescribed tizanidine 4 mg 3 times a day from our office. She denies any side effects. Her Jay has been reviewed and is appropriate. Review of Systems: General: No recent weight changes, no fever, no sleep disturbances Respiratory: No cough, no shortness of air, no recurring pulmonary infections Cardiovascular/peripheral vascular: No chest pain, no palpitations, no edema, no shortness of breath Gastrointestinal: No new onset incontinence, normal bowel movements reported Genitourinary: No new onset incontinence Musculoskeletal: Right sided low back pain Psychiatric: [Normal mood/affect] Neurological: [Denies weakness in extremities], [denies balance issues] Pain at rest (0-10 scale): 5 Objective Objective:: Physical Exam: General: Alert and oriented x3, no acute distress, pleasant and cooperative Lungs: Respirations even and unlabored, symmetrical chest expansion Eyes: PERRL Musculoskeletal: Flexion and extension of lumbar [spine] somewhat guarded secondary to pain, [antalgic gait noted] Neurological: Speech clear, no gross sensory deficit Has patient had previous pain injection?: No Conservative treatment options previously tried: Home exercise plan Length of treatment: Longer than 12 weeks Meds Home Medications and Allergies Home Medications ?Medication ?Instructions ?Recorded ?Confirmed ?Type docusate sodium 100 mg capsule 100 mg PO DAILY PRN BOWELS 03/08/23 02/19/25 History (Colace) guaifenesin 600 mg tablet, 600 mg PO Q12H PRN congestion #180 01/10/24 02/19/25 Rx extended release 12 hr tabs nicotine 21 mg/24 hr daily 1 patch transdermal Q24H #28 ea 01/10/24 02/19/25 Rx transdermal patch cholecalciferol (vitamin D3) 50 50 mcg PO DAILY 01/14/24 02/19/25 History mcg (2,000 unit) capsule albuterol sulfate 90 mcg/actuation 2 puff inhalation Q4-6H PRN 01/31/24 02/19/25 Rx aerosol inhaler (Ventolin HFA) shortness of breath or wheezing #6.7 grams dapagliflozin propanediol 10 mg 10 mg PO DAILY #30 tabs 04/20/24 02/19/25 Rx tablet (Farxiga) methocarbamol 500 mg tablet 500 mg PO TID #90 tabs 06/02/24 02/19/25 Rx empagliflozin 10 mg tablet 10 mg PO DAILY #90 tabs 07/10/24 02/19/25 Rx (Jardiance) tirzepatide 2.5 mg/0.5 mL 2.5 mg (0.5 mL) SQ WEEKLY #2.5 mL 09/18/24 02/19/25 Rx subcutaneous pen injector (Mounjaro) spironolactone 50 mg tablet 50 mg PO DAILY #90 tabs 09/20/24 02/19/25 Rx carvedilol 6.25 mg tablet See Rx Instructions .Route 12/11/24 02/19/25 Rx .COMPLEX #180 tabs furosemide 40 mg tablet (Lasix) 40 mg PO DAILY #30 tabs 12/11/24 02/19/25 Rx tizanidine 4 mg tablet (Zanaflex) 4 mg PO TID #90 tabs 12/11/24 02/19/25 Rx sertraline 50 mg tablet See Rx Instructions .Route 01/01/25 02/19/25 Rx .COMPLEX #90 tabs buspirone 10 mg tablet See Rx Instructions .Route 01/15/25 02/19/25 Rx .COMPLEX #270 tabs cetirizine 10 mg tablet (Allergy See Rx Instructions .Route 01/15/25 02/19/25 Rx Relief (cetirizine)) .COMPLEX #90 tabs fluticasone fur. 100 mcg-umeclid See Rx Instructions .Route 02/01/25 02/19/25 Rx 62.5 mcg-vilant 25 mcg .COMPLEX #60 ea inhalat.powder (Trelegy Ellipta) New Prescriptions to Start Prescriptions: Allergies Allergy/AdvReac Type Severity Reaction Status Date / Time codeine Allergy Mild Anxiety Verified 09/18/24 13:25 Assessment and Plan *Assessment and plan (1) Sacroiliitis: Status: Acute Category: Medical Code(s): M46.1 - Sacroiliitis, not elsewhere classified Plan Patient is still doing well overall and does not require any additional injection therapy at this time. We will follow-up with her in 1 month. Patient has been instructed to contact the clinic with any concerns before the next appointment. Dr. Muñiz has reviewed this note and agrees with this plan of care. This note was dictated using voice recognition software and make contain errors or omissions. All injections are used with Lidocaine, Bupivacaine and dexamethasone. Occasionally urine drug screen is needed to verify patient's compliance with our office pain contract. This is ordered based off specific treatments related to chronic pain with the potential to abuse certain medications.
== END 2025-02-19 23:59 | disposition home or self-care (01) ==
LOC: SC.PAIN 12:51
PROVIDERS: PCP Nurse Practitioner Family; Visit Provider Nurse Practitioner Family
DX: M46.1 Sacroiliitis, not elsewhere classified (principal); Z79.899 Other long term (current) drug therapy
CPT/HCPCS: 99212; G0463

== ENCOUNTER 2025-03-06 13:23 | Outpatient (CLI) | payer MEDICARE, BC, SELFPAY ==
--- OUTSIDE RECORDS SUMMARY | 2025-03-06 13:26 | XMS_ITS | Clinical Summary ---
[facility] Address [address] [place] [address] Care Team Providers Care Music Education Adjunct Professor Name Role Phone Provider, No Known Primary [...] 2) 2003 COVID-19 Vaccine (3 - season) 02/26/202511/2020, 09/10/2020 INFLUENZA VACCINE 03/28/2025 Insurance MEDICARE A & B Care Teams Music Education Adjunct Professor Relationship Specialty Start Date End Date Provider, [place] [address] PCP - General 11/16/23
--- NOTE | 2025-03-06 13:30 | MM_ITS ---
PROCEDURE INFORMATION: Exam: MG Bilateral Screening 3D Mammography Exam date and time: 03/06/2025 1:28 PM Age: 70 years old Clinical indication: Screening mammogram TECHNIQUE: Imaging protocol: Bilateral Screening tomosynthesis and 2D mammography including computer-aided detection (CAD) when performed. COMPARISON: 1. MG MM DIG SCREENING MAMM BI W/CAD 03/19/2023 3:48 PM 2. MG MM DIG MAMM BI DX W/CAD 02/18/2021 1:39 PM 3. US BREAST RT COMPLETE 02/24/2021 2:31 PM FINDINGS: MAMMOGRAPHY: Breast composition: There are scattered areas of fibroglandular density. Mass: None. Architectural distortion: No new or suspicious architectural distortion. Calcifications: No new or suspicious calcifications are present Asymmetric density: No new or suspicious asymmetric density is present Skin thickening: None. Axillary adenopathy: None. IMPRESSION: No mammographic evidence of malignancy. Recommend annual screening mammography unless otherwise clinically indicated. ASSESSMENT: BI-RADS category 1: Negative.
== END 2025-03-06 23:59 | disposition home or self-care (01) ==
LOC: RAD 13:24
PROVIDERS: PCP Nurse Practitioner Family; Visit Provider Nurse Practitioner Family
DX: Z12.31 Encounter for screening mammogram for malignant neoplasm of breast (principal); R92.323 Mammographic fibroglandular density, bilateral breasts
CPT/HCPCS: 77063; 77067

== ENCOUNTER 2025-03-20 13:52 | Outpatient (CLI) | payer MEDICARE, BC, SELFPAY ==
--- OUTSIDE RECORDS SUMMARY | 2025-03-20 13:57 | XMS_ITS | Clinical Summary ---
[facility] Address [address] [place] [address] Care Team Providers Care Center Human Resources Manager Name Role Phone Provider, No Known Primary [...] 2003 ZOSTER VACCINE (1 of 2) 2003 INFLUENZA VACCINE 01/26/2025 COVID-19 Vaccine ( - season) 02/26/202511/2020, 09/10/2020 Insurance MEDICARE A & B Care Teams Center Human Resources Manager Relationship Specialty Start Date End Date Provider, [place] [address] PCP - General 11/16/23
[2025-03-20 14:14] LABS: Microscopic, Urine URINE MICROSCOPIC (MICROSCOPIC)
[2025-03-20 15:10] LABS: Hematocrit 47.5 % (37.0-47.0); Hemoglobin 16.5 g/dL (12.2-16.2); Immature Granulocytes % 1.0 %; Mean Corpuscular HGB Conc 34.7 g/dL (31.8-35.4); Mean Corpuscular Hemoglobin 31.8 pg (27.0-31.2); Mean Corpuscular Volume 91.5 fl (81-99); Nucleated Red Blood Cells % 0 %; Platelet Count 320 K/mm3 (142-424); Red Blood Count 5.19 M/mm3 (4.20-5.40); Red Cell Distribution Width-SD 41.0 fL; White Blood Count 9.4 K/mm3 (4.8-10.8)
[2025-03-20 16:01] LABS: Bilirubin,Urine Negative (Negative); Color,Urine YELLOW (Yellow); Glucose,Urine (UA) 1+ (Negative); Ketones,Urine Negative (Negative); Leukocyte Esterase,Urine Negative (Negative); PH,Urine 6.0 (5.0-8.5); Protein,Urine Negative (Negative); Specific Gravity, Urine 1.010 (1.005-1.030); Urobilinogen,Urine 0.2 EU/dl (0.2)
[2025-03-20 16:08] LABS: Albumin Level 4.9 g/dl (3.5-5.0); Chloride 102 mmol/L (98-107)
[2025-03-20 16:09] LABS: Potassium 4.6 mmoL/L (3.5-5.1); Sodium 136 mmol/L (136-145)
[2025-03-20 16:11] LABS: Alanine Aminotransferase 24 U/L (12-78); Albumin/Globulin Ratio 1.5 (1.1-1.8); Alkaline Phosphatase 119 U/L (38-126); Anion Gap 17.6 mEq/L (5-15); Aspartate Amino Transferase 34 U/L (14-36); Bilirubin,Total 1.1 mg/dl (0.2-1.3); Blood Urea Nitrogen 22 mg/dl (7-17); Carbon Dioxide 21 mmol/L (22.0-30.0); Cholesterol 189 mg/dl (140-200); Creatinine,Serum 1.00 mg/dl (0.52-1.04); Estimated Glomerular Filt Rate 55 ml/min (>60); GFR (African American) 66 ML/MIN (>60); Globulin 3.3 g/dL (1.3-3.2); Iron 160 ug/dL (37-170); Total Protein,Serum 8.2 g/dl (6.3-8.2); Triglycerides 283 mg/dl (30-150)
[2025-03-20 16:12] LABS: Calcium 9.9 mg/dl (8.4-10.2); Glucose 79 mg/dl (74-100); HDL Cholesterol 33 mg/dl (40-60)
[2025-03-20 16:23] LABS: Total Iron Binding Capacity 351 ug/dL (265-497)
[2025-03-20 16:26] LABS: Free T4 (Free Thyroxine) 1.19 ng/dl (0.78-2.19)
[2025-03-20 16:40] LABS: Hemoglobin A1C 5.8 % (4.0-6.0)
[2025-03-20 16:41] LABS: Thyroid Stimulating Hormone 0.66 uIU/mL (0.465-4.68)
[2025-03-20 16:45] LABS: Ferritin 196 ng/ml (11.1-264)
[2025-03-20 17:00] LABS: Vitamin B12 549 pg/mL (239-931)
[2025-03-20 17:14] LABS: 25-OH Vitamin D, Total 96.9 ng/mL (30-100)
[2025-03-20 20:31] LABS: Bacteria,Urine 1+ /lpf; Squamous Epithelial Cell,Urine 20-50 #/hpf (0-5)
== END 2025-03-20 23:59 | disposition home or self-care (01) ==
LOC: LAB 13:54
PROVIDERS: PCP Nurse Practitioner Family; Visit Provider Nurse Practitioner Family
DX: Z00.00 Encounter for general adult medical examination without abnormal findings (principal); E55.9 Vitamin D deficiency, unspecified; F17.210 Nicotine dependence, cigarettes, uncomplicated; J84.10 Pulmonary fibrosis, unspecified; J44.89 Other specified chronic obstructive pulmonary disease; D75.1 Secondary polycythemia; N32.81 Overactive bladder; N81.9 Female genital prolapse, unspecified; R91.1 Solitary pulmonary nodule; F41.9 Anxiety disorder, unspecified; F32.A Depression, unspecified; G47.00 Insomnia, unspecified; Z11.59 Encounter for screening for other viral diseases; Z11.4 Encounter for screening for human immunodeficiency virus [HIV]; E53.8 Deficiency of other specified B group vitamins; Z71.85 Encounter for immunization safety counseling; Z53.20 Procedure and treatment not carried out because of patient's decision for unspecified reasons; M81.0 Age-related osteoporosis without current pathological fracture; R59.0 Localized enlarged lymph nodes; R00.0 Tachycardia, unspecified; G47.33 Obstructive sleep apnea (adult) (pediatric); R41.3 Other amnesia; E11.9 Type 2 diabetes mellitus without complications; I11.9 Hypertensive heart disease without heart failure
CPT/HCPCS: 36415; 80053; 80061; 81001; 82306; 82607; 82627; 82728; 83036; 83540; 83550; 84439; 84443; 85025; 87086; 87389

== ENCOUNTER 2025-03-28 12:39 | Outpatient (CLI) | payer MEDICARE, BC, SELFPAY ==
--- OUTSIDE RECORDS SUMMARY | 2025-03-28 12:46 | XMS_ITS | Clinical Summary ---
[facility] [address] [place] [address] Care Team Providers Care Tobacco Stemmer Name Role Phone Provider, No Known Primary [...] Insurance MEDICARE A & B Care Teams Tobacco Stemmer Relationship Specialty Start Date End Date Provider, [place] [address] PCP - General 11/16/23
--- OUTSIDE RECORDS SUMMARY | 2025-03-28 12:46 | XMS_ITS ---
Laboratory report Created on: March 23, 2025 MARIELENA MANY : 1955 Sex: Female Author Organization Unknown PROBLEMS Problems List Code Description RESULTS Laboratory Orders Date Order Code Test 2025-03-20 [id number] DHEA-SULFATE Laboratory Results Date LOINC Test Value Unit Reference Range Interpre tation 2025-03-20 2191-5 DHEA-SULFATE 5.9 UG/DL 20.4-186.6 L
--- NOTE | 2025-03-28 13:00 | CT_ITS ---
FINAL REPORT TECHNIQUE: The patient was injected with IV contrast. Axial images were obtained through the chest in a PE protocol. 3-D reconstruction images were also performed. Individualized dose reduction techniques using automated exposure control or adjustment of the MA and/or KV according to patient's size were employed. CLINICAL HISTORY: sob COMPARISON: CT chest 03/29/2024 FINDINGS: Mediastinal vasculature is adequately opacified. No pulmonary artery filling defects are identified to suggest PE. There is no aortic dissection. There is no axillary adenopathy. There are mildly enlarged prevascular lymph nodes noted in the mediastinum, which measure up to 1.5 cm in size, slightly increased since the prior CT of 03/29/2024. Anterior mediastinal nodules are stable. Moderate changes of centrilobular emphysema are again noted. The heart size is normal. There is no pericardial or pleural effusion. Limited images of the upper abdomen are unremarkable. There are coarse interstitial opacities noted bilaterally, likely chronic fibrosis, similar to the previous exam. The left lower lobe nodule described on the prior CT exam is no longer visualized. IMPRESSION: No pulmonary embolus or dissection. Slight increase in size of the mildly enlarged prevascular lymph nodes in the mediastinum, measuring up to 1.5 cm in size. Reviewed, Interpreted and Dictated by Alexy Rice MD Transcribed by Luz Mendez Authenticated and [facility]
[2025-03-28] MEDS: SODIUM CHLORIDE 0.9% 10ML SYR (RAD ONLY) 10 ML IV (13:01)
[2025-03-28] MEDS: IOPAMIDOL-370 (76%);100ML BOTTLE 85 ML IV (13:01)
[2025-03-28] MEDS: 0.9 % SODIUM CHLORIDE 50 ML VIAL IV (13:01)
== END 2025-03-28 23:59 | disposition home or self-care (01) ==
LOC: RAD 12:40
PROVIDERS: PCP Nurse Practitioner Family; Visit Provider Internal Medicine Pulmonary Disease
DX: R59.0 Localized enlarged lymph nodes (principal); R91.1 Solitary pulmonary nodule; R06.02 Shortness of breath
CPT/HCPCS: 71275; Q9967

== ENCOUNTER 2025-04-02 10:54 | Outpatient (CLI) | payer MEDICARE, BC, SELFPAY ==
--- OUTSIDE RECORDS SUMMARY | 2025-04-02 10:58 | XMS_ITS | Clinical Summary ---
[facility] [address] [place] [address] Care Team Providers Care Scrum Master Name Role Phone Provider, No Known Primary [...] Insurance MEDICARE A & B Care Teams Scrum Master Relationship Specialty Start Date End Date Provider, [place] [address] PCP - General 11/16/23
--- NOTE | 2025-04-02 11:15 | CA_ITS ---
APPROVED REPORT EXAM: Comprehensive 2D, Doppler, and color-flow Echocardiogram Gm/Svp Global Publisher Business: Tayler Bettencourt RVT Ht: 5 ft 0 in Wt: 154lbs BSA: 1.67 BP: 122/71 mmHg Indications: SHORTNESS OF BREATH 2D Dimensions LA Volume 18.60 mL LA Volume Index 11.14 mL/m2 (M/F) 16-34 M-Mode Dimensions RVDd 2.72 cm (0.9-2.6) LA Diam 2.89 cm (1.9-4.0) LVDd 4.46 cm (3.5-5.7) LVDs 3.02 cm (3.5-5.7) IVSd 0.84 cm (0.6-1.1) PWd 0.70 cm (0.6-1.1) EF (Teich) 60.70% FS 32.30% EDV (Teich) 90.50 mL TAPSE 1.72 (<1.7) ESV (Teich) 35.60 mL LV Diastology E Decel Time 150 (160-240 msec) E/A Ratio 0.9 Aortic Valve NELDA Index 1.50 cm2/m2 AoV Peak Arnulfo. 90.0 (50-130 cm/s) AO Peak GR. 3.20 mmHg AO Mean GR. 1.90 (<5 mmHg) AO VTI 18.9 (18-25 cm) NELDA (VTI) 2.56 (2.5-4.5 cm2) Mitral Valve MV E Max Arnulfo. 68.0 (40-130 cm/s) MV A Velocity 79.0 (40-130 cm/s) E/A Ratio 0.86 MV PHT 44.0 ms Pulmonary Valve PV Peak Velocity 76.0 (50-150 cm/s) Tricuspid Valve TR P. Velocity 203.00 cm/s RAP Estimate 8.00 mmHg RVSP 24.50 mmHg Left Ventricle The left ventricle is normal size. Left ventricular systolic function is normal. The left ventricular ejection fraction is within the normal range. There is increased left ventricular wall thickness. There is normal LV segmental wall motion. Transmitral Doppler flow pattern suggests impaired LV relaxation. LVEF is 55% Right Ventricle The right ventricle is borderline dilated. The right ventricular systolic function is normal. Atria The left atrium size is normal. The right atrium size is normal. There is no color Doppler evidence of interatrial shunt. Aortic Valve The aortic valve is mildly thickened. There is no hemodynamically significant aortic valvular stenosis. No aortic regurgitation is present. Mitral Valve The mitral valve is normal in structure. No evidence of mitral valve stenosis. Trace mitral regurgitation is present. Tricuspid Valve The tricuspid valve leaflets are thin and pliable. Mild tricuspid regurgitation. RVSP is 30-35 mmHg. Pulmonic Valve The pulmonary valve is grossly normal in structure. Trace pulmonic valve regurgitation is present. Great Vessels The aortic root is normal in size. IVC is normal in size and collapses >50% with inspiration. Pericardium There is no pericardial effusion. Other Information Study Quality: Technically Difficult Conclusion Normal biventricular systolic function. Borderline RV dilation. Mild TR. Electronically signed by : Sis Fernandez MD 04/04/2025 22:55:35
== END 2025-04-02 23:59 | disposition home or self-care (01) ==
LOC: RT 10:55
PROVIDERS: PCP Nurse Practitioner Family; Visit Provider Internal Medicine
DX: I07.1 Rheumatic tricuspid insufficiency (principal)
CPT/HCPCS: 93306

== ENCOUNTER 2025-04-09 13:12 | Outpatient (CLI) | payer MEDICARE, BC, SELFPAY ==
--- NOTE | 2025-04-09 13:15 | XR_ITS ---
FINAL REPORT TECHNIQUE: Bone densitometry calculations of the lumbar spine and bilateral hips were obtained. CLINICAL HISTORY: postmenopausal bone loss COMPARISON: None FINDINGS: Using L1-4, the bone mineral density of the spine is 0.936 g/cm2, corresponding to T-score of -1.0 and a Z score of 1.2. This is within the range of osteopenia. Using the left hip, the bone mineral density of the femoral neck is 0.717 g/cm2, corresponding to a T-score of -1.2 and a Z-score of 0.7. This is within the range of osteopenia. Using the right hip, the bone mineral density of the femoral neck is 0.740 g/cm?, corresponding to a T-score of -1.0 and a Z-score of 0.9. This is within the range of osteopenia. NOTE: T-score: Standard deviation compared with peak bone mass of young adult mean. *Following the recommendations of the International Society of Bone densitometry, classification of hip BMD is based on the lower of two T-scores; total hip or femoral neck. IMPRESSION: 1. Bone mineral density of the lumbar spine within the range of osteopenia. 2. Bone mineral density of the bilateral femoral necks within the range of osteopenia. Reviewed, Interpreted and Dictated by Rea Flynn MD Transcribed by Luz Mendez Authenticated and [facility][1]
--- OUTSIDE RECORDS SUMMARY | 2025-04-09 13:15 | XMS_ITS | Clinical Summary ---
[facility] Address [address] [place] [address] Care Team Providers Care Structural Draftsman Name Role Phone Provider, No Known Primary [...] Insurance MEDICARE A & B Care Teams Structural Draftsman Relationship Specialty Start Date End Date Provider, [place] [address] PCP - General 11/16/23
== END 2025-04-09 23:59 | disposition home or self-care (01) ==
LOC: RAD 13:14
PROVIDERS: PCP Nurse Practitioner Family; Visit Provider Nurse Practitioner Family
DX: M85.88 Other specified disorders of bone density and structure, other site (principal)
CPT/HCPCS: 77080

== ENCOUNTER 2025-06-13 10:20 | Outpatient (CLI) | payer MEDICARE, BC, SELFPAY ==
[2025-06-13 08:16] VITALS: BMI 28.7
[2025-06-13 11:05] LABS: Hematocrit 52.0 % (37.0-47.0); Hemoglobin 17.8 g/dL (12.2-16.2); Immature Granulocytes % 0.9 %; Mean Corpuscular HGB Conc 34.2 g/dL (31.8-35.4); Mean Corpuscular Hemoglobin 31.1 pg (27.0-31.2); Mean Corpuscular Volume 90.8 fl (81-99); Nucleated Red Blood Cells % 0 %; Platelet Count 302 K/mm3 (142-424); Red Blood Count 5.73 M/mm3 (4.20-5.40); Red Cell Distribution Width-SD 42.4 fL; White Blood Count 9.1 K/mm3 (4.8-10.8)
[2025-06-13 11:07] LABS: Anion Gap 13.8 mEq/L (5-15); Blood Urea Nitrogen 27 mg/dl (7-17); Calcium 9.8 mg/dl (8.4-10.2); Carbon Dioxide 24 mmol/L (22.0-30.0); Chloride 104 mmol/L (98-107); Creatinine Clearance Estimated 49 mL/min (50-200); Creatinine,Serum 1.10 mg/dl (0.52-1.04); Estimated Glomerular Filt Rate 49 ml/min (>60); GFR (African American) 59 ML/MIN (>60); Glucose 127 mg/dl (74-100); Potassium 4.8 mmoL/L (3.5-5.1); Sodium 137 mmol/L (136-145)
--- OUTSIDE RECORDS SUMMARY | 2025-06-13 12:14 | XMS_ITS | Clinical Summary ---
[facility] Address [address] [place] [address] Care Team Providers Care Cell Biologist Name Role Phone Provider, No Known Primary [...] Insurance MEDICARE A & B Care Teams Cell Biologist Relationship Specialty Start Date End Date Provider, [place] [address] PCP - General 11/16/23
== END 2025-06-13 23:59 | disposition home or self-care (01) ==
LOC: PREOP 10:22
PROVIDERS: PCP Internal Medicine; Visit Provider Surgery
DX: Z01.818 Encounter for other preprocedural examination (principal); Z01.812 Encounter for preprocedural laboratory examination
CPT/HCPCS: 80048; 85025

== ENCOUNTER 2025-06-19 13:57 | Day surgery (SDC) | payer MEDICARE, BC, SELFPAY ==
[2025-06-19 14:00] VITALS: BP 114/65; PULSE 115; RESP 18; O2SAT 93; BMI 29.2
[2025-06-19 14:20] VITALS: BP 130/78; PULSE 111; RESP 18; O2SAT 92
[2025-06-19] MEDS: DEXAMETHASONE 10MG/ML 1ML VIAL 10 MG (14:22)
--- NOTE | 2025-06-19 14:22 | P.PCN_ITS ---
Procedure Date: 06/19/25 Time: 14:10 Anesthesiologist:: Bladimir Sousa CRNA Complications:: None Pre-procedure Diagnosis:: Lumbar radiculopathy. Post-procedure Diagnosis:: Same. Indications for Procedure:: Patient is a pleasant 70-year-old female who comes to clinic today for lumbar ep idural steroid injection. Patient describes low lumbar back pain as constant, dull, aching. She also reports bilateral hip and leg radicular symptoms. She rates her pain 7/10. Procedure Details:: Procedure: Lumbar epidural steroid injection under fluoroscopy Informed consent was obtained and the risks and benefits of the procedure were explained to the patient. The patient was taken to the procedure room and noninvasive monitors placed, including noninvasive blood pressure cuff and pulse oximeter. The back was viewed using C-arm Fluoroscopy and prepped using Chloraprep as a cleansing solution and the L4-L5 interspace was palpated. Skin and subcutaneous tissues were anesthetized using lidocaine 1.5% and a 25-gauge needle. After this, an 18-gauge Touhy epidural needle was placed into the L4-L5 interspace and advanced using fluoroscopic guidance and loss of resistance to air until the epidural space was encountered. After confirmation of needle placement in the epidural space, with dye, a solution containing normal saline, 3 mL and dexamethasone 10 mg were incrementally injected into the lumbar epidural space. The patient tolerated the procedure well with no complications. The patient was observed in the Pain Clinic and then discharged home neurologically intact. Plan and Disposition:: Patient was discharged without incident.
[2025-06-19 14:28] VITALS: BP 134/70; PULSE 113; RESP 18; O2SAT 90
== END 2025-06-19 14:30 | disposition home or self-care (01) ==
PROVIDERS: PCP Internal Medicine; Visit Provider Nurse Anesthetist, Certified Registered
DX: M51.16 Intervertebral disc disorders with radiculopathy, lumbar region (principal); I50.32 Chronic diastolic (congestive) heart failure; J44.9 Chronic obstructive pulmonary disease, unspecified; I25.10 Atherosclerotic heart disease of native coronary artery without angina pectoris; F17.210 Nicotine dependence, cigarettes, uncomplicated; Z88.5 Allergy status to narcotic agent
CPT/HCPCS: 62323; J1100

== ENCOUNTER 2025-06-27 08:07 | Day surgery (SDC) | payer MEDICARE, BC, SELFPAY ==
[2025-06-13 13:13] VITALS: BMI 28.7
[2025-06-27] VITALS (11 sets, daily range): BP systolic 103–146; BP diastolic 56–90; PULSE 77–90; RESP 14–20; TEMP 36.2–36.4; O2SAT 89–97
--- NOTE | 2025-06-27 08:55 | P.PNANES_ITS ---
[facility] Disclaimer: The information contained in this section may have been updated after the patient was seen, as this information can be updated by other users. Medical History Pre-op exam Compression fracture of fifth lumbar vertebra Fall Coronary artery calcification seen on CT scan (HFpEF) heart failure with preserved ejection fraction Mediastinal lymphadenopathy Smoking greater than 30 pack years Fibrosis of lung Hilar lymphadenopathy Lung nodule COPD mixed type Dyspnea on exertion Interatrial cardiac shunt Fracture of toe Contusion of right forearm Right forearm pain Establishing care with new doctor, encounter for Shingles Prolapse of uterus Strain of mid-back Dermatitis Urinary tract infection Urinary problem Sinusitis Acute bronchitis UTI (urinary tract infection) Immunization due Allergic bronchitis URI (upper respiratory infection) Surgical History Hx of cholecystectomy History of tubal ligation Family History Mother Parkinson disease Dementia Father Stroke Brother Cancer lung cancer- 2 brothers Brother Crohn's disease two brothers Social History Smoking Status: Light tobacco smoker tobacco type: cigarettes packs per day: 1 pack-years: 50 smoking status start date: 14 yo second hand exposure: Yes alcohol intake: never substance use type: denies use current occupational status: employed Travel in the last 8 weeks?: None household members: family housing: house marital status: number of children: 2 number of grandchildren: 4 [facility] Anesthesia Checklist Patient Identification Patient Identification: Arm Band and Verbal (Name & ) Structural Data Admitted From: Home Planned Operative Procedure/s: Umbilical hernia Consent for Planned Operative Procedure(s) Verified: Yes Verified Documents: Surgical Consent NPO Status Verified Time NPO: 00:00 Chart Verification Results Verified: ECG Additional verifications Anesthesia Reactions: No Airway Assessment Mallampati Score:: Class II C-Spine Mobility Assessed: Yes TMJ Mobility Assessed: Yes Dentition: Good Dentition Neurological Assessment Level of Consciousness: Awake, Alert and Appropriate Hx Seizures: No Numbness or tingling in extremities: No Anesthesia Plan Anesthesia Risk discussed: Yes Anesthesia Plan: Verified ASA Class: III Anesthesia Type: General
[2025-06-27] MEDS: LACTATED RINGERS 1000ML 1,000 ML 25 ML IV (08:57)
--- NOTE | 2025-06-27 09:07 | EXP.GEN.HP ---
HPI HPI HPI: Patient presents for umbilical hernia repair. She has had an umbilical hernia for quite some time. On 04/25/2025 it became firm, tender, and nonreducible transiently. Ultimately was able to be reduced. She has a history of previous tubal ligation and open cholecystectomy. She has oxygen dependent COPD. She has not had any subsequent problems. After my initial evaluation on 05/03/2025 I felt that the hernia should be repaired given its size, thinning of the overlying skin, and transient incarceration. [facility] Disclaimer: The information contained in this section may have been updated after the patient was seen, as this information can be updated by other users. Medical History Pre-op exam Compression fracture of fifth lumbar vertebra Fall Coronary artery calcification seen on CT scan (HFpEF) heart failure with preserved ejection fraction Mediastinal lymphadenopathy Smoking greater than 30 pack years Fibrosis of lung Hilar lymphadenopathy Lung nodule COPD mixed type Dyspnea on exertion Interatrial cardiac shunt Fracture of toe Contusion of right forearm Right forearm pain Establishing care with new doctor, encounter for Shingles Prolapse of uterus Strain of mid-back Dermatitis Urinary tract infection Urinary problem Sinusitis Acute bronchitis UTI (urinary tract infection) Immunization due Allergic bronchitis URI (upper respiratory infection) Surgical History Hx of cholecystectomy History of tubal ligation Family History Mother Parkinson disease Dementia Father Stroke Brother Cancer lung cancer- 2 brothers Brother Crohn's disease two brothers Social History Smoking Status: Light tobacco smoker tobacco type: cigarettes packs per day: 1 pack-years: 50 smoking status start date: 14 yo second hand exposure: Yes alcohol intake: never substance use type: denies use current occupational status: employed Travel in the last 8 weeks?: None household members: family housing: house marital status: number of children: 2 number of grandchildren: 4 Have you lived/traveled outside [place] in past 30 days?: No Contact w/someone who lives/traveled outside [place] past 30 days?: No Exposure to someone with infectious disease in past 14 days?: No Do you have a fever (greater than 100.4 F or 38 C)?: No Have you tested positive for COVID-19?: No Exposed to someone with COVID-19 in past 14 days?: No Do you have a sore throat?: No Do you have a cough?: No Do you have any weakness?: No Do you have any diarrhea?: No Are you experiencing any unusual bleeding?: No Do you have any muscle aches/pain?: No Do you have any abdominal pain?: No Are you experiencing loss of taste or smell?: No Other Medical History Have you received the Flu Vaccine for this season: No Have you received the Pneumonia Vaccine: No Meds Home Medications and Allergies Home Medications ?Medication ?Instructions ?Recorded ?Confirmed ?Type docusate sodium 100 mg capsule 100 mg PO DAILY PRN BOWELS 03/08/23 06/27/25 History (Colace) cholecalciferol (vitamin D3) 50 50 mcg PO DAILY 01/14/24 06/27/25 History mcg (2,000 unit) capsule empagliflozin 10 mg tablet 10 mg PO DAILY #90 tabs 07/10/24 06/27/25 Rx (Jardiance) spironolactone 50 mg tablet 50 mg PO DAILY #90 tabs 09/20/24 06/27/25 Rx cetirizine 10 mg tablet (Allergy 10 mg PO DAILY 03/05/25 06/27/25 History Relief (cetirizine)) carvedilol 6.25 mg tablet See Rx Instructions .Route 03/19/25 06/27/25 Rx .COMPLEX #180 tabs furosemide 40 mg tablet See Rx Instructions .Route 04/04/25 06/27/25 Rx .COMPLEX #30 tabs albuterol sulfate 90 mcg/actuation 2 puff inhalation Q4-6H PRN 04/10/25 06/27/25 Rx aerosol inhaler (Ventolin HFA) shortness of breath or wheezing #6.7 grams duloxetine 30 mg capsule,delayed 30 mg PO BID #60 caps 04/24/25 06/27/25 Rx release tizanidine 4 mg tablet See Rx Instructions .Route 04/30/25 06/27/25 Rx .COMPLEX #90 tabs fluticasone fur. 100 mcg-umeclid See Rx Instructions .Route 05/04/25 06/27/25 Rx 62.5 mcg-vilant 25 mcg .COMPLEX #60 ea inhalat.powder (Trelegy Ellipta) trazodone 50 mg tablet 50 mg PO HS PRN for insomnia #90 05/31/25 06/27/25 Rx tabs buspirone 10 mg tablet 10 mg PO TID #270 tabs 06/24/25 06/27/25 Rx New Prescriptions to Start Prescriptions: Allergies Allergy/AdvReac Type Severity Reaction Status Date / Time codeine Allergy Mild Anxiety Verified 06/27/25 08:37 Exam Data for Last 24 hours Vital signs and Labs for Last 24 Hours: Temp Pulse Resp BP Pulse Ox O2 Del Method O2 Flow Rate 97.6 F 86 18 128/77 92 L Nasal Cannula 2 06/27/25 08:39 06/27/25 08:39 06/27/25 08:39 06/27/25 08:39 06/27/25 08:39 06/27/25 08:39 06/27/25 08:39 Constitutional Constitutional: no acute distress *Routine HEENT Exam Head: Present normocephalic Eye: Present EOMI and PERRL ENT: Present mucous membranes moist *Routine Neck Exam Neck: Present supple; Absent lymphadenopathy *Routine Respiratory Exam Respiratory: Present decreased breath sounds *Routine Cardiovascular Exam Cardiovascular: Present RRR *Routine Abdominal Exam Abdominal: Present soft and hernia *Routine Rectal Exam Rectal:: deferred *Routine Genitalia Exam Genitalia:: deferred *Routine Extremities Exam Extremities: Absent cyanosis, clubbing or edema *Routine Skin Exam Skin: Present warm; Absent rash *Routine Neurological Exam Neurological: Present alert and oriented X3 Assessment and Plan *Assessment and plan (1) Umbilical hernia: Status: Acute Category: Medical Code(s): K42.9 - Umbilical hernia without obstruction or gangrene Plan Plan for open umbilical hernia repair.
[2025-06-27] MEDS: LIDOCAINE 1% 20ML MDV 20 ML (09:20)
--- NOTE | 2025-06-27 10:16 | EXP.OP.NOTE ---
Date of procedure: 06/27/25 Pre-op Diagnosis:: Umbilical hernia Post-op Diagnosis:: Chronically incarcerated umbilical hernia containing omentum Procedure performed:: Open repair of chronically incarcerated umbilical hernia with placement of medium size (6.4 cm) Bard Ventralex mesh Surgeon:: Elvis Theodore MD PHOTOENGRAVING PROOFER:: Dangelo Coffman Anesthesia: GETA Estimated blood loss (mL): 15 Clinical Note:: Patient presents for umbilical hernia repair. She has had an umbilical hernia for quite some time. On 04/25/2025 it became firm, tender, and nonreducible transiently. Ultimately was able to be reduced. She has a history of previous tubal ligation and open cholecystectomy. She has oxygen dependent COPD. She has not had any subsequent problems. After my initial evaluation on 05/03/2025 I felt that the hernia should be repaired given its size, thinning of the overlying skin, and transient incarceration. Operative findings:: She had a relatively small defect measuring about 1 cm with a large amount of chronically incarcerated omentum within the hernia sac within the umbilicus. Operative note:: Consent was obtained and patient was taken to the operating room. She was given preoperative intravenous antibiotics. In the operating room she was placed in a supine position. General anesthesia was induced via endotracheal tube. Abdomen was prepped and draped in the standard surgical fashion. Subumbilical incision was made. Dissection was carried down through superficial subcutaneous tissues to the hernia sac. Hernia sac was incised and ultimately the the relatively large amount of omentum within the hernia sac was dissected free. This was unable to be reduced even once dissecting out of the subumbilical tissue. It was sequentially clamped divided and ligated with Vicryl ties. It was able to be reduced into the peritoneal cavity. There was some oozing from the edge of the hernia sac at the fascia and this was ligated with Vicryl tie. The fascial defect was rather small measuring about 1 cm. It was opened somewhat to allow for visualization of the reduced contents to assess for any ongoing bleeding of which none was noted. Medium sized Bard Ventralex mesh measuring 6.4 cm in diameter was inserted into the peritoneal cavity. While applying elevation of the fascia the mesh was oriented to cover the defect with good overlap. Traction was placed on the tails of the mesh and they were sutured superiorly and inferiorly to the fascial edges with 2-0 Prolene sutures. The tails of the mesh were then cut flush with the fascia. Repair appeared adequate. Local anesthetic was infiltrated. Attention was then turned to reconstruction of the umbilicus. The umbilical dermal tissue was reapproximated to the fascia inferior to the defect with several interrupted 2-0 Vicryl sutures. Deep dermal tissues of the skin incision were closed with interrupted 3-0 Vicryl. Skin was closed with 4-0 Monocryl in a running subcuticular fashion. Dermabond and dressings were applied. Condition: stable Disposition: PACU Complications:: None immediately apparent
--- NOTE | 2025-06-27 10:21 | EXP.ANES.I ---
[facility] Anesthesia Record Part I Anesthesia Record I Intake, IV Amount: 600 Hydration: Adequate Estimated blood loss (mL): 0 Urine output (mL): 0 Blood Products used (#): none Blood Pressure: 146/90 SaO2: 89 Pulse Rate: 90 Airway Patency: Patent Respiratory Rate: 14 Temperature: 97.2 F Patient is:: Awake and Nasal O2 Stable to PACU at:: 10:16 Comments:: Patient started with an 02 sat of 83% prior to induction. Patient breathing normally w/o distress with 02 sat of 89% on 3L NC in PACU.
[2025-06-27] MEDS: IPRATROPIUM/ALBUTEROL 3 ML NEB IH (10:30)
--- NOTE | 2025-06-27 10:40 | SUR.PHASEI ---
1033-RT at bedside for duoneb 1040-pt able to deep breathe and cough using pillow to splint abdomen. pt coughed up moderate sized yellow, thick sputum. pt rating pain at 2/10 on numeric pain scale. pt states this is tolerable and she would not like pain meds
[2025-06-27] MEDS: MORPHINE 2MG/ML SYRINGE 1 MG IV (10:47)
[2025-06-27] MEDS: ONDANSETRON 4MG/2ML VIAL 4 MG IV (10:50)
--- NOTE | 2025-06-27 13:55 | P.PNANES_ITS ---
[facility] Anesthesia Record Part II Anesthesia Record Part II Discharge Time: 11:25 Destination: Surgical Day Care (OP Surgery) PACU nurse assessment reviewed?: Yes Patient Condition:: Good Anesthesia Complications:: None Swallowing reflex intact?: Yes Airway Patency: Patent Cyanosis?: No Blood Pressure: 107/59 SaO2: 92 Respiratory Rate: 20 Pulse Rate: 82 Temperature: 97.2 F Mental Status: Alert & Oriented Pain level:: 0 Nausea and/or vomitting:: None Intake, IV Amount: 0 Hydration: Adequate
== END 2025-06-27 11:25 | disposition home or self-care (01) ==
PROVIDERS: PCP Internal Medicine; Visit Provider Surgery
DX: K42.0 Umbilical hernia with obstruction, without gangrene (principal); J44.9 Chronic obstructive pulmonary disease, unspecified; Z99.81 Dependence on supplemental oxygen; Z90.49 Acquired absence of other specified parts of digestive tract; Z98.51 Tubal ligation status; F17.210 Nicotine dependence, cigarettes, uncomplicated; I50.32 Chronic diastolic (congestive) heart failure; Z79.51 Long term (current) use of inhaled steroids; Z79.899 Other long term (current) drug therapy; Z88.5 Allergy status to narcotic agent
CPT/HCPCS: 49592; 94640; 96374; C1781; J1100; J2003; J2270; J2405; J2704; J2795; J3010; J7120